=== PATIENT | male | born 1940 | race Caucasian/White ===

== ENCOUNTER 2017-09-27 08:29 | Emergency (ER) | payer MEDICARE, OTHER, SELFPAY ==
[2017-09-27 08:30] VITALS: BP 126/63; PULSE 111; RESP 24; TEMP 36.6; O2SAT 96; BMI 23.3
--- NOTE | 2017-09-27 08:35 | EKG12_ITS ---
Test Reason : N/V Blood Pressure : / mmHG Vent. Rate : 081 BPM Atrial Rate : 081 BPM P-R Int : 166 ms QRS Dur : 088 ms QT Int : 384 ms P-R-T Axes : 072 -10 067 degrees QTc Int : 446 ms Normal sinus rhythm Low voltage QRS Borderline ECG Confirmed by JUN DESAI, EMEKA ([id number]), editor trade journal JESUS SORENSEN ([id number]) on 10/01/2017 1:14:06 PM Referred By: RADHA Confirmed By:EMEKA BARAHONA MD
--- NOTE | 2017-09-27 08:41 | CT_ITS ---
STUDY: CT ABDOMEN AND PELVIS WITHOUT CONTRAST REASON FOR EXAM: Male, 77 years old. Abdominal pain, nausea, vomiting and diarrhea. RADIATION DOSAGE (If Supplied By Facility): CTDIvol = ( 6.68 ) mGy, DLP = ( 340.51 ) mGycm TECHNIQUE: Transaxial images were obtained from the dome of the diaphragm to the symphysis pubis without oral contrast, and without intravenous contrast. Sagittal and coronal images were reconstructed. Individualized dose optimization techniques were used for this CT. COMPARISON: 09/29/2014 CT abdomen/pelvis. FINDINGS: CT abdomen limited without IV contrast. The visualized lung bases appear clear of focal pulmonary consolidation or pleural effusion with only minimal groundglass opacities of subsegmental atelectasis noted. The visualized portions of the heart are within normal limits. No pericardial effusion seen. Normal liver. Normal intrahepatic and extrahepatic biliary system. Gallbladder not visualized, most likely prior cholecystectomy. Normal spleen. Normal pancreas. Normal bilateral adrenal glands. Normal right kidney. Normal left kidney. No hydronephrosis or hydroureter seen. Redemonstration prominent left extrarenal pelvis and/or peripelvic cysts, appear unchanged in CT study 09/29/2014. Stomach appears distended mostly with fluid and minimal nondependent air and shows no large bulky focal lesion. Visualized distal esophagus appears within normal limits. However, the small bowel shows multiple air-fluid levels and appear prominent without dilatation up to 2.9 cm diameter. Transition point is not identified and fluid-filled cecum is seen and the ascending colon. The appendix is suspected retrocecally and medially, does not appear thickened. Normal abdominal aorta. Normal inferior vena cava. Normal retroperitoneum. Moderate distended urinary bladder shows no large gross bulky focal lesion. Seminal vesicles appear symmetric. Prostate is approximate 3.5 x 5.4 cm, mildly enlarged, previously 4.6 x 4.9 cm. No abdomen/pelvis or visualized inguinal large gross bulky adenopathy identified. Normal abdominal wall without ventral/inguinal bowel herniation identified. Nonacute osseous structures. Moderate degenerative thoracolumbar junction noted. Mild anterolisthesis L4-L5 noted, grade 1. With associated severe spinal canal stenosis noted. Fairly severe L3-L4 and moderate L5-S1 disc space narrowing seen. Mild posterior central osteophytosis L5-S1 also noted CT/Abdomen/Pelvis without Cont IMPRESSION: CT findings most consistent with ileus or gastroenteritis with fluid-filled nondilated small bowel loops throughout the jejunum and ileum without transitional zone and with fluid-filled cecum and ascending colon. Clinical correlation for malabsorption syndrome also recommended. CT findings most suggestive of prior cholecystectomy. Clinical correlation recommended. Mild prostamegaly, mildly increased since CT abdomen/pelvis 09/29/2014. Clinical correlation recommended. Severe spinal stenosis L4-L5 as described above associated with mild grade I anterolisthesis. Limitations above. Electronically Signed: Lemuel Ron, at 12:05 EDT Tel , Service support ,
--- NOTE | 2017-09-27 08:44 | ED.DCSUM_ITS ---
- ER Visit Summary Date of Service: 09/27/17 Chief Complaint: [] Lower abdominal pain diarrhea nausea History of Present Illness: The patient is a 77 M [] prostatitis, prior cholecystectomy, reports that for about 3 weeks she has had intermittent pain to the left lower quadrant that would occur almost always medially after he ate he would then have a bowel movement or pass gas and feel better for the last 2 days after eating he has had pain to the lower abdomen that has not gone away he also reports now is having copious diarrhea he has a sense of vomiting but is only had nausea. No fever no cough no blood in the diarrhea. He was on antibiotics 5 weeks ago related to prostate issue, he has no history of C. difficile exposure to bad food or anyone has been ill, he has had prior colonoscopies are unremarkable he denies any other past history Physical Examination: [] He is vitals are within normal range she is resting in the bed he is complaining of pain to the left lower abdomen head neck chest unremarkable the abdomen is soft there is some mild discomfort to the left lower abdomen there is no rebound guarding organomegaly the exam shows no hernias no testicular abnormalities on inspection the back is unremarkable neurologically he is awake alert moving all 4 extremities his extremities are unremarkable Test Results: [] Emergency Department Course and Treatment: [] Given all of the above he will be treated with IV fluids medications CT of abdomen Labs are unremarkable the CT scan of the abdomen shows per radiology nothing acute, the GI system seems to be full of fluid appendix appeared normal He has not been able to provide stool sample for C. difficile analysis he is feeling better he has no sense of stool sample. He wants to go home explained all the above to him of explained and felt his family doctors stay in a bland diet he will be given Zofran to use as needed and return for change in symptoms Treatment Plan: [] Disposition: [] Stable home, please note patient was unable to provide stool sample for C. difficile Impression: [] Intermittent abdominal pain with diarrhea resolved recent antibiotic use This note was generated with [employer] dictation software. It may contain incorrect words, spelling, and punctuation that were not noted in review of the chart prior to signing ED Disposition - Plan for ED Patient: Chief Complaint: Nausea/Vomiting/Diarrhea Referrals: Nas Arvizu Chi, MD [Primary Care Provider] -
[2017-09-27 09:49] LABS: Absolute Lymphocyte Count 0.36 X10^3/ul (0.83-4.51); Absolute Neutrophil Count 6.8 X10^3/uL (2.0-7.7); Basophil# 0.01 X10^3/uL; Basophil% 0.1 % (0-1); Differential Indicated SCAN CRITERIA MET; Hematocrit 44.9 % (40-54); Hemoglobin 15.3 g/dl (13.0-16.5); Lymphocyte # 0.36 X10^3/ul (4.0); Lymphocyte % 4.7 % (19-41); Mean Corp Hgb Conc 34.1 g/gl (32-36); Mean Corpuscular Hgb 33.1 pg (27.0-32.0); Mean Corpuscular Volume 97.2 fL (80-94); Mean Platelet Vol. 9.2 fl (6.2-12.0); Monocyte# 0.56 X10^3/uL; Monocyte% 7.2 % (0-10); Neutrophil # 6.79 X10^3/uL (2.7-7.7); Neutrophil % 87.9 % (47-70); POSITIVE COUNT NO; POSITIVE DIFFERENTIAL YES; POSITIVE MORPHOLOGY NO; Platelet Count 228 K/mm3 (150-450); RBC Distribution Width CV 12.7 % (11.6-14.6); RBC Distribution Width SD 44.1 fl (35.1-43.9); Red Blood Count 4.62 M/mm3 (4.6-6.2); White Blood Count 7.7 K/mm3 (4.4-11.0)
[2017-09-27] MEDS: Ondansetron 4 MG/2 ML Vial IV (09:56)
[2017-09-27] MEDS: Morphine 4 MG/ML Syringe IV (09:59)
[2017-09-27] MEDS: 0.9% Normal Saline 1,000 ML 999 ML IV (10:01)
[2017-09-27 10:03] VITALS: BP 121/65; PULSE 76; RESP 18; O2SAT 99
[2017-09-27 10:09] LABS: AST(SGOT) 13 U/L (15-37); Alanine Aminotransfer ALT/SGPT 21 U/L (16-61); Albumin, Serum 3.5 g/dL (3.2-5.0); Alkaline Phosphatase 89 U/L (45-117); Anion Gap 8 (5-15); BUN 26 mg/dL (7-18); BUN/Creat Ratio 23.6 RATIO (10-20); Bilirubin, Direct 0.21 mg/dL (0.00-0.30); Calcium,Total 7.9 mg/dL (8.5-10.1); Chloride 105 mmol/L (98-107); EST Glomerular Filtration Rate 69 mL/min (>60); Est Glom Filt Rate - Afr Amer 84 mL/min (>60); Estimated Creatinine Clearance 60.85 ml/min; Globulin 3.5 g/dL (2.2-4.2); Glucose 122 mg/dL (74-106); Lipase 106 U/L (73-393); Potassium 3.5 mmol/L (3.5-5.1); Sodium Level 139 mmol/L (136-145)
[2017-09-27 10:17] LABS: Red Cell Morphology NORM C+C NORMAL (NORM C&C)
[2017-09-27 11:53] VITALS: BP 111/64; PULSE 70; RESP 18
[2017-09-27] MEDS: 0.9% Normal Saline 1,000 ML 125 ML IV (11:54)
--- NOTE | 2017-09-27 12:57 | ED.DEP ---
ED Disposition - Plan for ED Patient: Chief Complaint: Nausea/Vomiting/Diarrhea Instructions: ED Vomiting Diarrhea Nonspecific Ad Referrals: Nas Arvizu Chi, MD [Primary Care Provider] -
--- NOTE | 2017-09-27 12:59 | ED.DEP ---
ED Disposition - Plan for ED Patient: Chief Complaint: Nausea/Vomiting/Diarrhea Instructions: ED Vomiting Diarrhea Nonspecific Ad Prescriptions: Ondansetron HCl [Zofran] 4 mg PO BID #10 tab Referrals: Nas Arvizu Chi, MD [Primary Care Provider] -
[2017-09-27 13:50] VITALS: BP 115/64; PULSE 74; RESP 18; O2SAT 98
== END 2017-09-27 13:52 | disposition home or self-care (01) ==
PROVIDERS: Emergency Provider Emergency Medicine; Family Provider Family Medicine Geriatric Medicine; PCP Family Medicine Geriatric Medicine
DX: R10.32 Left lower quadrant pain (principal); R19.7 Diarrhea, unspecified; Z90.49 Acquired absence of other specified parts of digestive tract; Z79.82 Long term (current) use of aspirin
CPT/HCPCS: 74176; 80048; 80076; 83690; 84484; 85025; 93005; 96361; 96374; 96375; 99283; J7030; A4216; J2405

== ENCOUNTER → 2017-10-02 16:50 | Outpatient (CLI) | payer MEDICARE, OTHER, SELFPAY ==
--- NOTE | 2017-10-02 16:55 | RAD_ITS ---
XR Spine Lumbar 2 or 3 Views INDICATION: LUMBAR RADICULOPATHY COMPARISON: CT abdomen and pelvis September 27, 2017 TECHNIQUE: Frontal and lateral views of the lumbar spine and coned-down view of the lumbosacral junction FINDINGS: There is mild anterolisthesis of L4 on L5, otherwise normal lumbar lordosis, no significant scoliosis. Height of the vertebral bodies is preserved. Multilevel facet arthritic changes are suggested. The L3-4 disc space appears decreased. 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 Comparison CT from September 27, 2017 confirms mild anterolisthesis of L4 on L5 is associated spinal canal and bilateral neuroforaminal stenosis. Consider further evaluation with MRI if clinical symptoms persist. at 1739 Reported and signed by: Sonali Fischer MD Electronically Signed: Sonali Fischer MD at 16:37 EDT Tel , Service support ,
== END ==
PROVIDERS: Family Provider Family Medicine Geriatric Medicine; PCP Family Medicine Geriatric Medicine; Visit Provider Family Medicine Geriatric Medicine
DX: M51.16 Intervertebral disc disorders with radiculopathy, lumbar region (principal)
CPT/HCPCS: 72100

== ENCOUNTER → 2018-01-14 15:07 | Outpatient (CLI) | payer MEDICARE, OTHER, SELFPAY ==
[2018-01-14 18:03] LABS: Vitamin D,25 Hydroxy 20.7 ng/mL (29.95-100.01)
[2018-01-14 18:06] LABS: ALB/GLOB Ratio 1.1 RATIO (0.9-2.4); AST(SGOT) 17 U/L (15-37); Alanine Aminotransfer ALT/SGPT 25 U/L (16-61); Albumin, Serum 3.7 g/dL (3.2-5.0); Alkaline Phosphatase 90 U/L (45-117); Anion Gap 7 (5-15); BUN 17 mg/dL (7-18); BUN/Creat Ratio 18.2 RATIO (10-20); Calcium,Total 8.4 mg/dL (8.5-10.1); Chloride 106 mmol/L (98-107); Creatinine, Serum 0.93 mg/dL (0.70-1.30); EST Glomerular Filtration Rate 83 mL/min (>60); Est Glom Filt Rate - Afr Amer 101 mL/min (>60); Globulin 3.5 g/dL (2.2-4.2); Glucose 85 mg/dL (74-106); Protein, Total 7.2 g/dL (6.4-8.2); Sodium Level 141 mmol/L (136-145); Thyroid Stim Hormone (TSH) 1.69 uIU/mL (0.358-3.74)
[2018-01-14 18:12] LABS: Basophil# 0.01 X10^3/uL; Basophil% 0.2 % (0-1); Eosinophil# 0.18 X10^3/uL; Hematocrit 40.5 % (40-54); Hemoglobin 13.4 g/dl (13.0-16.5); Lymphocyte # 1.17 X10^3/ul (4.0); Lymphocyte % 19.2 % (19-41); Mean Corp Hgb Conc 33.1 g/gl (32-36); Mean Corpuscular Hgb 32.1 pg (27.0-32.0); Mean Corpuscular Volume 97.1 fL (80-94); Mean Platelet Vol. 9.8 fl (6.2-12.0); Monocyte# 0.72 X10^3/uL; Monocyte% 11.8 % (0-10); Neutrophil # 3.99 X10^3/uL (2.7-7.7); Neutrophil % 65.6 % (47-70); POSITIVE COUNT NO; POSITIVE DIFFERENTIAL NO; POSITIVE MORPHOLOGY NO; Platelet Count 207 K/mm3 (150-450); RBC Distribution Width CV 12.7 % (11.6-14.6); RBC Distribution Width SD 44.2 fl (35.1-43.9); Red Blood Count 4.17 M/mm3 (4.6-6.2); White Blood Count 6.1 K/mm3 (4.4-11.0)
== END ==
PROVIDERS: Visit Provider Family Medicine Geriatric Medicine
DX: E55.9 Vitamin D deficiency, unspecified (principal); R53.83 Other fatigue
CPT/HCPCS: 36415; 80053; 82306; 84443; 85025

== ENCOUNTER → 2018-02-06 12:07 | Outpatient (CLI) | payer MEDICARE, OTHER, SELFPAY ==
[2018-02-06 12:58] LABS: Absolute Lymphocyte Count 0.96 X10^3/ul (0.83-4.51); Absolute Neutrophil Count 3.2 X10^3/uL (2.0-7.7); Basophil# 0.03 X10^3/uL; Basophil% 0.6 % (0-1); Lymphocyte # 0.96 X10^3/ul (4.0); Lymphocyte % 18.9 % (19-41); Mean Corp Hgb Conc 34.1 g/gl (32-36); Mean Corpuscular Hgb 32.1 pg (27.0-32.0); Mean Corpuscular Volume 94.2 fL (80-94); Mean Platelet Vol. 9.3 fl (6.2-12.0); Monocyte# 0.82 X10^3/uL; Monocyte% 16.1 % (0-10); Neutrophil # 3.17 X10^3/uL (2.7-7.7); Neutrophil % 62.2 % (47-70); Platelet Count 207 K/mm3 (150-450); RBC Distribution Width CV 12.6 % (11.6-14.6); RBC Distribution Width SD 42.7 fl (35.1-43.9); Red Blood Count 4.67 M/mm3 (4.6-6.2); White Blood Count 5.1 K/mm3 (4.4-11.0)
[2018-02-06 13:08] LABS: Differential Indicated SCAN CRITERIA MET; POSITIVE COUNT NO; POSITIVE DIFFERENTIAL NO; POSITIVE MORPHOLOGY YES
[2018-02-06 13:10] LABS: ALB/GLOB Ratio 0.9 RATIO (0.9-2.4); AST(SGOT) 17 U/L (15-37); Alanine Aminotransfer ALT/SGPT 19 U/L (16-61); Albumin, Serum 3.5 g/dL (3.2-5.0); Alkaline Phosphatase 90 U/L (45-117); Amylase 48 U/L (25-115); Anion Gap 8 (5-15); BUN 17 mg/dL (7-18); BUN/Creat Ratio 15.3 RATIO (10-20); Calcium,Total 8.5 mg/dL (8.5-10.1); Chloride 102 mmol/L (98-107); Creatinine, Serum 1.11 mg/dL (0.70-1.30); EST Glomerular Filtration Rate 68 mL/min (>60); Est Glom Filt Rate - Afr Amer 83 mL/min (>60); Globulin 4.1 g/dL (2.2-4.2); Glucose 95 mg/dL (74-106); Lipase 94 U/L (73-393); Potassium 3.7 mmol/L (3.5-5.1); Protein, Total 7.6 g/dL (6.4-8.2); Sodium Level 139 mmol/L (136-145)
== END ==
PROVIDERS: Family Provider Family Medicine Geriatric Medicine; PCP Family Medicine Geriatric Medicine; Visit Provider Family Medicine Geriatric Medicine
DX: R10.9 Unspecified abdominal pain (principal); R19.7 Diarrhea, unspecified
CPT/HCPCS: 36415; 80053; 82150; 83690; 85025

== ENCOUNTER → 2018-02-06 16:16 | Outpatient (CLI) | payer MEDICARE, OTHER, SELFPAY ==
--- OUTSIDE RECORDS SUMMARY | 2018-07-27 00:20 | XMS RPT_ITS ---
:1940 Author Organization OHIP Support Name Relationship Address Phone ALEXANDER PERAZA Unavailable [address] + [place] [address] R Unavailable Unavailable Unavailable LAZO, TOM Unavailable [address] + [place] [address] SHAQBASIA ALEXANDER Unavailable [address] + [place] [address] R Unavailable Unavailable Unavailable LAZO, TOM Unavailable [address] + [place] [address] ALEXANDER PERAZA Unavailable [address] + [place] [address] R Unavailable Unavailable Unavailable LAZO, TOM Unavailable [address] + [place] [address] ALEXANDER PERAZA Unavailable [address] + [place] [address] R Unavailable Unavailable Unavailable LAZO, TOM Unavailable [address] + [place] [address] ALEXANDER PERAZA Unavailable [address] + [place] [address] R Unavailable Unavailable Unavailable LAZO, TOM Unavailable [address] + [place] [address] ALEXANDER PERAZA Unavailable [address] + [place] [address] R Unavailable Unavailable Unavailable LAZO, TOM Unavailable [address] + [place] [address] ALEXANDER PERAZA Unavailable [address] + [place] [address] R Unavailable Unavailable Unavailable LAZO, TOM Unavailable [address] + [place] [address] ALEXANDER PERAZA Unavailable [address] + [place] [address] R Unavailable Unavailable Unavailable TOM LAZO Unavailable [address] + [place] [address] ALEXANDER PERAZA Unavailable [address] + [place] [address] R Unavailable Unavailable Unavailable TOM LAZO Unavailable [address] + [place] [address] Care Team Providers Name Role Phone Nolberto, Nas Chi Attending Unavailable Nolberto, Nas Chi Primary Care Unavailable Adelaide Giles Attending Unavailable Nolberto, Nas Chi Primary Care Unavailable Nolberto, Nas Chi Attending Unavailable Nolberto, Nas Chi Primary Care Unavailable Nolberto, Nas Chi Primary Care Unavailable Adelaida Kramer Attending Unavailable Nolberto, Nas Chi Attending Unavailable Nolberto, Nas Chi Referring Unavailable Nolberto, Nas Chi Primary Care Unavailable Nolberto, Nas Chi Attending Unavailable Nolberto, Nas Chi Attending Unavailable Nolberto, Nas Chi Primary Care Unavailable Samy Riggs Attending Unavailable Nolberto, Nas Chi Primary Care Unavailable Oneil Samy Referring Unavailable Nolberto, Nas Chi Attending Unavailable Nolberto, Nas Chi Referring Unavailable Nolberto, Nas Chi Primary Care Unavailable PROBLEMS PROBLEMS DATE TYPE CONDITION / CODE ATTENDING STATUS SOURCE 01/17/2018 Unknown 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, 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, Community unspecified / Hospital E55.9(ICD-10) Repository 01/17/2018 Unknown R10.32 - Left Jwayyed, Active [place] lower quadrant [facility] pain / Hospital R10.32(ICD-10) Repository PROCEDURES PROCEDURES No Procedure Records FoundRESULTS RESULTS CREATININE FINGERSTICK Collected: 04/17/2018 Status: F Source: [place] 12:30 PM [facility] HOSPITAL REPOSITORY TYPE CODE TESTS RESULT OUT OF RANGE REFERENCE UNITS LAB L9100.0210 0.70-1.30 mg/dL Normal CREATININE WB 0.8 LAB L9100.0220 >60 mL/min EGFR WB Normal > 60.0000 Performed By: #### L9100.0200 #### [facility] Laboratory Point of Care [address] [place] [address] BRAIN W/WO CONTRAST Observed: 04/17/2018 Status: F Source: [place] 12:26 PM [facility] REPOSITORY [facility] Imaging Services [address] [place] [address] Brain W/WO Contrast MR#: [id number] Acct: [id number] Name: EMY PERAZA Rep #: [id number] : 1940 M 78 From: Gayla Davis PCP: Nolberto DESAI,[facility] Status: REG CLI Study: Brain W/WO Contrast Date of Exam: 04/17/18 Exam# [id number] Ordering Dr: Samy Riggs MD STUDY: MRI BRAIN WITH AND WITHOUT CONTRAST (ATTENTION INTERNAL AUDITORY CANALS - I.A.C.'s) REASON FOR EXAM: Male, 78 years old. LEFT TINNITUS, ASYMMETRIC HEARING LOSS -- sudden left hearing loss gradually returning. TECHNIQUE: Standardized multiplanar fat and water weighted pulse sequences were obtained. 7 ml of Gadavist contrast material was administered intravenously for the contrast portion of the examination. # of Images: 442 COMPARISON: None. FINDINGS: Normal bilateral temporal bones. Normal bilateral internal auditory canals. There is no demonstrated intracanalicular or cisternal vestibular schwannoma (acoustic neuroma). There is no enhancement of the bilateral VIIth or VIIIth cranial nerves. Normal bilateral cochlea, vestibules and semicircular canals. There is mild cerebral atrophy with widening of the extra- axial spaces and ventricular dilatation. Normal white matter tracts of the supratentorial brain. Normal bilateral basal ganglia. Normal thalami. Normal flow voids within the major intracranial circulation suggesting patency by spin echo criteria. Normal venous enhancement. There is no enhancing intra-axial or extra-axial abnormality. There is no extra-axial fluid accumulation. Normal sella turcica, pituitary gland, infundibular stalk, optic chiasm and hypothalamus. Normal tectal plate and pineal gland. Normal midbrain, rebecca and medulla. Normal cerebellum. Normal basal cisterns. No demonstrated orbital abnormality, within the constraints of a routine brain study. Normal visualized paranasal sinuses. Normal calvarium and skull base. Normal visualized soft tissue structures. Normal visualized upper cervical spine. MRI/Brain W/WO Contrast IMPRESSION: Unremarkable unenhanced and enhanced MRI of the bilateral internal auditory canals (I.A.C's). Electronically Signed: Gayla Davis MD at 13:09 EDT Tel , Service support , CC: Samy Riggs MD; Nas Arvizu MD Doll Wig Maker: Signed CBC W/DIFF, AUTOMATED Collected: 02/06/2018 Status: F Source: [place] 12:09 PM [facility] REPOSITORY TYPE CODE TESTS RESULT OUT OF RANGE REFERENCE UNITS LAB L100.1000 4.4-11.0 K/mm3 Normal WBC 5.1 LAB L100.1200 4.6-6.2 M/mm3 Normal RBC 4.67 LAB L100.1300 13.0-16.5 g/dl Normal HGB 15.0 LAB L100.1400 40-54 % Normal HCT 44.0 LAB L100.1500 80-94 fL High MCV 94.2 LAB L100.1600 27.0-32.0 pg High MCH 32.1 LAB L100.1700 32-36 g/gl Normal MCHC 34.1 LAB L100.1810 11.6-14.6 % Normal RDW CV 12.6 LAB L100.1820 35.1-43.9 fl Normal RDW SD 42.7 LAB L100.1900 150-450 K/mm3 Normal PLT 207 LAB L100.2000 6.2-12.0 fl Normal MPV 9.3 LAB L100.2100 47-70 % Normal NEUT% 62.2 LAB L100.2200 19-41 % Low LY% 18.9 LAB L100.2300 0-10 % High MONO% 16.1 LAB L100.2400 0-5 % Normal EO% 2.0 LAB L100.2500 0-1 % Normal BASO% 0.6 LAB L100.2550 0.0-0.9 % Normal IM GRAN % 0.200 Result Comment: IG% - Immature Granulocytes (promyelocytes, myelocytes and metamyelocytes) > 1% indicates that a LEFT SHIFT is Present. LAB L100.2620 2.0-7.7 X10 3/uL Normal Absolute Neut 3.2 LAB L100.2720 0.83-4.51 X10 3/ul Normal Absolute Lymph 0.96 LAB L100.4500 Normal SMEAR COMMENT COMMENT Result Comment: SLIDE SCANNED - RARE ATYPICAL LYMPHS SEEN. Performed By: #### L100.0100 #### [facility] Laboratory [address] [place], [address] COMPREHENSIVE METABOLIC Collected: 02/06/2018 Status: F Source: [facility] 12:09 PM [facility] REPOSITORY TYPE CODE TESTS RESULT OUT OF RANGE REFERENCE UNITS LAB L501.0100 74-106 mg/dL Normal GLU 95 Result Comment: Please note revised GLUCOSE reference range effective 2017. LAB L501.1000 7-18 mg/dL Normal BUN 17 LAB L501.1100 0.70-1.30 mg/dL Normal CREAT,SERUM 1.11 Result Comment: The validity of the calculated GFR AND GFRAA in patients over 70 years has not been determined. Clinical correlation is essential. LAB L501.1110 >60 mL/min Normal EST GFR 68 Result Comment: Non- GFR Calc LAB L501.1115 >60 mL/min Normal EST GFR - AA 83 Result Comment: GFR Calc LAB L501.1300 10-20 RATIO Normal BUN/CRE 15.3 LAB L501.1500 6.4-8.2 g/dL T Normal PROT 7.6 LAB L501.1800 3.2-5.0 g/dL Normal ALB 3.5 LAB L501.1950 2.2-4.2 g/dL Normal GLOB 4.1 LAB L501.2000 0.9-2.4 RATIO Normal A/G 0.9 LAB L501.2200 8.5-10.1 mg/dL CA Normal 8.5 LAB L501.4100 15-37 U/L Normal AST 17 LAB L501.4305 45-117 U/L Normal ALK P 90 LAB L501.4405 16-61 U/L Normal ALT 19 LAB L501.4600 0.20-1.00 mg/dL T Normal BILI 0.40 LAB L501.5300 136-145 mmol/L NA Normal 139 LAB L501.5600 3.5-5.1 mmol/L K Normal 3.7 LAB L501.5900 98-107 mmol/L CL Normal 102 LAB L501.6100 21.0-32.0 mmol/L Normal CO2 29.0 LAB L501.6200 5-15 Normal GAP 8 Performed By: #### L500.4050, L501.2400, L501.2450 #### [facility] Laboratory [address] [place], [address] AMYLASE Collected: 02/06/2018 Status: F Source: [place] 12:09 PM [facility] REPOSITORY TYPE CODE TESTS RESULT OUT OF RANGE REFERENCE UNITS LAB L501.2400 25-115 U/L Normal NITHYA 48 Performed By: #### L500.4050, L501.2400, L501.2450 #### [facility] Laboratory [address] [place], [address] LIPASE Collected: 02/06/2018 Status: F Source: [place] 12:09 PM [facility] REPOSITORY TYPE CODE TESTS RESULT OUT OF RANGE REFERENCE UNITS LAB L501.2450 73-393 U/L Normal LIPASE 94 Performed By: #### L500.4050, L501.2400, L501.2450 #### [facility] Laboratory [address] [place], [address] Observed: 02/06/2018 Status: F Source: [place] STOOL OCCULT BLOOD 12:00 AM [facility] IFOB REPOSITORY STOB iFOB Occult Blood Positive ORGANISM 1: OCCULT BLOOD POSITIVE Performed By: #### M100.7900, M100.0605, M100.6796, M100.637 #### [facility] Laboratory [address] [place], [address] STOOL Observed: 02/06/2018 Status: F Source: [place] LACTOFERRIN/WBC 12:00 AM [facility] REPOSITORY Stool Lacto/WBC Normal Reference Range = Negative Fecal WBC Lactoferrin Positive: Fecal WBC Lactoferrin present Performed By: #### M100.7900, M100.0605, M100.6796, M100.637 #### [facility] Laboratory [address] [place], [address] Observed: 02/06/2018 Status: F Source: [place] CDIFF (MOLECULAR) 12:00 [facility] REPOSITORY Cdiff-Molecular Normal Reference Range = Negative C. Diff DNA Negative- No toxigenic C. Diff DNA Detected NAAT METHOD Testing was performed using nucleic acid amplification Performed By: #### M100.7900, M100.0605, M100.6796, M100.637 #### [facility] [address] [place], [address] Observed: 02/06/2018 Status: F Source: [place] ENTERIC PATHOGEN 12:00 [facility] PANEL STOOL REPOSITORY PANEL STOOL Normal Reference Range = Not Detected Campylobacter species detected to include one or more of the following: C. coli, C. jejuni, and C. mike. Susceptibility testing not routinely performed. Most Campylobacter infections are self-limiting but antimicrobial treatment (eg. macrolides, fluoroquinolones) may be needed in systemic cases or in severe or prolonged cases. ID consult is recommended in these cases. This is an amplified DNA test which makes it both specific and sensitive. RESULTS CALLED TO /NURSE LINE 02/07/18 1011 Dawna Man. Copy of report sent to Infection Control Printer [id number] 02/07/18 1011 HETALNNON. CAMPYLOBACTER Campylobacter sp. Detected Salmonella Not Detected Shigella sp. Not Detected Shiga Toxin Not Detected Yersinia Not Detected VIBRIO Not Detected Norovirus Not Detected Rotavirus Not Detected ORGANISM 1: Campylobacter species Performed By: #### M100.7900, M100.0605, M100.6796, M100.637 #### [facility] Laboratory [address] [place], [address] Observed: 02/06/2018 Status: F Source: [place] OVA AND PARASITES 12:00 [facility] REPOSITORY O + P OVA AND PARASITES EXAM, ROUTINE These results were obtained using wet preparation(s) and trichrome stained smear. This test does not include testing for Crytosporidium parvum, Cyclospora, or Microsporidia. TESTING PERFORMED AT [facility]. ORIGINAL REPORT ON FILE IN LAB CONTAINS ADDITIONAL TEST SITE INFORMATION. Ova/Parasite Exam NO OVA, CYSTS, OR PARASITES FOUND. Performed By: #### M600.5000 #### [facility] Laboratory [address] [place], [place], [address] VITAMIN D,25 HYDROXY Collected: 01/14/2018 Status: F Source: [place] 3:49 PM [facility] REPOSITORY TYPE CODE TESTS RESULT OUT OF REFERENCE UNITS RANGE LAB L506.1000 29.95-100.01 ng/mL Low Vitamin D 20.7 25-OH Result Comment: Vitamin D 25(OH) Status Range Deficiency <20 ng/mL (50nmol/L) Insuffciency 20 - 30 ng/mL (50 - 75 nmol/L) Sufficiency 30 - 100 ng/mL (75 - 250 nmol/L) Toxicity >100 ng/mL (>250 nmol/L) Performed By: #### L506.1000 #### [facility] Laboratory [address] [place], [place], [address] COMPREHENSIVE METABOLIC Collected: 01/14/2018 Status: F Source: [facility] 3:49 PM [facility] REPOSITORY TYPE CODE TESTS RESULT OUT OF RANGE REFERENCE UNITS LAB L501.0100 74-106 mg/dL Normal GLU 85 Result Comment: Please note revised GLUCOSE reference range effective 2017. LAB L501.1000 7-18 mg/dL Normal BUN 17 LAB L501.1100 0.70-1.30 mg/dL Normal CREAT,SERUM 0.93 Result Comment: The validity of the calculated GFR AND GFRAA in patients over 70 years has not been determined. Clinical correlation is essential. LAB L501.1110 >60 mL/min Normal EST GFR 83 Result Comment: Non- GFR Calc LAB L501.1115 >60 mL/min Normal EST GFR - AA 101 Result Comment: GFR Calc LAB L501.1300 10-20 RATIO Normal BUN/CRE 18.2 LAB L501.1500 6.4-8.2 g/dL T Normal PROT 7.2 LAB L501.1800 3.2-5.0 g/dL Normal ALB 3.7 LAB L501.1950 2.2-4.2 g/dL Normal GLOB 3.5 LAB L501.2000 0.9-2.4 RATIO Normal A/G 1.1 LAB L501.2200 8.5-10.1 mg/dL Low CA 8.4 LAB L501.4100 15-37 U/L Normal AST 17 LAB L501.4305 45-117 U/L Normal ALK P 90 LAB L501.4405 16-61 U/L Normal ALT 25 LAB L501.4600 0.20-1.00 mg/dL T Normal BILI 0.60 LAB L501.5300 136-145 mmol/L NA Normal 141 LAB L501.5600 3.5-5.1 mmol/L K Normal 4.0 LAB L501.5900 98-107 mmol/L CL Normal 106 LAB L501.6100 21.0-32.0 mmol/L Normal CO2 28.0 LAB L501.6200 5-15 Normal GAP 7 Performed By: #### L500.4050, L501.9520 #### [facility] Laboratory [address] [place], [place], [address] THYROID STIM HORMONE Collected: 01/14/2018 Status: F Source: [place] ([facility]) 3:49 PM [facility] REPOSITORY TYPE CODE TESTS RESULT OUT OF RANGE REFERENCE UNITS LAB L501.9520 0.358-3.74 uIU/mL Normal TSH 1.69 Performed By: #### L500.4050, L501.9520 #### [facility] Laboratory [address] [place], [address] CBC W/DIFF, AUTOMATED Collected: 01/14/2018 Status: F Source: [place] 3:49 PM [facility] REPOSITORY TYPE CODE TESTS RESULT OUT OF RANGE REFERENCE UNITS LAB L100.1000 4.4-11.0 K/mm3 Normal WBC 6.1 LAB L100.1200 4.6-6.2 M/mm3 Low RBC 4.17 LAB L100.1300 13.0-16.5 g/dl Normal HGB 13.4 LAB L100.1400 40-54 % Normal HCT 40.5 LAB L100.1500 80-94 fL High MCV 97.1 LAB L100.1600 27.0-32.0 pg High MCH 32.1 LAB L100.1700 32-36 g/gl Normal MCHC 33.1 LAB L100.1810 11.6-14.6 % Normal RDW CV 12.7 LAB L100.1820 35.1-43.9 fl High RDW SD 44.2 LAB L100.1900 150-450 K/mm3 Normal PLT 207 LAB L100.2000 6.2-12.0 fl Normal MPV 9.8 LAB L100.2100 47-70 % Normal NEUT% 65.6 LAB L100.2200 19-41 % Normal LY% 19.2 LAB L100.2300 0-10 % High MONO% 11.8 LAB L100.2400 0-5 % Normal EO% 3.0 LAB L100.2500 0-1 % Normal BASO% 0.2 LAB L100.2550 0.0-0.9 % Normal IM GRAN % 0.200 Result Comment: IG% - Immature Granulocytes (promyelocytes, myelocytes and metamyelocytes) > 1% indicates that a LEFT SHIFT is Present. LAB L100.2620 2.0-7.7 X10 3/uL Normal Absolute Neut 4.0 LAB L100.2720 0.83-4.51 X10 3/ul Normal Absolute Lymph 1.20 Performed By: #### L100.0100 #### [facility] Laboratory [address] [facility] [place], [place], [address] LUMBAR SPINE 2 OR 3 Observed: 10/02/2017 Status: F Source: [place] VIEWS 5:01 PM [facility] REPOSITORY [facility] Imaging Services [address] [place] [address] Lumbar Spine 2 or 3 Views MR#: [id number] Acct: [id number] Name: EMY PERAZA Rep #: [id number] : 1940 M 77 From: Sonali Fischer MD PCP: Nas Arvizu MD, Chi Status: REG CLI Study: Lumbar Spine 2 or 3 Views Date of Exam: 10/02/17 Exam# [id number] Ordering Dr: Nas Arvizu MD XR Spine Lumbar 2 or 3 Views INDICATION: LUMBAR RADICULOPATHY COMPARISON: CT abdomen and pelvis September 27, 2017 TECHNIQUE: Frontal and lateral views of the lumbar spine and coned-down view of the lumbosacral junction FINDINGS: There is mild anterolisthesis of L4 on L5, otherwise normal lumbar lordosis, no significant scoliosis. Height of the vertebral bodies is preserved. Multilevel facet arthritic changes are suggested. The L3-4 disc space appears decreased. 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 Comparison CT from September 27, 2017 confirms mild anterolisthesis of L4 on L5 is associated spinal canal and bilateral neuroforaminal stenosis. Consider further evaluation with MRI if clinical symptoms persist. at 1739 Reported and signed by: Sonali Fischer MD Electronically Signed: Sonali Fischer MD at 16:37 EDT Tel , Service support , CC: Nas Arvizu MD Doll Wig Maker: Signed 12 LEAD ELECTROCARDIOGRAM Observed: 10/01/2017 Status: F Source: [place] 1:14 PM [facility] REPOSITORY [facility] Cardiovascular Services [address] [place] [address] 12 Lead EKG 09/27/17 0844 MR#: [id number] Acct: [id number] Name: EMY PERAZA Rep #: [id number] : 1940 77 From: Xander Mast MD Attending Dr: Status: DEP ER Ordering Dr: Adelaida Kramer MD Date: 09/27/17 Location: ED Sex: M C Admitted: Test Reason : N/V Blood Pressure : / mmHG Vent. Rate : 081 BPM Atrial Rate : 081 BPM P-R Int : 166 ms QRS Dur : 088 ms QT Int : 384 ms P-R-T Axes : 072 -10 067 degrees QTc Int : 446 ms Normal sinus rhythm Low voltage QRS Borderline ECG Confirmed by XANDER MAST MD ([id number]), online editor SONALI SORENSEN ([id number]) on 10/01/2017 1:14:06 PM Referred By: RADHA Confirmed By:XANDER MAST MD 10/01/17 1314 Date Xander Mast MD CC: MD Demetris Kramer; Nas Arvizu MD Signed EMERGENCY DEPARTMENT Observed: 09/27/2017 Status: F Source: [place] SUMMARY 5:01 PM [facility] REPOSITORY [facility] Medical Records Department [address] [place] [address] Emergency Department Summary 09/27/17 0843 MR#: [id number] Acct: [id number] Name: EMY PERAZA Rep #: [id number] : 1940 77 From: Adelaida Kramer MD PCP: Nas Arvizu MD, Chi Status: DEP ER - ER Visit Summary Date of Service: 09/27/17 Chief Complaint: [] Lower abdominal pain diarrhea nausea History of Present Illness: The patient is a 77 M [] prostatitis, prior cholecystectomy, reports that for about 3 weeks she has had intermittent pain to the left lower quadrant that would occur almost always medially after he ate he would then have a bowel movement or pass gas and feel better for the last 2 days after eating he has had pain to the lower abdomen that has not gone away he also reports now is having copious diarrhea he has a sense of vomiting but is only had nausea. No fever no cough no blood in the diarrhea. He was on antibiotics 5 weeks ago related to prostate issue, he has no history of C. difficile exposure to bad food or anyone has been ill, he has had prior colonoscopies are unremarkable he denies any other past history Physical Examination: [] He is vitals are within normal range she is resting in the bed he is complaining of pain to the left lower abdomen head neck chest unremarkable the abdomen is soft there is some mild discomfort to the left lower abdomen there is no rebound guarding organomegaly the exam shows no hernias no testicular abnormalities on inspection the back is unremarkable neurologically he is awake alert moving all 4 extremities his extremities are unremarkable Test Results: [] Emergency Department Course and Treatment: [] Given all of the above he will be treated with IV fluids medications CT of abdomen Labs are unremarkable the CT scan of the abdomen shows per radiology nothing acute, the GI system seems to be full of fluid appendix appeared normal He has not been able to provide stool sample for C. difficile analysis he is feeling better he has no sense of stool sample. He wants to go home explained all the above to him of explained and felt his family doctors stay in a bland diet he will be given Zofran to use as needed and return for change in symptoms Treatment Plan: [] Disposition: [] Stable home, please note patient was unable to provide stool sample for C. difficile Impression: [] Intermittent abdominal pain with diarrhea resolved recent antibiotic use This note was generated with [employer] dictation software. It may contain incorrect words, spelling, and punctuation that were not noted in review of the chart prior to signing ED Disposition - Plan for ED Patient: Chief Complaint: Nausea/Vomiting/Diarrhea Referrals: Nas Arvizu Chi, MD [Primary Care Provider] - What to do if you have Problems For any increased pain, shortness of breath, bleeding, nausea or vomiting, chest pain, or any unexpected problems, contact your Primary Care Provider. Call [facility] ([phone]) or report to the closest Emergency Room. Call 911 if necessary. 09/27/17 1701 <Electronically signed by Adelaida Kramer MD> Date Adelaida Kramer MD Cosigner Signature (If Indicated): Date CC: Nas Arvizu MD DISCHARGE INSTRUCTION Observed: 09/27/2017 Status: F Source: [place] 1:00 PM [facility] REPOSITORY [facility] Medical Records Department [address] [place] [address] Discharge Instruction 09/27/17 1259 MR#: [id number] Acct: [id number] Name: EMY PERAZA Rep #: [id number] : 1940 77 From: Adelaida Kramer MD PCP: Nas Arvizu MD, Chi Status: REG ER ED Disposition - Plan for ED Patient: Chief Complaint: Nausea/Vomiting/Diarrhea Instructions: ED Vomiting Diarrhea Nonspecific Ad Prescriptions: Ondansetron HCl [Zofran] 4 mg PO BID #10 tab Referrals: Nas Arvizu Chi, MD [Primary Care Provider] - What to do if you have Problems For any increased pain, shortness of breath, bleeding, nausea or vomiting, chest pain, or any unexpected problems, contact your Primary Care Provider. Call [facility] ([phone]) or report to the closest Emergency Room. Call 911 if necessary. 09/27/17 1300 <Electronically signed by Adelaida Kramer MD> Date Adelaida Kramer MD Cosigner Signature (If Indicated): Date CC: Nas Arvizu MD DISCHARGE INSTRUCTION Observed: 09/27/2017 Status: F Source: [place] 12:57 PM [facility] REPOSITORY [facility] Medical Records Department [address] [place] [address] Discharge Instruction 09/27/17 1257 MR#: [id number] Acct: [id number] Name: HARRISEMY Garcia Rep #: [id number] : 1940 77 From: Adelaida Kramer MD PCP: Nas Arvizu MD, Chi Status: REG ER ED Disposition - Plan for ED Patient: Chief Complaint: Nausea/Vomiting/Diarrhea Instructions: ED Vomiting Diarrhea Nonspecific Ad Referrals: Nas Arvizu Chi, MD [Primary Care Provider] - What to do if you have Problems For any increased pain, shortness of breath, bleeding, nausea or vomiting, chest pain, or any unexpected problems, contact your Primary Care Provider. Call [facility] ([phone]) or report to the closest Emergency Room. Call 911 if necessary. 09/27/17 1257 <Electronically signed by Adelaida Kramer MD> Date Adelaida Kramer MD Cosigner Signature (If Indicated): Date CC: Nas Arvizu MD CBC W/DIFF, AUTOMATED Collected: 09/27/2017 Status: F Source: KAREN 9:40 AM [facility] REPOSITORY TYPE CODE TESTS RESULT OUT OF RANGE REFERENCE UNITS LAB L100.1000 4.4-11.0 K/mm3 Normal WBC 7.7 LAB L100.1200 4.6-6.2 M/mm3 Normal RBC 4.62 LAB L100.1300 13.0-16.5 g/dl Normal HGB 15.3 LAB L100.1400 40-54 % Normal HCT 44.9 LAB L100.1500 80-94 fL High MCV 97.2 LAB L100.1600 27.0-32.0 pg High MCH 33.1 LAB L100.1700 32-36 g/gl Normal MCHC 34.1 LAB L100.1810 11.6-14.6 % Normal RDW CV 12.7 LAB L100.1820 35.1-43.9 fl High RDW SD 44.1 LAB L100.1900 150-450 K/mm3 Normal PLT 228 LAB L100.2000 6.2-12.0 fl Normal MPV 9.2 LAB L100.2100 47-70 % High NEUT% 87.9 LAB L100.2200 19-41 % Low LY% 4.7 LAB L100.2300 0-10 % Normal MONO% 7.2 LAB L100.2400 0-5 % Normal EO% 0.0 LAB L100.2500 0-1 % Normal BASO% 0.1 LAB L100.2550 0.0-0.9 % Normal IM GRAN % 0.100 Result Comment: IG% - Immature Granulocytes (promyelocytes, myelocytes and metamyelocytes) > 1% indicates that a LEFT SHIFT is Present. LAB L100.2620 2.0-7.7 X10 3/uL Normal Absolute Neut 6.8 LAB L100.2720 0.83-4.51 X10 3/ul Low Absolute Lymph 0.36 LAB L100.7000 NORM C AND C NORMAL Normal RED CELL MORPH NORM C+C Performed By: #### L100.0100 #### [facility] Laboratory [address] [place], [address] BASIC METABOLIC Collected: 09/27/2017 Status: F Source: [place] PROFILE (BMP) 9:40 AM [facility] REPOSITORY Order Comment: 'TROP' Serial specimen #1, #2, #3, or #4: 1 TYPE CODE TESTS RESULT OUT OF RANGE REFERENCE UNITS LAB L501.0100 74-106 mg/dL High GLU 122 Result Comment: Fasting Glucose result from 100 to 125 mg/dL suggests IMPAIRED HOMEOSTASIS per A.D.A. criteria. Please note revised GLUCOSE reference range effective 2017. LAB L501.1000 7-18 mg/dL High BUN 26 LAB L501.1100 0.70-1.30 mg/dL Normal CREAT,SERUM 1.10 Result Comment: The validity of the calculated GFR AND GFRAA in patients over 70 years has not been determined. Clinical correlation is essential. LAB L501.1110 >60 mL/min Normal EST GFR 69 Result Comment: Non- GFR Calc LAB L501.1115 >60 mL/min Normal EST GFR - AA 84 Result Comment: GFR Calc LAB L501.1255 ml/min Normal Estimated CRCL 60.85 LAB L501.1300 10-20 RATIO High BUN/CRE 23.6 LAB L501.2200 8.5-10 mg/dL Low .1 CA 7.9 LAB L501.5300 136-14 mmol/L Normal 5 NA 139 LAB L501.5600 3.5-5. mmol/L Normal 1 K 3.5 LAB L501.5900 98-107 mmol/L Normal CL 105 LAB L501.6100 21.0-3 mmol/L Normal 2.0 CO2 26.0 LAB L501.6200 5-15 Normal GAP 8 Performed By: #### L500.2500, L500.3400, L501.2450, L501.4010 #### [facility] Laboratory [address] [facility] [place], [address] LIVER PROFILE Collected: 09/27/2017 Status: F Source: [place] 9:40 AM [facility] REPOSITORY Order Comment: 'TROP' Serial specimen #1, #2, #3, or #4: 1 TYPE CODE TESTS RESULT OUT OF RANGE REFERENCE UNITS LAB L501.1500 6.4-8.2 g/dL Normal T PROT 7.0 LAB L501.1800 3.2-5.0 g/dL Normal ALB 3.5 LAB L501.1950 2.2-4.2 g/dL Normal GLOB 3.5 LAB L501.4100 15-37 U/L Low AST 13 LAB L501.4305 45-117 U/L Normal ALK P 89 LAB L501.4405 16-61 U/L Normal ALT 21 Result Comment: Please note revised ALT reference range effective 2017. LAB L501.4600 0.20-1.00 mg/dL Normal T BILI 0.80 LAB L501.4700 0.00-0.30 mg/dL Normal D BILI 0.21 Performed By: #### L500.2500, L500.3400, L501.2450, L501.4010 #### [facility] Laboratory [address] [facility] [place], [address] LIPASE Collected: 09/27/2017 Status: F Source: [place] 9:40 AM [facility] REPOSITORY Order Comment: 'TROP' Serial specimen #1, #2, #3, or #4: 1 TYPE CODE TESTS RESULT OUT OF RANGE REFERENCE UNITS LAB L501.2450 73-393 U/L Normal LIPASE 106 Performed By: #### L500.2500, L500.3400, L501.2450, L501.4010 #### [facility] [address] [place], [address] TROPONIN-I Collected: 09/27/2017 Status: F Source: KAREN 9:40 AM [facility] REPOSITORY Order Comment: 'TROP' Serial specimen #1, #2, #3, or #4: 1 TYPE CODE TESTS RESULT OUT OF RANGE REFERENCE UNITS LAB L501.4010 <0.06 ng/mL Normal < 0.02 TROPONIN-I Result Comment: TROPONIN-I EXPECTED VALUES <0.05 NEGATIVE 0.06 - 0.59 AT RISK OF NC > OR = 0.60 SUGGEST NC Performed By: #### L500.2500, L500.3400, L501.2450, L501.4010 #### [facility] [address] [place], [address] ABDOMEN/PELVIS WITHOUT Observed: 09/27/2017 Status: F Source: KAREN CONT 8:42 AM [facility] REPOSITORY [facility] Imaging Services [address] [place] [address] Abdomen/Pelvis without Cont MR#: [id number] Acct: [id number] Name: EMY PERAZA Rep #: [id number] : 1940 M 77 From: Lemuel Ron MD PCP: Nolberto DESAI,[facility] Status: REG ER Study: Abdomen/Pelvis without Cont Date of Exam: 09/27/17 Exam# [id number] Ordering Dr: Adelaida Kramer MD STUDY: CT ABDOMEN AND PELVIS WITHOUT CONTRAST REASON FOR EXAM: Male, 77 years old. Abdominal pain, nausea, vomiting and diarrhea. RADIATION DOSAGE (If Supplied By Facility): CTDIvol = ( 6.68 ) mGy, DLP = ( 340.51 ) mGycm TECHNIQUE: Transaxial images were obtained from the dome of the diaphragm to the symphysis pubis without oral contrast, and without intravenous contrast. Sagittal and coronal images were reconstructed. Individualized dose optimization techniques were used for this CT. COMPARISON: 09/29/2014 CT abdomen/pelvis. FINDINGS: CT abdomen limited without IV contrast. The visualized lung bases appear clear of focal pulmonary consolidation or pleural effusion with only minimal groundglass opacities of subsegmental atelectasis noted. The visualized portions of the heart are within normal limits. No pericardial effusion seen. Normal liver. Normal intrahepatic and extrahepatic biliary system. Gallbladder not visualized, most likely prior cholecystectomy. Normal spleen. Normal pancreas. Normal bilateral adrenal glands. Normal right kidney. Normal left kidney. No hydronephrosis or hydroureter seen. Redemonstration prominent left extrarenal pelvis and/or peripelvic cysts, appear unchanged in CT study 09/29/2014. Stomach appears distended mostly with fluid and minimal nondependent air and shows no large bulky focal lesion. Visualized distal esophagus appears within normal limits. However, the small bowel shows multiple air-fluid levels and appear prominent without dilatation up to 2.9 cm diameter. Transition point is not identified and fluid-filled cecum is seen and the ascending colon. The appendix is suspected retrocecally and medially, does not appear thickened. Normal abdominal aorta. Normal inferior vena cava. Normal retroperitoneum. Moderate distended urinary bladder shows no large gross bulky focal lesion. Seminal vesicles appear symmetric. Prostate is approximate 3.5 x 5.4 cm, mildly enlarged, previously 4.6 x 4.9 cm. No abdomen/pelvis or visualized inguinal large gross bulky adenopathy identified. Normal abdominal wall without ventral/inguinal bowel herniation identified. Nonacute osseous structures. Moderate degenerative thoracolumbar junction noted. Mild anterolisthesis L4-L5 noted, grade 1. With associated severe spinal canal stenosis noted. Fairly severe L3-L4 and moderate L5-S1 disc space narrowing seen. Mild posterior central osteophytosis L5-S1 also noted CT/Abdomen/Pelvis without Cont IMPRESSION: CT findings most consistent with ileus or gastroenteritis with fluid-filled nondilated small bowel loops throughout the jejunum and ileum without transitional zone and with fluid-filled cecum and ascending colon. Clinical correlation for malabsorption syndrome also recommended. CT findings most suggestive of prior cholecystectomy. Clinical correlation recommended. Mild prostamegaly, mildly increased since CT abdomen/pelvis 09/29/2014. Clinical correlation recommended. Severe spinal stenosis L4-L5 as described above associated with mild grade I anterolisthesis. Limitations above. Electronically Signed: Lemuel Ron, at 12:05 EDT Tel , Service support , CC: MD Demetris Kramer; Nas Arvizu MD Doll Wig Maker: Signed CBC W/DIFF, AUTOMATED Collected: 07/17/2017 Status: F Source: KAREN 12:24 PM [facility] REPOSITORY TYPE CODE TESTS RESULT OUT OF RANGE REFERENCE UNITS LAB L100.1000 4.4-11.0 K/mm3 Normal WBC 6.5 LAB L100.1200 4.6-6.2 M/mm3 Low RBC 4.32 LAB L100.1300 13.0-16.5 g/dl Normal HGB 13.9 LAB L100.1400 40-54 % Normal HCT 42.8 LAB L100.1500 80-94 fL High MCV 99.1 LAB L100.1600 27.0-32.0 pg High MCH 32.2 LAB L100.1700 32-36 g/gl Normal MCHC 32.5 LAB L100.1810 11.6-14.6 % Normal RDW CV 13.3 LAB L100.1820 35.1-43.9 fl High RDW SD 48.1 LAB L100.1900 150-450 K/mm3 Normal PLT 226 LAB L100.2000 6.2-12.0 fl Normal MPV 9.5 LAB L100.2100 47-70 % High NEUT% 72.2 LAB L100.2200 19-41 % Low LY% 17.4 LAB L100.2300 0-10 % Normal MONO% 8.4 LAB L100.2400 0-5 % Normal EO% 1.6 LAB L100.2500 0-1 % Normal BASO% 0.2 LAB L100.2550 0.0-0.9 % Normal IM GRAN % 0.200 Result Comment: IG% - Immature Granulocytes (promyelocytes, myelocytes and metamyelocytes) > 1% indicates that a LEFT SHIFT is Present. LAB L100.2620 2.0-7.7 X10 3/uL Normal Absolute Neut 4.7 LAB L100.2720 0.83-4.51 X10 3/ul Normal Absolute Lymph 1.12 Performed By: #### L100.0100 #### [facility] [address] [place], [address] COMPREHENSIVE METABOLIC Collected: 07/17/2017 Status: F [facility] REPOSITORY TYPE CODE TESTS RESULT OUT OF RANGE REFERENCE UNITS LAB L501.0100 70-110 mg/dL Normal GLU 84 LAB L501.1000 7-18 mg/dL Normal BUN 15 LAB L501.1100 0.70-1.30 mg/dL Normal 0.87 CREAT,SERUM Result Comment: The validity of the calculated GFR AND GFRAA in patients over 70 years has not been determined. Clinical correlation is essential. LAB L501.1110 >60 mL/min Normal EST GFR 91 Result Comment: Non- GFR Calc LAB L501.1115 >60 mL/min Normal EST GFR - AA 110 Result Comment: GFR Calc LAB L501.1300 10-20 RATIO Normal BUN/CRE 17.3 LAB L501.1500 6.4-8.2 g/dL T Normal PROT 7.5 LAB L501.1800 3.4-5.0 g/dL Normal ALB 3.9 Result Comment: Please note revised Albumin AND Globulin reference range effective 2017. LAB L501.1950 2.2-4.2 g/dL Normal GLOB 3.6 LAB L501.2000 0.9-2.4 RATIO Normal A/G 1.1 LAB L501.2200 8.5-10.1 mg/dL Normal CA 8.6 LAB L501.4100 15-37 U/L Normal AST 15 LAB L501.4305 45-117 U/L Normal ALK P 82 LAB L501.4405 12-78 U/L Normal ALT 29 LAB L501.4600 0.20-1.00 mg/dL Normal T BILI 0.60 LAB L501.5300 136-145 mmol/L Normal NA 138 LAB L501.5600 3.5-5.1 mmol/L Normal K 4.2 LAB L501.5900 98-107 mmol/L Normal CL 101 LAB L501.6100 21.0-32.0 mmol/L Normal CO2 30.0 LAB L501.6200 5-15 Normal GAP 7 Performed By: #### L500.4050, L501.9520 #### [facility] Laboratory [address] [facility] [place], [address] THYROID STIM HORMONE Collected: 07/17/2017 Status: F Source: KAREN (TSH) 12:24 PM [facility] REPOSITORY TYPE CODE TESTS RESULT OUT OF RANGE REFERENCE UNITS LAB L501.9520 0.358-3.74 uIU/mL Normal TSH 1.49 Performed By: #### L500.4050, L501.9520 #### [facility] Laboratory [address] [place], [address] PSA,TOTAL - ANNUAL Collected: 07/10/2017 Status: F Source: KAREN SCREEN 2:22 PM [facility] REPOSITORY TYPE CODE TESTS RESULT OUT OF RANGE REFERENCE UNITS LAB L501.9910 0.00-4.00 ng/mL Normal PSA,TOT 1.02 SCREEN Result Comment: This test was performed using the TPSA assay method for the [employer] chemistry system. Values obtained with different assay methods cannot be used interchangably. When changing PSA assays in the course of monitoring a patient, additional sequential testing should be carried out to confirm baseline values. Performed By: #### L501.9910 #### [facility] Laboratory [address] [place], [address] CERV SPINE 2 OR 3 Observed: 06/26/2017 Status: F Source: KAREN VIEWS 5:24 PM [facility] REPOSITORY [facility] Imaging Services [address] [place] [address] Cerv Spine 2 or 3 Views MR#: [id number] Acct: [id number] Name: EMY PERAZA Rep #: [id number] : 1940 M 77 From: Ying Mar MD PCP: Nolberto DESAI,Nas [facility] Status: REG CLI Study: Cerv Spine 2 or 3 Views Date of Exam: 06/26/17 Exam# [id number] Ordering Dr: Nas Arvizu MD STUDY: X-RAY - CERVICAL SPINE REASON FOR EXAM: Male, 77 years old. /Shoulder pain. TECHNIQUE: 3 view(s) of the cervical spine were obtained. COMPARISON: None FINDINGS: There are degenerative changes of the anterior atlantoaxial articulation. Normal odontoid process. Normal cervical lordosis. There is multi-level endplate spondylosis. There is multi-level degenerative disc disease with multilevel disc space narrowing. The soft tissue structures are unremarkable. RAD/Cerv Spine 2 or 3 Views IMPRESSION: Degenerative changes. Electronically Signed: Ying Mar MD at 18:36 EST Tel , Service support , CC: Nas Arvizu MD Doll Wig Maker: Signed KNEE 4 OR MORE Observed: 06/26/2017 Status: F Source: [place] VIEWS 5:24 PM [facility] REPOSITORY [facility] Imaging Services [address] [place] [address] Knee 4 or More Views MR#: [id number] Acct: [id number] Name: EMY PERAZA Rep #: [id number] : 1940 M 77 From: Svetlana Son MD PCP: Nas Arvizu MD, Chi Status: REG CLI Study: Knee 4 or More Views Date of Exam: 06/26/17 Exam# [id number] Ordering Dr: Nas Arvizu MD STUDY: X-RAY - LEFT KNEE REASON FOR EXAM: Male, 77 years old. Pain TECHNIQUE: Four view(s) of the knee. COMPARISON: None. FINDINGS: Normal visualized distal femur. Normal visualized proximal tibia and fibula. Normal proximal tibiofibular articulation. Normal medial femorotibial compartment. Normal lateral femorotibial compartment. Normal patellofemoral articulation. There is no fullness above the patella. The soft tissue structures are unremarkable. RAD/Knee 4 or More Views IMPRESSION: No significant abnormalities are seen radiographically in the right knee. Electronically Signed: Svetlana Son MD at 20:37 EST Tel Direct: [phone], Service support , CC: Nas Arvizu MD Doll Wig Maker: Signed SHOULDER MIN 2 VIEWS Observed: 06/26/2017 Status: F Source: [place] 5:24 PM [facility] REPOSITORY [facility] Imaging Services [address] [place], [place] [address] [address] Shoulder min 2 Views MR#: [id number] Acct: [id number] Name: EMY PERAZA Rep #: [id number] : 1940 77 From: Caleb Singh MD PCP: Nas Arvizu MD, Chi Status: REG CLI Study: Shoulder min 2 Views Date of Exam: 06/26/17 Exam# [id number] Ordering Dr: Nas Arvizu MD STUDY: X-RAY - RIGHT SHOULDER REASON FOR EXAM: Male, 77 years old. Right-sided neck and shoulder pain with no known injury. TECHNIQUE: 4 view(s) of the shoulder. COMPARISON: None. FINDINGS: There is generalized osteopenia. There is mild degenerative arthrosis of the glenohumeral articulation. There is degenerative arthrosis of the acromioclavicular joint without inferior osseous spur formation. Normal acromion. Normal humeral head and visualized proximal humerus. The soft tissue structures are unremarkable. Normal visualized pulmonary apex. 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 Electronically Signed: Caleb Singh MD at 16:17 EST , Service support , CC: Nas Arvizu MD Doll Wig Maker: Signed ALLERGIES ALLERGIES DATE TYPE / CODE NAME / CODE REACTION SEVERITY SOURCE 09/27/2017 Drug venom-honey Rash Unknown Karen [facility] Allergy/4160 bee/[id number] Hospital 84332(SNOMED 98(RXNORM) Repository CT) ENCOUNTERS ENCOUNTERS ADMIT/DISCHARGE ACCOUNT ADMITTING ENCOUNTER LOCATION SOURCE NUMBER CLASS 04/17/2018 [id number] Ambulatory [place] 0 [facility] ing:MRI Repository 02/06/2018 [id number] Ambulatory [place] [facility] ing:LAB.FUTUR Repository E 02/06/2018 [id number] Ambulatory Karen [place] 4 [facility] ing:POLAB3 Repository 01/14/2018 [id number] Ambulatory [place] 0 [facility] ing:POLAB3 Repository 10/02/2017 [id number] Ambulatory [place] 6 [facility] ing:RAD Repository 09/27/2017/ [id number] Emergency Karen [place] 8 3 [facility] ing:ED Repository 07/17/2017 [id number] Ambulatory [place] 8 [facility] ing:POLAB3 Repository 07/10/2017 [id number] Ambulatory [place] 6 [facility] ing:LAB Repository 06/26/2017 [id number] Ambulatory [place] 0 [facility] ing:RAD Repository PAYERS PAYERS ENCOUNTER GUARANTOR PAYER SUBSCRIBER SOURCE 04/17/2018 [place] [facility] Primary [place] [facility] Karen [id number] Insurance:[facility]: [address] [place] [address] BPolicy [id number] Hospital [address]Gtr: (330) Number: Repository [phone] ) [id number] Date:2018-04-11 04/17/2018 Secondary [place] [facility] Karen Insurance:PHYSICIAN PETEYSBERGERDOB: Community M[employer]UAL INS COPolicy [id number] Hospital Number: Repository [id number] Date:[id number] [address]KP: 04/17/2018 Tertiary NOT GIVENUNK [place] Insurance:SELF PAY [facility] Number: Effective Repository Date:2018-04-11 02/06/2018 [place] Primary [place] [facility] [place] [id number] Insurance:MEDICARE HUNSBERGERDOB: Community [address] PART A BPolicy [id number] Hospital [address]Ezl: (330) Number: Repository [phone] () [id number] Date:2018-02-06 02/06/2018 Secondary [place] Insurance:PHYSICIAN ALEXISB: Community [employer]UAL INS COPolicy [id number] Hospital Number: Repository [id number] Date:[id number] [address] [address]AF: 02/06/2018 Tertiary NOT GIVENUNK [place] Insurance:SELF PAY [facility] Hospital Number: Effective Repository Date:2018-02-06 02/06/2018 [place] [facility] Primary [place] [facility] Karen [id number] Insurance:MEDICARE HunsbergerDOB: [place] [address] PART [place] olicy [id number] Hospital [address]Qhd: (330) Number: Repository [phone] () [id number] Date:2018-02-06 02/06/2018 Secondary [place] Insurance:PHYSICIAN PeteysbergerDOB: Community M[employer]UAL INS COPolicy [id number] Hospital Number: Repository [id number] Date:4291-17-46BO [address] [address]LS: 02/06/2018 Tertiary NOT GIVENUNK Karen Insurance:SELF PAY [facility] Hospital Number: Effective Repository Date:2018-02-06 01/14/2018 [place] Primary [place] [id number] Insurance:MEDICARE HUNSBERGERDOB: Community [address] PART A BPolicy [id number] Hospital [address]Kwf: (330) Number: Repository [phone] () [id number] Date:2018-01-14 01/14/2018 Secondary [place] H [place] Insurance:PHYSICIAN PETEYSBERGERDOB: Community M[employer]UAL INS COPolicy [id number] Hospital Number: Repository [id number] Date:0507-19-01[address] [place] [address]BS: 01/14/2018 Tertiary NOT GIVENUNK Karen Insurance:SELF PAY [facility] Hospital Number: Effective Repository Date:2018-01-14 10/02/2017 [place] [facility] Primary [place] Karen [id number] Insurance:MEDICARE HunsbergerDOB: [place] [address] olicy [id number] Hospital [address]Uic: (330) Number: Repository [phone] () [id number] Date:2017-10-02 10/02/2017 Secondary [place] H [place] Insurance:PHYSICIAN AlexisB: Community M[employer]UAL INS COPolicy [id number] Hospital Number: Repository [id number] Date:8029-14-56UJ [address] [address]QP: 10/02/2017 Tertiary NOT GIVENUNK Karen Insurance:SELF PAY [facility] Hospital Number: Effective Repository Date:2017-10-02 09/27/2017 [place] [facility] Primary [place] [facility] Karen [id number] Insurance:MEDICARE HunsbergerDOB: Community [address] olicy [id number] Hospital [address]Buy: (330) Number: Repository [phone] () [id number] Date:2017-09-27 09/27/2017 Secondary Que[place] H [place] Insurance:PHYSICIAN HarrisDOB: Community M[employer]UAL INS COPolicy [id number] Hospital Number: Repository [id number] Date:1704-43-72EY [address] [address]UA: 09/27/2017 Tertiary NOT GIVENUNK Karen Insurance:SELF PAY [facility] Hospital Number: Effective Repository Date:2017-09-27 07/17/2017 [place] [facility] Primary [place] [facility] Karen [id number] Insurance:MEDICARE HunsbergerDOB: Community [address] PART A BPolicy [id number] Hospital [address]Ftm: (330) Number: Repository [phone] () [id number] Date:2017-07-17 07/17/2017 Secondary [place] [facility] Karen Insurance:PHYSICIAN AlexisB: Community [employer] INS COPolicy [id number] Hospital Number: Repository [id number] Date:8219-09-64UO [address] [address]VT: 07/17/2017 Tertiary NOT GIVENUNK [place] Insurance:SELF PAY [facility] Hospital Number: Effective Repository Date:2017-07-17 07/10/2017 [place] [facility] Primary [place] [facility] Karen [id number] Insurance:MEDICARE HunsbergerDOB: [place] [address] PART A BPolicy [id number] Hospital [address]Idy: (330) Number: Repository [phone] () [id number] Date:2017-07-10 07/10/2017 Secondary [place] [facility] Karen Insurance:PHYSICIAN HarrisDOB: Community M[employer]UAL INS COPolicy [id number] Hospital Number: Repository [id number] Date:0147-08-76BO [address] [address]CA: 07/10/2017 Tertiary NOT GIVENUNK [place] Insurance:SELF PAY [facility] Hospital Number: Effective Repository Date:2017-07-10 06/26/2017 [place] [facility] Primary [place] [facility] Karen [id number] Insurance:MEDICARE HunsbergerDOB: [place] [address] PART A BPolicy [id number] Hospital [address]Wvu: (330) Number: Repository [phone] () [id number] Date:2017-06-26 06/26/2017 Secondary Emy Jones Insurance:PHYSICIAN Jimmy: [facility] [place] [id number] Hospital Number: Repository [id number] Date:9651-51-86QN [address] [place] [address]MS: 06/26/2017 Tertiary NOT GIVENNAYELI MarinelliWind[place] Insurance:SELF PAY [facility] Number: Effective Repository Date:2017-06-26
== END ==
PROVIDERS: Family Provider Family Medicine Geriatric Medicine; PCP Family Medicine Geriatric Medicine; Referring Provider Family Medicine Geriatric Medicine; Visit Provider Family Medicine Geriatric Medicine
DX: R10.9 Unspecified abdominal pain (principal); R19.7 Diarrhea, unspecified
CPT/HCPCS: 82274; 83630; 87177; 87209; 87493; 87506

== ENCOUNTER → 2018-04-17 12:14 | Outpatient (CLI) | payer MEDICARE, OTHER, SELFPAY ==
--- NOTE | 2018-04-17 12:26 | MRI_ITS ---
STUDY: MRI BRAIN WITH AND WITHOUT CONTRAST (ATTENTION INTERNAL AUDITORY CANALS - I.A.C.'s) REASON FOR EXAM: Male, 78 years old. LEFT TINNITUS, ASYMMETRIC HEARING LOSS -- sudden left hearing loss gradually returning. TECHNIQUE: Standardized multiplanar fat and water weighted pulse sequences were obtained. 7 ml of Gadavist contrast material was administered intravenously for the contrast portion of the examination. # of Images: 442 COMPARISON: None. FINDINGS: Normal bilateral temporal bones. Normal bilateral internal auditory canals. There is no demonstrated intracanalicular or cisternal vestibular schwannoma (acoustic neuroma). There is no enhancement of the bilateral VIIth or VIIIth cranial nerves. Normal bilateral cochlea, vestibules and semicircular canals. There is mild cerebral atrophy with widening of the extra-axial spaces and ventricular dilatation. Normal white matter tracts of the supratentorial brain. Normal bilateral basal ganglia. Normal thalami. Normal flow voids within the major intracranial circulation suggesting patency by spin echo criteria. Normal venous enhancement. There is no enhancing intra-axial or extra-axial abnormality. There is no extra-axial fluid accumulation. Normal sella turcica, pituitary gland, infundibular stalk, optic chiasm and hypothalamus. Normal tectal plate and pineal gland. Normal midbrain, rebecca and medulla. Normal cerebellum. Normal basal cisterns. No demonstrated orbital abnormality, within the constraints of a routine brain study. Normal visualized paranasal sinuses. Normal calvarium and skull base. Normal visualized soft tissue structures. Normal visualized upper cervical spine. MRI/Brain W/WO Contrast IMPRESSION: Unremarkable unenhanced and enhanced MRI of the bilateral internal auditory canals (I.A.C's). Electronically Signed: Gayla Davis MD at 13:09 EDT Tel , Service support ,
[2018-04-17 12:40] LABS: CREATININE FINGERSTICK 0.8 mg/dL (0.70-1.30); EGFR FINGERSTICK > 60.0000 mL/min (>60)
== END ==
PROVIDERS: Family Provider Family Medicine Geriatric Medicine; PCP Family Medicine Geriatric Medicine; Referring Provider Otolaryngology; Visit Provider Otolaryngology
DX: H93.12 Tinnitus, left ear (principal); H91.92 Unspecified hearing loss, left ear
CPT/HCPCS: 70553; A9585

== ENCOUNTER → 2018-07-18 14:15 | Outpatient (CLI) | payer MEDICARE, OTHER, SELFPAY ==
[2018-07-18 14:42] LABS: Absolute Lymphocyte Count 1.26 X10^3/ul (0.83-4.51); Absolute Neutrophil Count 3.1 X10^3/uL (2.0-7.7); Basophil# 0.02 X10^3/uL; Basophil% 0.4 % (0-1); Eosinophil# 0.13 X10^3/uL; Eosinophils% 2.5 % (0-5); Hemoglobin 14.1 g/dl (13.0-16.5); Lymphocyte # 1.26 X10^3/ul (4.0); Lymphocyte % 24.7 % (19-41); Mean Corp Hgb Conc 32.8 g/gl (32-36); Mean Corpuscular Hgb 31.8 pg (27.0-32.0); Mean Corpuscular Volume 96.8 fL (80-94); Mean Platelet Vol. 9.5 fl (6.2-12.0); Monocyte# 0.61 X10^3/uL; Monocyte% 11.9 % (0-10); Neutrophil # 3.08 X10^3/uL (2.7-7.7); Neutrophil % 60.3 % (47-70); Platelet Count 206 K/mm3 (150-450); RBC Distribution Width CV 12.6 % (11.6-14.6); RBC Distribution Width SD 44.1 fl (35.1-43.9); Red Blood Count 4.44 M/mm3 (4.6-6.2); White Blood Count 5.1 K/mm3 (4.4-11.0)
[2018-07-18 14:43] LABS: POSITIVE COUNT NO; POSITIVE DIFFERENTIAL NO; POSITIVE MORPHOLOGY NO
[2018-07-18 15:16] LABS: Vitamin D,25 Hydroxy 27.2 ng/mL (29.95-100.01)
[2018-07-18 15:19] LABS: ALB/GLOB Ratio 1.1 RATIO (0.9-2.4); AST(SGOT) 18 U/L (15-37); Alanine Aminotransfer ALT/SGPT 21 U/L (16-61); Albumin, Serum 3.7 g/dL (3.2-5.0); Alkaline Phosphatase 102 U/L (45-117); Anion Gap 7 (5-15); BUN 20 mg/dL (7-18); BUN/Creat Ratio 22.1 RATIO (10-20); Calcium,Total 8.1 mg/dL (8.5-10.1); Chloride 105 mmol/L (98-107); Creatinine, Serum 0.91 mg/dL (0.70-1.30); EST Glomerular Filtration Rate 86 mL/min (>60); Est Glom Filt Rate - Afr Amer 104 mL/min (>60); Globulin 3.5 g/dL (2.2-4.2); Glucose 121 mg/dL (74-106); Potassium 4.2 mmol/L (3.5-5.1); Protein, Total 7.2 g/dL (6.4-8.2); Sodium Level 138 mmol/L (136-145); Thyroid Stim Hormone (TSH) 1.65 uIU/mL (0.358-3.74)
--- OUTSIDE RECORDS SUMMARY | 2018-09-22 09:27 | XMS RPT_ITS ---
:1940 Author Organization OHIP Support Name Relationship Address Phone ALEXANDER PERAZA Unavailable [address] + [place] [address] R Unavailable Unavailable Unavailable LAZO, TOM Unavailable [address] + [place] [address] ALEXANDER PERAZA Unavailable [address] + [place] [address] R Unavailable Unavailable Unavailable LAZO, TOM Unavailable [address] + [place] [address] ALEXANDER PERAZA Unavailable [address] + [place] [address] R Unavailable Unavailable Unavailable LAZO, TOM Unavailable [address] + [place] [address] ALEXANDER PERAZA Unavailable [address] + [place] [address] R Unavailable Unavailable Unavailable LAZO, TOM Unavailable [address] + [place] [address] ALEXANDER PERAZA Unavailable [address] + [place] [address] R Unavailable Unavailable Unavailable LAZO, TOM Unavailable [address] + [place] [address] ALEXANDER PERAZA Unavailable [address] + [place] [address] R Unavailable Unavailable Unavailable LAZO, TOM Unavailable [address] + [place] [address] ALEXANDER PERAZA Unavailable [address] + [place] [address] R Unavailable Unavailable Unavailable LAZO, TOM Unavailable [address] + [place] [address] Care Team Providers Name Role Phone Nolberto, [...] Unavailable Nolberto, Nas Chi Primary Care Unavailable Carlyle Riggsin Referring Unavailable Nolberto, Nas Chi Attending Unavailable Nolberto, Nas Chi Referring Unavailable Nolberto, Nas Chi Primary Care Unavailable PROBLEMS PROBLEMS DATE TYPE CONDITION / CODE ATTENDING STATUS SOURCE 01/17/2018 Unknown 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, 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, Community unspecified / Hospital E55.9(ICD-10) Repository 01/17/2018 Unknown R10.32 - Left Jwayyed, Active [place] [facility] pain / Hospital R10.32(ICD-10) Repository PROCEDURES PROCEDURES No Procedure Records FoundRESULTS RESULTS CBC W/DIFF, AUTOMATED Collected: 07/18/2018 Status: F Source: [place] 2:24 PM [facility] REPOSITORY TYPE CODE TESTS RESULT OUT OF RANGE REFERENCE UNITS LAB L100.1000 4.4-11.0 K/mm3 Normal WBC 5.1 LAB L100.1200 4.6-6.2 M/mm3 Low RBC 4.44 LAB L100.1300 13.0-16.5 g/dl Normal HGB 14.1 LAB L100.1400 40-54 % Normal HCT 43.0 LAB L100.1500 80-94 fL High MCV 96.8 LAB L100.1600 27.0-32.0 pg Normal MCH 31.8 LAB L100.1700 32-36 g/gl Normal MCHC 32.8 LAB L100.1810 11.6-14.6 % Normal RDW CV 12.6 LAB L100.1820 35.1-43.9 fl High RDW SD 44.1 LAB L100.1900 150-450 K/mm3 Normal PLT 206 LAB L100.2000 6.2-12.0 fl Normal MPV 9.5 LAB L100.2100 47-70 % Normal NEUT% 60.3 LAB L100.2200 19-41 % Normal LY% 24.7 LAB L100.2300 0-10 % High MONO% 11.9 LAB L100.2400 0-5 % Normal EO% 2.5 LAB L100.2500 0-1 % Normal BASO% 0.4 LAB L100.2550 0.0-0.9 % Normal IM GRAN % 0.200 Result Comment: IG% - Immature Granulocytes (promyelocytes, myelocytes and metamyelocytes) > 1% indicates that a LEFT SHIFT is Present. LAB L100.2620 2.0-7.7 X10 3/uL Normal Absolute Neut 3.1 LAB L100.2720 0.83-4.51 X10 3/ul Normal Absolute Lymph 1.26 Performed By: #### L100.0100 #### [facility] [address] [place], [place], [address] VITAMIN D,25 HYDROXY Collected: 07/18/2018 Status: F Source: [place] 2:24 PM [facility] REPOSITORY TYPE CODE TESTS RESULT OUT OF REFERENCE UNITS RANGE LAB L506.1000 29.95-100.01 ng/mL Low Vitamin D 27.2 25-OH Result Comment: Vitamin D 25(OH) Status Range Deficiency <20 ng/mL (50nmol/L) Insuffciency 20 - 30 ng/mL (50 - 75 nmol/L) Sufficiency 30 - 100 ng/mL (75 - 250 nmol/L) Toxicity >100 ng/mL (>250 nmol/L) Performed By: #### L506.1000 #### [facility] [address] [place], [address] COMPREHENSIVE METABOLIC Collected: 07/18/2018 Status: F Source: [facility] 2:24 PM [facility] REPOSITORY TYPE CODE TESTS RESULT OUT OF RANGE REFERENCE UNITS LAB L501.0100 74-106 mg/dL High GLU 121 Result Comment: Fasting Glucose result from 100 to 125 mg/dL suggests IMPAIRED HOMEOSTASIS per A.D.A. criteria. Please note revised GLUCOSE reference range effective 2017. LAB L501.1000 7-18 mg/dL High BUN 20 LAB L501.1100 0.70-1.30 mg/dL Normal CREAT,SERUM 0.91 Result Comment: The validity of the calculated GFR AND GFRAA in patients over 70 years has not been determined. Clinical correlation is essential. LAB L501.1110 >60 mL/min Normal EST GFR 86 Result Comment: Non- GFR Calc LAB L501.1115 >60 mL/min Normal EST GFR - AA 104 Result Comment: GFR Calc LAB L501.1300 10-20 RATIO High BUN/CRE 22.1 LAB L501.1500 6.4-8.2 g/dL T Normal PROT 7.2 LAB L501.1800 3.2-5.0 g/dL Normal ALB 3.7 LAB L501.1950 2.2-4.2 g/dL Normal GLOB 3.5 LAB L501.2000 0.9-2.4 RATIO Normal A/G 1.1 LAB L501.2200 8.5-10.1 mg/dL Low CA 8.1 LAB L501.4100 15-37 U/L Normal AST 18 LAB L501.4305 45-117 U/L Normal ALK P 102 LAB L501.4405 16-61 U/L Normal ALT 21 LAB L501.4600 0.20-1.00 mg/dL T Normal BILI 0.60 LAB L501.5300 136-145 mmol/L NA Normal 138 LAB L501.5600 3.5-5.1 mmol/L K Normal 4.2 LAB L501.5900 98-107 mmol/L CL Normal 105 LAB L501.6100 21.0-32.0 mmol/L Normal CO2 26.0 LAB L501.6200 5-15 Normal GAP 7 Performed By: #### L500.4050, L501.9520 #### [facility] [address] [place], [place], [address] THYROID STIM HORMONE Collected: 07/18/2018 Status: F Source: [place] (TSH) 2:24 PM [facility] REPOSITORY TYPE CODE TESTS RESULT OUT OF RANGE REFERENCE UNITS LAB L501.9520 0.358-3.74 uIU/mL Normal TSH 1.65 Performed By: #### L500.4050, L501.9520 #### [facility] [address] [place], [place], [address] CREATININE FINGERSTICK Collected: 04/17/2018 Status: F Source: [place] 12:30 PM [facility] REPOSITORY TYPE CODE TESTS RESULT OUT OF RANGE REFERENCE UNITS LAB L9100.0210 0.70-1.30 mg/dL Normal CREATININE WB 0.8 LAB L9100.0220 >60 mL/min EGFR WB Normal > 60.0000 Performed By: #### L9100.0200 #### [facility] Point of Care [address] [place] [address] BRAIN W/WO CONTRAST Observed: 04/17/2018 Status: F Source: [place] 12:26 PM [facility] REPOSITORY [facility] Imaging Services [address] [place] [address] Brain W/WO Contrast MR#: [id number] Acct: [id number] Name: EMY PERAZA Rep #: [id number] : 1940 M 78 From: Gayla Davis PCP: Nolberto DESAI,XGIMI [facility] Status: REG CLI Study: Brain W/WO Contrast Date of Exam: 04/17/18 Exam# [id number] Ordering Dr: Samy Riggs MD STUDY: MRI [...] CC: Samy Riggs MD; Nas Arvizu MD Web Design Specialist: Signed CBC W/DIFF, AUTOMATED Collected: 02/06/2018 Status: F Source: [place] 12:09 PM [facility] REPOSITORY TYPE CODE TESTS RESULT OUT OF [...] LYMPHS SEEN. Performed By: #### L100.0100 #### [facility] [address] [place], [place], [address] COMPREHENSIVE METABOLIC Collected: 02/06/2018 Status: F Source: [facility] 12:09 PM [facility] REPOSITORY TYPE CODE TESTS RESULT OUT OF [...] Performed By: #### L500.4050, L501.2400, L501.2450 #### [facility] [address] [facility] [place], [place], [address] AMYLASE Collected: 02/06/2018 Status: F Source: [place] 12:09 PM [facility] REPOSITORY TYPE CODE TESTS RESULT OUT OF RANGE REFERENCE UNITS LAB L501.2400 25-115 U/L Normal NITHYA 48 Performed By: #### L500.4050, L501.2400, L501.2450 #### [facility] [address] [place], [place], [address] LIPASE Collected: 02/06/2018 Status: F Source: [place] 12:09 PM [facility] REPOSITORY TYPE CODE TESTS RESULT OUT OF RANGE REFERENCE UNITS LAB L501.2450 73-393 U/L Normal LIPASE 94 Performed By: #### L500.4050, L501.2400, L501.2450 #### [facility] [address] [place], [address] Observed: 02/06/2018 Status: F Source: [place] STOOL OCCULT BLOOD 12:00 AM [facility] IFOB REPOSITORY STOB iFOB Occult Blood Positive ORGANISM 1: OCCULT BLOOD POSITIVE Performed By: #### M100.7900, M100.0605, M100.6796, M100.637 #### [facility] [address] [place], [address] STOOL Observed: 02/06/2018 Status: F Source: [place] LACTOFERRIN/WBC 12:00 AM [facility] REPOSITORY Stool Lacto/WBC Normal Reference Range = Negative Fecal WBC Lactoferrin Positive: Fecal WBC Lactoferrin present Performed By: #### M100.7900, M100.0605, M100.6796, M100.637 #### [facility] [address] [place], [address] Observed: 02/06/2018 Status: F Source: [place] CDIFF (MOLECULAR) 12:00 AM [facility] REPOSITORY Cdiff-Molecular Normal Reference Range = Negative C. Diff DNA Negative- No toxigenic C. Diff DNA Detected NAAT METHOD Testing was performed using nucleic acid amplification Performed By: #### M100.7900, M100.0605, M100.6796, M100.637 #### [facility] [address] [place], [address] Observed: 02/06/2018 Status: F Source: [place] ENTERIC PATHOGEN 12:00 AM [facility] PANEL STOOL REPOSITORY EP PANEL STOOL Normal Reference Range = Not [...] RESULTS CALLED TO /NURSE LINE 02/07/18 1011 Danwa Man. Copy of report sent to Infection Control Printer MS#[id number] 02/07/18 1011 KEENAN. CAMPYLOBACTER Campylobacter sp. Detected Salmonella Not Detected Shigella sp. Not Detected Shiga Toxin Not Detected Yersinia Not Detected VIBRIO Not Detected Norovirus Not Detected Rotavirus Not Detected ORGANISM 1: Campylobacter species Performed By: #### M100.7900, M100.0605, M100.6796, M100.637 #### [facility] [address] [place], [address] Observed: 02/06/2018 Status: F Source: [place] OVA AND PARASITES 12:00 AM [facility] REPOSITORY O + P OVA AND PARASITES EXAM, ROUTINE These results were obtained using wet preparation(s) and trichrome stained smear. This test does not include testing for Crytosporidium parvum, Cyclospora, or Microsporidia. TESTING PERFORMED AT [facility]. ORIGINAL REPORT ON FILE IN LAB CONTAINS ADDITIONAL TEST SITE INFORMATION. Ova/Parasite Exam NO OVA, CYSTS, OR PARASITES FOUND. Performed By: #### M600.5000 #### [facility] [address] [place] [address] [place], [address] VITAMIN D,25 HYDROXY Collected: 01/14/2018 Status: F Source: [place] 3:49 PM [facility] REPOSITORY TYPE CODE TESTS RESULT OUT OF REFERENCE UNITS RANGE LAB L506.1000 29.95-100.01 ng/mL Low Vitamin D 20.7 25-OH Result Comment: Vitamin D 25(OH) Status Range Deficiency <20 ng/mL (50nmol/L) Insuffciency 20 - 30 ng/mL (50 - 75 nmol/L) Sufficiency 30 - 100 ng/mL (75 - 250 nmol/L) Toxicity >100 ng/mL (>250 nmol/L) Performed By: #### L506.1000 #### [facility] [address] [place] [address]. [place], [address] COMPREHENSIVE METABOLIC Collected: 01/14/2018 Status: F Source: [place] PROFIL 3:49 PM [facility] REPOSITORY TYPE CODE TESTS RESULT OUT OF [...] 7 Performed By: #### L500.4050, L501.9520 #### [facility] [address] [place], [address] THYROID STIM HORMONE Collected: 01/14/2018 Status: F Source: [place] (TSH) 3:49 PM [facility] REPOSITORY TYPE CODE TESTS RESULT OUT OF RANGE REFERENCE UNITS LAB L501.9520 0.358-3.74 uIU/mL Normal TSH 1.69 Performed By: #### L500.4050, L501.9520 #### [facility] [address] [place], [address] CBC W/DIFF, AUTOMATED Collected: 01/14/2018 Status: F Source: [place] 3:49 PM [facility] REPOSITORY TYPE CODE TESTS RESULT OUT OF [...] Lymph 1.20 Performed By: #### L100.0100 #### [facility] [address] [place], [address] LUMBAR SPINE 2 OR 3 Observed: 10/02/2017 Status: F Source: [place] VIEWS 5:01 PM [facility] REPOSITORY [facility] Imaging Services [address] [place] [address] Lumbar Spine 2 or 3 Views MR#: [id number] Acct: [id number] Name: EMY PERAZA Rep #: [id number] : 1940 M 77 From: Sonali Fischer MD PCP: Nas Arvizu MD, Chi Status: REG CLI Study: Lumbar Spine 2 or 3 Views Date of Exam: 10/02/17 Exam# [id number] Ordering Dr: Nas Arvizu MD XR Spine [...] Service support , CC: Nas Arvizu MD Web Design Specialist: Signed 12 LEAD ELECTROCARDIOGRAM Observed: 10/01/2017 Status: F Source: [place] 1:14 PM [facility] REPOSITORY [facility] Cardiovascular Services [address] [place] [address] 12 Lead EKG 09/27/17 0844 MR#: [id number] Acct: [id number] Name: EMY PERAZA Rep #: [id number] : 1940 77 From: Xander Mast MD [...] Low voltage QRS Borderline ECG Confirmed by JUN DESAI, XANDER ([id number]), editor magazine SONALI SORENSEN (56) on 10/01/2017 1:14:06 PM Referred By: RADHA Confirmed By:XANDER MAST MD 10/01/17 1314 Date Xander Mast MD CC: MD Demetris Kramer; Nas Arvizu MD Signed EMERGENCY DEPARTMENT Observed: 09/27/2017 Status: F Source: [place] SUMMARY 5:01 PM [facility] REPOSITORY [facility] Medical Records Department [address] [place] [address] Emergency Department Summary 09/27/17 0843 MR#: [id number] Acct: [id number] Name: EMY PERAZA Rep #: [id number] : 1940 77 From: Adelaida Kramer MD [...] antibiotic use This note was generated with MaxCDN dictation software. It may contain incorrect words, [...] your Primary Care Provider. Call [facility] ([phone]) or report to the closest Emergency Room. Call 911 if necessary. 09/27/17 7951 <Electronically signed by Adelaida Kramer MD> Date Adelaida Kramer MD Cosigner Signature (If Indicated): Date CC: Nas Arvizu MD DISCHARGE INSTRUCTION Observed: 09/27/2017 Status: F Source: [place] 1:00 PM [facility] REPOSITORY [facility] Medical Records Department [address] [place] [address] [place] [address] Discharge Instruction 09/27/17 1259 MR#: [id number] Acct: [id number] Name: EMY PERAZA Rep #: [id number] : 1940 77 From: Adelaida Kramer MD [...] your Primary Care Provider. Call [facility] ([phone]) or report to the closest Emergency Room. Call 911 if necessary. 09/27/17 1300 <Electronically signed by Adelaida Kramer MD> Date Adelaida Kramer MD Cosigner Signature (If Indicated): Date CC: Nas Arvizu MD DISCHARGE INSTRUCTION Observed: 09/27/2017 Status: F Source: [place] 12:57 PM [facility] REPOSITORY [facility] Medical Records Department [address] [place] [address] Discharge Instruction 09/27/17 1257 MR#: [id number] Acct: [id number] Name: EMY PERAZA Rep #: [id number] : 1940 77 From: Adelaida Kramer MD [...] your Primary Care Provider. Call [facility] ([phone]) or report to the closest Emergency Room. Call 911 if necessary. 09/27/17 1257 <Electronically signed by Adelaida Kramer MD> Date Adelaida Kramer MD Cosigner Signature (If Indicated): Date CC: Nas Arvizu MD CBC W/DIFF, AUTOMATED Collected: 09/27/2017 Status: F Source: [place] 9:40 AM [facility] REPOSITORY TYPE CODE TESTS RESULT OUT OF [...] NORM C+C Performed By: #### L100.0100 #### [facility] [address] [place], [address] BASIC METABOLIC Collected: 09/27/2017 Status: F Source: [place] PROFILE ([facility]) 9:40 AM [facility] REPOSITORY Order Comment: 'TROP' Serial specimen #1, [...] By: #### L500.2500, L500.3400, L501.2450, L501.4010 #### [facility] [address] [place], [address] LIVER PROFILE Collected: 09/27/2017 Status: F Source: [place] 9:40 AM [facility] REPOSITORY Order Comment: 'TROP' Serial specimen #1, [...] By: #### L500.2500, L500.3400, L501.2450, L501.4010 #### [facility] [address] [place], [address] LIPASE Collected: 09/27/2017 Status: F Source: [place] 9:40 AM [facility] REPOSITORY Order Comment: 'TROP' Serial specimen #1, #2, #3, or #4: 1 TYPE CODE TESTS RESULT OUT OF RANGE REFERENCE UNITS LAB L501.2450 73-393 U/L Normal LIPASE 106 Performed By: #### L500.2500, L500.3400, L501.2450, L501.4010 #### [facility] [address] [place], [address] TROPONIN-I Collected: 09/27/2017 Status: F Source: [place] 9:40 AM [facility] REPOSITORY Order Comment: 'TROP' Serial specimen #1, #2, #3, or #4: 1 TYPE CODE TESTS RESULT OUT OF RANGE REFERENCE UNITS LAB L501.4010 <0.06 ng/mL Normal < 0.02 TROPONIN-I Result Comment: TROPONIN-I EXPECTED VALUES <0.05 NEGATIVE 0.06 - 0.59 AT RISK OF HI > OR = 0.60 SUGGEST HI Performed By: #### L500.2500, L500.3400, L501.2450, L501.4010 #### [facility] [address] [place], [address] ABDOMEN/PELVIS WITHOUT Observed: 09/27/2017 Status: F Source: [place] CONT 8:42 AM [facility] REPOSITORY [facility] Imaging Services [address] [place] [address] Abdomen/Pelvis without Cont MR#: [id number] Acct: [id number] Name: EMY PERAZA Rep #: [id number] : 1940 M 77 From: Lemuel Ron MD PCP: Nolberto DESAI,[employer] Status: REG ER Study: Abdomen/Pelvis without Cont Date of Exam: 09/27/17 Exam# [id number] Ordering Dr: Adelaida Kramer MD STUDY: CT [...] CC: MD Demetris Kramer; Nas Arvizu MD Web Design Specialist: Signed ALLERGIES ALLERGIES DATE TYPE / CODE NAME / CODE REACTION SEVERITY SOURCE 09/27/2017 Drug venom-honey Rash Unknown [facility] [facility] Allergy/4160 bee/[id number] Hospital 10362(SNOMED 98(RXNORM) Repository CT) ENCOUNTERS ENCOUNTERS ADMIT/DISCHARGE ACCOUNT ADMITTING ENCOUNTER LOCATION SOURCE NUMBER CLASS 07/18/2018 [id number] Ambulatory [place] 2 [facility] ing:POLAB3 Repository 04/17/2018 [id number] Ambulatory [place] 0 [facility] ing:MRI Repository 02/06/2018 [id number] Ambulatory [place] 7 [facility] ing:LAB.FUTUR Repository E 02/06/2018 [id number] Ambulatory [place] 4 [facility] ing:POLAB3 Repository 01/14/2018 [id number] Ambulatory [place] 0 [facility] ing:POLAB3 Repository 10/02/2017 [id number] Ambulatory [place] 6 [facility] ing:RAD Repository 09/27/2017/ [id number] Emergency [place] 8 3 [facility] ing:ED Repository PAYERS PAYERS ENCOUNTER GUARANTOR PAYER SUBSCRIBER SOURCE 07/18/2018 [facility] Primary [facility] [place] [id number] Insurance:MEDICARE PETEYSBERGERDOB: Community [address] [id number] [facility] [address]Xvr: (330) Number: Repository [phone] () [id number] Date:2018-07-18 07/18/2018 Secondary [facility] [place] Insurance:PHYSICIAN STUDOB: Community MUTUAL INS COPolicy [id number] Hospital Number: Repository [id number] Date:2313-37-[address] [address]IT: 07/18/2018 Tertiary NOT GIVENUNK [place] Insurance:SELF PAY [facility]: Effective Repository Date:2018-07-18 04/17/2018 [facility] H Primary [facility] [place] [id number] Insurance:MEDICARE PETEYSBERGERDOB: [facility] [address] [address] [place] [id number] [facility] [address]Gby: (330) Number: Repository [phone] () [id number] Date:2018-04-11 04/17/2018 Secondary [facility] H [place] Insurance:PHYSICIAN ALEXISB: Community MUTUAL INS COPolicy [id number] Hospital Number: Repository [id number] Date:4670-08-85NQ[address] [address]RS: 04/17/2018 Tertiary NOT GIVENUNK [place] Insurance:SELF PAY [facility] Hospital Number: Effective Repository Date:2018-04-11 02/06/2018 [place] H Primary [facility] [place] [id number] Insurance:MEDICARE PETEYSBERGERDOB: Community [address] [id number] Hospital [address]Ehz: (330) Number: Repository [phone] () [id number] Date:2018-02-06 02/06/2018 Secondary [place] H [place] Insurance:PHYSICIAN STUDOB: Community MUTUAL INS COPolicy [id number] Hospital Number: Repository [id number] Date:[id number] [address]GM: 02/06/2018 Tertiary NOT GIVENUNK [place] Insurance:SELF PAY [facility] Number: Effective Repository Date:2018-02-06 02/06/2018 [facility] Primary [facility] [place] [id number] Insurance:MEDICARE HunsbergerDOB: [place] [address] [id number] Hospital [address]Oaz: (330) Number: Repository [phone] () [id number] Date:2018-02-06 02/06/2018 Secondary [facility] [place] Insurance:PHYSICIAN AlexisB: Community MUTUAL INS COPolicy [id number] Hospital Number: Repository [id number] Date:2426-28-49[address] [address]YB: 02/06/2018 Tertiary NOT GIVENUNK [place] Insurance:SELF PAY [facility] Number: Effective Repository Date:2018-02-06 01/14/2018 [place] [facility] Primary [facility] [place] [id number] Insurance:MEDICARE HUNSBERGERDOB: Community [address] [id number] Hospital [address]Fzl: (330) Number: Repository [phone] () [id number] Date:2018-01-14 01/14/2018 Secondary [place] H [place] Insurance:PHYSICIAN ALEXISB: Community MUTUAL INS COPolicy [id number] Hospital Number: Repository [id number] Date:2590-11-30TZ[address] [address]LB: 01/14/2018 Tertiary NOT GIVENUNK [place] Insurance:SELF PAY [facility] Number: Effective Repository Date:2018-01-14 10/02/2017 [facility] Primary [facility] [place] [id number] Insurance:MEDICARE PeteysbergerDOB: [place] [address] [facility] [id number] Hospital [address]Egp: (330) Number: Repository [phone] () [id number] Date:2017-10-02 10/02/2017 Secondary [facility] H [place] Insurance:PHYSICIAN AlexisB: Community MUTUAL INS COPolicy [id number] Hospital Number: Repository [id number] Date:3349-97-08HX [address] [place] [address]ZG: 10/02/2017 Tertiary NOT GIVENUNK [place] Insurance:SELF PAY [facility] Number: Effective Repository Date:2017-10-02 09/27/2017 [facility] Primary [facility] [place] [id number] Insurance:MEDICARE AlexisB: [address], [place] [facility] [id number] Hospital [address]Xve: (330) Number: Repository [phone] () [id number] Date:2017-09-27 09/27/2017 Secondary [facility] [place] Insurance:PHYSICIAN AlexisB: Community MUTUAL INS COPolicy [id number] Hospital Number: Repository [id number] Date:6529-01-05EE [address] [place] [address]FR: 09/27/2017 Tertiary NOT GIVENUNK [place] Insurance:SELF PAY [facility] Number: Effective Repository Date:2017-09-27
== END ==
PROVIDERS: Family Provider Family Medicine Geriatric Medicine; PCP Family Medicine Geriatric Medicine; Visit Provider Family Medicine Geriatric Medicine
DX: E55.9 Vitamin D deficiency, unspecified (principal); R53.83 Other fatigue
CPT/HCPCS: 36415; 80053; 82306; 84443; 85025

== ENCOUNTER → 2019-01-16 14:21 | Outpatient (CLI) | payer MEDICARE, OTHER, SELFPAY ==
[2019-01-16 17:15] LABS: Absolute Lymphocyte Count 0.98 X10^3/uL (0.83-4.51); Absolute Neutrophil Count 4.7 X10^3/uL (2.0-7.7); Basophil# 0.02 X10^3/uL; Basophil% 0.3 % (0-1); Eosinophil# 0.17 X10^3/uL; Eosinophils% 2.6 % (0-5); Hematocrit 39.5 % (40-54); Hemoglobin 13.2 g/dL (13.0-16.5); Lymphocyte # 0.98 X10^3/ul (4.0); Lymphocyte % 15.2 % (19-41); Mean Corp Hgb Conc 33.4 g/dL (32-36); Mean Corpuscular Hgb 32.8 pg (27.0-32.0); Mean Platelet Vol. 9.7 fl (6.2-12.0); Monocyte# 0.55 X10^3/uL; Monocyte% 8.5 % (0-10); NRBC Flagged by Analyzer 0 % (0-5); Neutrophil # 4.72 X10^3/uL (2.7-7.7); Neutrophil % 73.1 % (47-70); Platelet Count 195 K/mm3 (150-450); RBC Distribution Width CV 13.3 % (11.6-14.6); RBC Distribution Width SD 48.3 fl (35.1-43.9); Red Blood Count 4.03 M/mm3 (4.6-6.2); White Blood Count 6.5 K/mm3 (4.4-11.0)
[2019-01-16 17:41] LABS: AST(SGOT) 13 U/L (15-37); Alanine Aminotransfer ALT/SGPT 19 U/L (16-61); Albumin, Serum 3.4 g/dL (3.2-5.0); Alkaline Phosphatase 81 U/L (45-117); Anion Gap 5 (5-15); BUN 17 mg/dL (7-18); BUN/Creat Ratio 17.1 RATIO (10-20); Calcium,Total 8.7 mg/dL (8.5-10.1); Chloride 106 mmol/L (98-107); Creatinine, Serum 0.99 mg/dL (0.70-1.30); EST Glomerular Filtration Rate 78 mL/min (>60); Est Glom Filt Rate - Afr Amer 94 mL/min (>60); Globulin 3.4 g/dL (2.2-4.2); Glucose 122 mg/dL (74-106); Potassium 3.9 mmol/L (3.5-5.1); Protein, Total 6.8 g/dL (6.4-8.2); Sodium Level 139 mmol/L (136-145); Thyroid Stim Hormone (TSH) 0.96 uIU/mL (0.358-3.74)
[2019-01-16 17:44] LABS: Vitamin D,25 Hydroxy 28.4 ng/mL (29.95-100.01)
== END ==
PROVIDERS: Family Provider Family Medicine Geriatric Medicine; PCP Family Medicine Geriatric Medicine; Visit Provider Family Medicine Geriatric Medicine
DX: R53.83 Other fatigue (principal); E55.9 Vitamin D deficiency, unspecified
CPT/HCPCS: 36415; 80053; 82306; 84443; 85025

== ENCOUNTER → 2019-07-22 12:01 | Outpatient (CLI) | payer MEDICARE, OTHER, SELFPAY ==
[2019-07-22 12:38] LABS: Absolute Lymphocyte Count 1.11 X10^3/uL (0.83-4.51); Absolute Neutrophil Count 3.3 X10^3/uL (2.0-7.7); Basophil# 0.01 X10^3/uL; Basophil% 0.2 % (0-1); Eosinophil# 0.01 X10^3/uL; Eosinophils% 0.2 % (0-5); Hematocrit 42.4 % (40-54); Hemoglobin 14.3 g/dL (13.0-16.5); Lymphocyte # 1.11 X10^3/ul (4.0); Lymphocyte % 22.7 % (19-41); Mean Corp Hgb Conc 33.7 g/dL (32-36); Mean Corpuscular Hgb 32.6 pg (27.0-32.0); Mean Corpuscular Volume 96.8 fL (80-94); Mean Platelet Vol. 10.1 fl (6.2-12.0); Monocyte# 0.45 X10^3/uL; Monocyte% 9.2 % (0-10); NRBC Flagged by Analyzer 0 % (0-5); Neutrophil % 67.5 % (47-70); Platelet Count 214 K/mm3 (150-450); RBC Distribution Width CV 12.3 % (11.6-14.6); Red Blood Count 4.38 M/mm3 (4.6-6.2); White Blood Count 4.9 K/mm3 (4.4-11.0)
[2019-07-22 13:00] LABS: ALB/GLOB Ratio 1.1 RATIO (0.9-2.4); AST(SGOT) 16 U/L (15-37); Alanine Aminotransfer ALT/SGPT 23 U/L (16-61); Albumin, Serum 3.8 g/dL (3.2-5.0); Alkaline Phosphatase 98 U/L (45-117); Anion Gap 2 (5-15); BUN 16 mg/dL (7-18); BUN/Creat Ratio 16.3 RATIO (10-20); Calcium,Total 8.7 mg/dL (8.5-10.1); Chloride 107 mmol/L (98-107); Creatinine, Serum 0.98 mg/dL (0.70-1.30); EST Glomerular Filtration Rate 78 mL/min (>60); Est Glom Filt Rate - Afr Amer 95 mL/min (>60); Globulin 3.5 g/dL (2.2-4.2); Glucose 86 mg/dL (74-106); Potassium 3.9 mmol/L (3.5-5.1); Protein, Total 7.3 g/dL (6.4-8.2); Sodium Level 137 mmol/L (136-145); Thyroid Stim Hormone (TSH) 2.38 uIU/mL (0.358-3.74)
[2019-07-22 13:02] LABS: Vitamin D,25 Hydroxy 21.9 ng/mL (29.95-100.01)
== END ==
PROVIDERS: PCP Family Medicine Geriatric Medicine; Visit Provider Family Medicine Geriatric Medicine
DX: I10 Essential (primary) hypertension (principal); E55.9 Vitamin D deficiency, unspecified
CPT/HCPCS: 36415; 80053; 82306; 84443; 85025

== ENCOUNTER → 2020-01-27 12:05 | Outpatient (CLI) | payer MEDICARE, OTHER, SELFPAY ==
[2020-01-27 12:34] LABS: Absolute Lymphocyte Count 1.03 X10^3/uL (0.83-4.51); Absolute Neutrophil Count 3.3 X10^3/uL (2.0-7.7); Basophil# 0.01 X10^3/uL; Basophil% 0.2 % (0-1); Eosinophil# 0.01 X10^3/uL; Eosinophils% 0.2 % (0-5); Hematocrit 40.8 % (40-54); Hemoglobin 13.4 g/dL (13.0-16.5); Lymphocyte # 1.03 X10^3/ul (4.0); Lymphocyte % 20.8 % (19-41); Mean Corp Hgb Conc 32.8 g/dL (32-36); Mean Corpuscular Hgb 32.7 pg (27.0-32.0); Mean Corpuscular Volume 99.5 fL (80-94); Mean Platelet Vol. 9.9 fl (6.2-12.0); Monocyte# 0.57 X10^3/uL; Monocyte% 11.5 % (0-10); NRBC Flagged by Analyzer 0 % (0-5); Neutrophil # 3.33 X10^3/uL (2.7-7.7); Neutrophil % 67.1 % (47-70); Platelet Count 211 K/mm3 (150-450); RBC Distribution Width CV 12.6 % (11.6-14.6); RBC Distribution Width SD 45.4 fl (35.1-43.9)
[2020-01-27 12:47] LABS: Vitamin D,25 Hydroxy 45.1 ng/mL
[2020-01-27 12:51] LABS: ALB/GLOB Ratio 1.1 RATIO (0.9-2.4); AST(SGOT) 16 U/L (15-37); Alanine Aminotransfer ALT/SGPT 20 U/L (16-61); Albumin, Serum 3.7 g/dL (3.2-5.0); Alkaline Phosphatase 88 U/L (45-117); Anion Gap 3 (5-15); BUN 17 mg/dL (7-18); BUN/Creat Ratio 18.1 RATIO (10-20); Calcium,Total 8.4 mg/dL (8.5-10.1); Chloride 106 mmol/L (98-107); Creatinine, Serum 0.94 mg/dL (0.70-1.30); EST Glomerular Filtration Rate 82 mL/min (>60); Est Glom Filt Rate - Afr Amer 99 mL/min (>60); Globulin 3.5 g/dL (2.2-4.2); Glucose 83 mg/dL (74-106); Potassium 4.2 mmol/L (3.5-5.1); Protein, Total 7.2 g/dL (6.4-8.2); Sodium Level 138 mmol/L (136-145)
== END ==
PROVIDERS: PCP Family Medicine Geriatric Medicine; Visit Provider Family Medicine Geriatric Medicine
DX: E55.9 Vitamin D deficiency, unspecified (principal); R53.83 Other fatigue
CPT/HCPCS: 36415; 80053; 82306; 84443; 85025

== ENCOUNTER → 2020-03-01 14:56 | Outpatient (CLI) | payer MEDICARE, OTHER, SELFPAY ==
--- NOTE | 2020-03-01 15:18 | CT_ITS ---
STUDY: CT ABDOMEN AND PELVIS WITH CONTRAST REASON FOR EXAM: Male, 80 years old. ABD PAIN/BLOATING RADIATION DOSAGE (If Supplied By Facility): CTDIvol = ( 11.36 ) mGy, DLP = ( 472.10 ) mGycm TECHNIQUE: Transaxial images were obtained from the dome of the diaphragm to the symphysis pubis without oral contrast. Oral and amp; IV Gastrografin and amp; 100mL Isovue-300 was administered. Sagittal and coronal images were reconstructed. Individualized dose optimization techniques were used for this CT. COMPARISON: 09/27/2017 FINDINGS: There is minor atelectasis within the dependent portion lungs.. The visualized portions of the heart are within normal limits. Normal liver. Gallbladder not visualized which may be consistent with prior cholecystectomy. Normal spleen. Normal pancreas. Normal bilateral adrenal glands. Right kidney is normal. Mild left renal pelvocaliectasis and possible parapelvic cysts. Tiny cyst within the upper pole Normal visualized stomach. There is mild focal small bowel ileus with submucosal thickening in several of the proximal loops consistent with nonspecific enteritis. No evidence for small bowel obstruction. Normal colon. The appendix is visualized and appears normal. Minor atherosclerotic disease of the aorta without evidence for aneurysm. Normal inferior vena cava. Normal retroperitoneum. Incompletely distended thick-walled bladder. Nonspecific prominence of the prostate. Normal abdominal wall. Lumbar spine demonstrates mild spondylosis.. Spondylolisthesis at L4-5. CT/Abdomen/Pelvis WITH Contrast IMPRESSION: Findings consistent with nonspecific enteritis. No evidence for small bowel obstruction. Other findings as above Electronically Signed: Fidencio Sandhu MD at 17:49 EDT , Service support ,
[2020-03-01 15:32] LABS: Absolute Neutrophil Count 4.2 X10^3/uL (2.0-7.7); Basophil# 0.01 X10^3/uL; Basophil% 0.2 % (0-1); Eosinophil# 0.18 X10^3/uL; Hematocrit 42.7 % (40-54); Lymphocyte % 18.4 % (19-41); Mean Corp Hgb Conc 32.8 g/dL (32-36); Mean Corpuscular Hgb 32.3 pg (27.0-32.0); Mean Corpuscular Volume 98.4 fL (80-94); Mean Platelet Vol. 9.6 fl (6.2-12.0); Monocyte# 0.52 X10^3/uL; Monocyte% 8.7 % (0-10); NRBC Flagged by Analyzer 0 % (0-5); Neutrophil # 4.17 X10^3/uL (2.7-7.7); Neutrophil % 69.5 % (47-70); Platelet Count 211 K/mm3 (150-450); RBC Distribution Width CV 12.4 % (11.6-14.6); RBC Distribution Width SD 45.1 fl (35.1-43.9); Red Blood Count 4.34 M/mm3 (4.6-6.2)
[2020-03-01 16:02] LABS: AST(SGOT) 16 U/L (15-37); Alanine Aminotransfer ALT/SGPT 20 U/L (16-61); Albumin, Serum 3.7 g/dL (3.2-5.0); Alkaline Phosphatase 98 U/L (45-117); Anion Gap 3 (5-15); BUN 15 mg/dL (7-18); Calcium,Total 8.3 mg/dL (8.5-10.1); Chloride 105 mmol/L (98-107); Creatinine, Serum 0.94 mg/dL (0.70-1.30); EST Glomerular Filtration Rate 83 mL/min (>60); Est Glom Filt Rate - Afr Amer 100 mL/min (>60); Globulin 3.8 g/dL (2.2-4.2); Glucose 83 mg/dL (74-106); Potassium 3.9 mmol/L (3.5-5.1); Protein, Total 7.5 g/dL (6.4-8.2); Sodium Level 138 mmol/L (136-145)
== END ==
LOC: POLAB3 14:56 → CT 15:22
PROVIDERS: PCP Family Medicine Geriatric Medicine; Referring Provider Family Medicine Geriatric Medicine; Visit Provider Family Medicine Geriatric Medicine
DX: R10.9 Unspecified abdominal pain (principal)
CPT/HCPCS: 36415; 74177; 80053; 85025; Q9967

== ENCOUNTER → 2020-07-27 10:08 | Outpatient (CLI) | payer MEDICARE, OTHER, SELFPAY ==
[2020-07-27 12:14] LABS: Absolute Lymphocyte Count 1.06 X10^3/uL (0.83-4.51); Absolute Neutrophil Count 3.4 X10^3/uL (2.0-7.7); Basophil# 0.01 X10^3/uL; Basophil% 0.2 % (0-1); Hematocrit 41.8 % (40-54); Hemoglobin 13.7 g/dL (13.0-16.5); Lymphocyte # 1.06 X10^3/ul (4.0); Lymphocyte % 20.7 % (19-41); Mean Corp Hgb Conc 32.8 g/dL (32-36); Mean Corpuscular Hgb 32.1 pg (27.0-32.0); Mean Corpuscular Volume 97.9 fL (80-94); Mean Platelet Vol. 9.8 fl (6.2-12.0); Monocyte# 0.61 X10^3/uL; Monocyte% 11.9 % (0-10); NRBC Flagged by Analyzer 0 % (0-5); Neutrophil # 3.42 X10^3/uL (2.7-7.7); Platelet Count 214 K/mm3 (150-450); RBC Distribution Width CV 12.4 % (11.6-14.6); Red Blood Count 4.27 M/mm3 (4.6-6.2); White Blood Count 5.1 K/mm3 (4.4-11.0)
[2020-07-27 12:30] LABS: Vitamin D,25 Hydroxy 35.5 ng/mL
[2020-07-27 12:56] LABS: AST(SGOT) 18 U/L (15-37); Alanine Aminotransfer ALT/SGPT 22 U/L (16-61); Albumin, Serum 3.6 g/dL (3.2-5.0); Alkaline Phosphatase 89 U/L (45-117); Anion Gap 5 (5-15); BUN 19 mg/dL (7-18); Calcium,Total 8.6 mg/dL (8.5-10.1); Chloride 104 mmol/L (98-107); Creatinine, Serum 0.95 mg/dL (0.70-1.30); EST Glomerular Filtration Rate 81 mL/min (>60); Est Glom Filt Rate - Afr Amer 98 mL/min (>60); Globulin 3.7 g/dL (2.2-4.2); Glucose 83 mg/dL (74-106); Potassium 4.2 mmol/L (3.5-5.1); Protein, Total 7.3 g/dL (6.4-8.2); Sodium Level 138 mmol/L (136-145); Thyroid Stim Hormone (TSH) 1.92 uIU/mL (0.358-3.74)
== END ==
PROVIDERS: PCP Family Medicine Geriatric Medicine; Visit Provider Family Medicine Geriatric Medicine
DX: E55.9 Vitamin D deficiency, unspecified (principal); R53.83 Other fatigue
CPT/HCPCS: 36415; 80053; 82306; 84443; 85025

== ENCOUNTER → 2021-01-25 09:47 | Outpatient (CLI) | payer MEDICARE, OTHER, SELFPAY ==
[2021-01-25 12:41] LABS: Absolute Lymphocyte Count 1.17 X10^3/uL (0.83-4.51); Absolute Neutrophil Count 3.8 X10^3/uL (2.0-7.7); Basophil# 0.02 X10^3/uL; Basophil% 0.3 % (0-1); Eosinophil# 0.15 X10^3/uL; Eosinophils% 2.6 % (0-5); Hematocrit 42.7 % (40-54); Hemoglobin 14.1 g/dL (13.0-16.5); Lymphocyte # 1.17 X10^3/ul (0.83-4.51); Lymphocyte % 20.3 % (19-41); Mean Platelet Vol. 9.8 fl (6.2-12.0); Monocyte# 0.54 X10^3/uL; Monocyte% 9.4 % (0-10); NRBC Flagged by Analyzer 0 % (0-5); Neutrophil # 3.84 X10^3/uL (2.7-7.7); Neutrophil % 66.9 % (47-70); Platelet Count 227 K/mm3 (150-450); RBC Distribution Width CV 12.7 % (11.6-14.6); RBC Distribution Width SD 44.9 fl (35.1-43.9); White Blood Count 5.8 K/mm3 (4.4-11.0)
[2021-01-25 13:00] LABS: ALB/GLOB Ratio 1.1 RATIO (0.9-2.4); AST(SGOT) 16 U/L (15-37); Alanine Aminotransfer ALT/SGPT 22 U/L (16-61); Albumin, Serum 3.9 g/dL (3.2-5.0); Alkaline Phosphatase 97 U/L (45-117); Anion Gap 3 (5-15); BUN 17 mg/dL (7-18); BUN/Creat Ratio 19.5 RATIO (10-20); Calcium,Total 8.7 mg/dL (8.5-10.1); Chloride 106 mmol/L (98-107); Creatinine, Serum 0.87 mg/dL (0.70-1.30); EST Glomerular Filtration Rate 89 mL/min (>60); Est Glom Filt Rate - Afr Amer 108 mL/min (>60); Globulin 3.7 g/dL (2.2-4.2); Glucose 86 mg/dL (74-106); Potassium 4.3 mmol/L (3.5-5.1); Protein, Total 7.6 g/dL (6.4-8.2); Sodium Level 138 mmol/L (136-145); Thyroid Stim Hormone (TSH) 1.49 uIU/mL (0.358-3.74)
== END ==
PROVIDERS: PCP Family Medicine Geriatric Medicine; Visit Provider Family Medicine Geriatric Medicine
DX: E55.9 Vitamin D deficiency, unspecified (principal); R53.83 Other fatigue
CPT/HCPCS: 36415; 80053; 82306; 84443; 85025

== ENCOUNTER 2021-08-02 09:28 | Outpatient (CLI) | payer MEDICARE, OTHER, SELFPAY ==
[2021-08-02 12:13] LABS: Absolute Lymphocyte Count 1.23 X10^3/uL (0.83-4.51); Absolute Neutrophil Count 2.9 X10^3/uL (2.0-7.7); Basophil# 0.02 X10^3/uL; Basophil% 0.4 % (0-1); Hematocrit 41.2 % (40-54); Lymphocyte # 1.23 X10^3/ul (0.83-4.51); Lymphocyte % 26.2 % (19-41); Mean Corpuscular Hgb 32.7 pg (27.0-32.0); Mean Corpuscular Volume 96.3 fL (80-94); Mean Platelet Vol. 9.7 fl (6.2-12.0); Monocyte# 0.57 X10^3/uL; Monocyte% 12.2 % (0-10); NRBC Flagged by Analyzer 0 % (0-5); Neutrophil # 2.86 X10^3/uL (2.7-7.7); Platelet Count 217 K/mm3 (150-450); RBC Distribution Width CV 12.5 % (11.6-14.6); RBC Distribution Width SD 44.5 fl (35.1-43.9); Red Blood Count 4.28 M/mm3 (4.6-6.2); White Blood Count 4.7 K/mm3 (4.4-11.0)
[2021-08-02 12:43] LABS: AST(SGOT) 15 U/L (15-37); Alanine Aminotransfer ALT/SGPT 19 U/L (16-61); Albumin, Serum 3.7 g/dL (3.2-5.0); Alkaline Phosphatase 101 U/L (45-117); Anion Gap 3 (5-15); BUN 19 mg/dL (7-18); BUN/Creat Ratio 20.3 RATIO (10-20); Calcium,Total 8.5 mg/dL (8.5-10.1); Chloride 105 mmol/L (98-107); Creatinine, Serum 0.94 mg/dL (0.70-1.30); EST Glomerular Filtration Rate 83 mL/min (>60); Est Glom Filt Rate - Afr Amer 100 mL/min (>60); Globulin 3.6 g/dL (2.2-4.2); Glucose 89 mg/dL (74-106); Potassium 4.3 mmol/L (3.5-5.1); Protein, Total 7.3 g/dL (6.4-8.2); Sodium Level 138 mmol/L (136-145); Thyroid Stim Hormone (TSH) 1.67 uIU/mL (0.358-3.74); Vitamin D,25 Hydroxy 45.6 ng/mL
== END 2021-08-02 23:59 | disposition short-term general hospital (02) ==
LOC: POLAB3 09:31
PROVIDERS: PCP Family Medicine Geriatric Medicine; Visit Provider Family Medicine Geriatric Medicine
DX: E55.9 Vitamin D deficiency, unspecified (principal); R53.83 Other fatigue
CPT/HCPCS: 36415; 80053; 82306; 84443; 85025

== ENCOUNTER → 2022-01-17 | Outpatient (CLI) | payer MEDICARE, OTHER, SELFPAY ==
[2022-01-17 12:24] LABS: Absolute Lymphocyte Count 0.78 X10^3/uL (0.83-4.51); Absolute Neutrophil Count 9.4 X10^3/uL (2.0-7.7); Basophil# 0.01 X10^3/uL; Basophil% 0.1 % (0-1); Hematocrit 46.1 % (40-54); Hemoglobin 15.3 g/dL (13.0-16.5); Lymphocyte # 0.78 X10^3/ul (0.83-4.51); Lymphocyte % 7.1 % (19-41); Mean Corp Hgb Conc 33.2 g/dL (32-36); Mean Corpuscular Hgb 32.7 pg (27.0-32.0); Mean Corpuscular Volume 98.5 fL (80-94); Mean Platelet Vol. 9.9 fl (6.2-12.0); Monocyte# 0.69 X10^3/uL; Monocyte% 6.3 % (0-10); NRBC Flagged by Analyzer 0 % (0-5); Neutrophil # 9.41 X10^3/uL (2.7-7.7); Platelet Count 224 K/mm3 (150-450); RBC Distribution Width SD 46.7 fl (35.1-43.9); Red Blood Count 4.68 M/mm3 (4.6-6.2); White Blood Count 10.9 K/mm3 (4.4-11.0)
[2022-01-17 12:55] LABS: ALB/GLOB Ratio 0.9 RATIO (0.9-2.4); AST(SGOT) 16 U/L (15-37); Alanine Aminotransfer ALT/SGPT 23 U/L (16-61); Albumin, Serum 3.8 g/dL (3.2-5.0); Alkaline Phosphatase 122 U/L (45-117); Anion Gap 8 (5-15); BUN 19 mg/dL (7-18); BUN/Creat Ratio 16.4 RATIO (10-20); Calcium,Total 8.9 mg/dL (8.5-10.1); Chloride 104 mmol/L (98-107); Creatinine, Serum 1.16 mg/dL (0.70-1.30); EST Glomerular Filtration Rate 64 mL/min (>60); Est Glom Filt Rate - Afr Amer 78 mL/min (>60); Globulin 4.1 g/dL (2.2-4.2); Glucose 101 mg/dL (74-106); Protein, Total 7.9 g/dL (6.4-8.2); Sodium Level 135 mmol/L (136-145)
== END | disposition home or self-care (01) ==
PROVIDERS: PCP Family Medicine Geriatric Medicine; Visit Provider Family Medicine Geriatric Medicine
DX: R10.9 Unspecified abdominal pain (principal); R19.7 Diarrhea, unspecified
CPT/HCPCS: 36415; 80053; 82274; 83630; 85025; 87177; 87209; 87493; 87506

== ENCOUNTER → 2022-01-17 | Outpatient (CLI) | payer MEDICARE, OTHER, SELFPAY ==
--- NOTE | 2022-01-17 12:47 | CT_ITS ---
STUDY: CT ABDOMEN AND PELVIS WITH CONTRAST REASON FOR EXAM: Male, 81 years old. Abdominal pain and diarrhea. RADIATION DOSAGE (If Supplied By Facility): CTDIvol = ( 12.06 ) mGy, DLP = ( 671.24 ) mGycm TECHNIQUE: Transaxial images were obtained from the dome of the diaphragm to the symphysis pubis with oral contrast. Oral and amp; IV Gastrografin and amp; 100mL Isovue-300 was administered. Sagittal and coronal images were reconstructed. Individualized dose optimization techniques were used for this CT. COMPARISON: Comparison is made with prior study 03/01/2020. FINDINGS: Stable mild degree of increased markings at the lung bases suggestive of atelectasis and/or scarring. The visualized portions of the heart are within normal limits. Normal liver. The patient is status post cholecystectomy. Normal spleen. Normal pancreas. Normal bilateral adrenal glands. Normal right kidney. Left parapelvic renal cysts. 1 cm cyst in the left upper pole. Normal visualized stomach. Normal small intestine. Diffuse thickening of the colon with inflammatory changes seen in the pericolonic fat. This is worse in the right hemicolon. This is in keeping with the pancolitis. The appendix is visualized and appears normal. There is scattered atherosclerotic calcification of the abdominal aorta, without a demonstrated aneurysm. Normal inferior vena cava. Normal retroperitoneum. Normal urinary bladder. There are prostatic calcifications. Normal abdominal wall. There are mild degenerative changes of the visualized lumbar spine. CT/Abdomen/Pelvis WITH Contrast IMPRESSION: WILKS colitis. Left parapelvic renal cysts. Prior cholecystectomy. Electronically Signed: Ian Bower MD at 14:34 EDT ,
== END | disposition home or self-care (01) ==
PROVIDERS: PCP Family Medicine Geriatric Medicine; Referring Provider Family Medicine Geriatric Medicine; Visit Provider Family Medicine Geriatric Medicine
DX: R10.9 Unspecified abdominal pain (principal); R19.7 Diarrhea, unspecified
CPT/HCPCS: 36415; 74177; 80053; 82274; 83630; 85025; 87177; 87209; 87493; 87506; Q9967

== ENCOUNTER → 2022-02-14 | Outpatient (CLI) | payer MEDICARE, OTHER, SELFPAY ==
[2022-02-14 12:01] LABS: Absolute Lymphocyte Count 1.22 X10^3/uL (0.83-4.51); Absolute Neutrophil Count 3.5 X10^3/uL (2.0-7.7); Basophil# 0.01 X10^3/uL; Basophil% 0.2 % (0-1); Hematocrit 42.4 % (40-54); Hemoglobin 14.2 g/dL (13.0-16.5); Lymphocyte # 1.22 X10^3/ul (0.83-4.51); Lymphocyte % 23.2 % (19-41); Mean Corp Hgb Conc 33.5 g/dL (32-36); Mean Corpuscular Volume 98.6 fL (80-94); Mean Platelet Vol. 9.5 fl (6.2-12.0); Monocyte% 9.5 % (0-10); NRBC Flagged by Analyzer 0 % (0-5); Neutrophil # 3.52 X10^3/uL (2.7-7.7); Neutrophil % 66.9 % (47-70); Platelet Count 228 K/mm3 (150-450); RBC Distribution Width CV 12.9 % (11.6-14.6); RBC Distribution Width SD 46.6 fl (35.1-43.9); White Blood Count 5.3 K/mm3 (4.4-11.0)
[2022-02-14 12:29] LABS: Vitamin D,25 Hydroxy 56.6 ng/mL
[2022-02-14 12:37] LABS: ALB/GLOB Ratio 0.9 RATIO (0.9-2.4); AST(SGOT) 18 U/L (15-37); Alanine Aminotransfer ALT/SGPT 20 U/L (16-61); Albumin, Serum 3.7 g/dL (3.2-5.0); Alkaline Phosphatase 92 U/L (45-117); Anion Gap 5 (5-15); BUN 15 mg/dL (7-18); BUN/Creat Ratio 17.3 RATIO (10-20); Calcium,Total 8.9 mg/dL (8.5-10.1); Chloride 107 mmol/L (98-107); Creatinine, Serum 0.87 mg/dL (0.70-1.30); EST Glomerular Filtration Rate 90 mL/min (>60); Est Glom Filt Rate - Afr Amer 109 mL/min (>60); Globulin 3.9 g/dL (2.2-4.2); Glucose 94 mg/dL (74-106); Potassium 4.3 mmol/L (3.5-5.1); Protein, Total 7.6 g/dL (6.4-8.2); Sodium Level 141 mmol/L (136-145); Thyroid Stim Hormone (TSH) 1.86 uIU/mL (0.358-3.74)
== END | disposition home or self-care (01) ==
LOC: LAB 10:59
PROVIDERS: PCP Family Medicine Geriatric Medicine; Visit Provider Family Medicine Geriatric Medicine
DX: E55.9 Vitamin D deficiency, unspecified (principal); R53.83 Other fatigue
CPT/HCPCS: 36415; 80053; 82306; 84443; 85025

== ENCOUNTER 2022-06-18 16:22 | Emergency (ER) | payer MEDICARE, OTHER, SELFPAY ==
[2022-06-18 16:23] VITALS: BP 131/77; PULSE 71; RESP 16; TEMP 36.5; O2SAT 98; BMI 23.8
--- NOTE | 2022-06-18 16:47 | CT_ITS ---
STUDY: CT ABDOMEN AND PELVIS WITH CONTRAST REASON FOR EXAM: Male, 82 years old. Abdominal pain RADIATION DOSAGE (If Supplied By Facility): CTDIvol = ( 15.45 ) mGy, DLP = ( 782.14 ) mGycm TECHNIQUE: Transaxial images were obtained from the dome of the diaphragm to the symphysis pubis without oral contrast. IV 100mL Isovue-370 was administered. Sagittal and coronal images were reconstructed. Individualized dose optimization techniques were used for this CT. COMPARISON: 01/17/2022 FINDINGS: The visualized lung bases are unremarkable. The visualized portions of the heart are within normal limits. Normal liver. There is non-visualization of the gallbladder, which may be secondary to either contraction or a prior cholecystectomy. Normal spleen. Normal pancreas. Normal bilateral adrenal glands. Normal right kidney. Normal left kidney. Suspect parapelvic cyst in the left kidney. Normal visualized stomach. Some mildly dilated fluid-filled small bowel in the pelvis may be secondary to gastroenteritis. Normal colon. There is non-visualization of the appendix. Normal abdominal aorta. Normal inferior vena cava. Normal retroperitoneum. Normal urinary bladder. There are prostatic calcifications. Normal abdominal wall. Normal osseous structures. CT/Abdomen/Pelvis W IV Cont ONLY IMPRESSION: Possible gastroenteritis with some mildly dilated fluid-filled loops of small bowel in the pelvis. Electronically Signed: Jorge Duffy MD at 18:37 EST ,
--- NOTE | 2022-06-18 16:48 | ED.VIS.GI ---
HPI HPI - GI History of Present Illness Chief Complaint: Abd Pain Narrative Narrative: 82-year-old male who denies significant past medical history presents with bilateral lower quadrant abdominal pain that began this morning at around 9:00 approximately 7 hours ago. He had normal bowel movement today, denies diarrhea. No problems with urination, no blood in his urine. Upon arrival to the emergency department he has vomited at least 4 times and continues to do so. He denies any blood in his emesis. No exacerbating or alleviating factors. Past surgical history includes remote cholecystectomy. He states that he is having severe pain in his bilateral lower quadrants of his abdomen. PFSH PFSH Medical History no medical history Home Medications glucosamine sulfate 500 mg tablet (Glucosamine) 500 mg PO DAILY 06/18/22 [History Last Taken Unknown] ondansetron 4 mg disintegrating tablet 4 mg PO Q6H PRN nausea and vomiting #20 tabs 06/18/22 [Rx Last Taken Unknown] Allergy/AdvReac Type Severity Reaction Status Date / Time venom-honey bee Allergy Rash Verified 06/18/22 16:23 [bee venom (honey bee)] Surgical History no surgical history Social History Smoking Status: Never smoker ROS ROS ED ROS Narrative Constitutional: No fever, no chills. HEENT: No sore throat. No neck pain. No loss of vision. No rhinorrhea. Cardiovascular: No chest pain. No palpitations. No pedal edema. Respiratory: No cough, no shortness of breath. Abdominal: Bilateral lower quadrant abdominal pain. Positive nausea. Positive vomiting. No diarrhea. Genitourinary: No dysuria. No hematuria. Musculoskeletal: No myalgias. No arthralgias. Neurologic: No headaches. No dizziness. No lightheadedness. Skin: No rash. No change in color. Psychiatric: No depression. No anxiety. EXAM Physical Exam Narrative Exam Narrative: Afebrile. Vital signs noted. HEENT: Normocephalic. Atraumatic. PERRL, EOMI. Neck soft and supple. No point tenderness or step off. Cardiovascular: Regular rate and rhythm. No murmurs, rubs, or gallops appreciated. Respiratory: No tachypnea. Lungs clear to auscultation bilaterally. Gastrointestinal: Abdomen soft, mild tenderness bilateral lower quadrants, with normoactive bowel sounds. No rebound or guarding. Vomiting in exam room. Neurological: Awake. Alert. Nonfocal, nonlateralizing. Skin: No rash. Normal color. No pallor. Musculoskeletal: No pedal edema. Full range of motion extremities. Const Vital Signs: 06/18/22 16:23 Temperature 97.7 F L Temperature Source Temporal Pulse Rate 71 Respiratory Rate 16 Blood Pressure 131/77 H Blood Pressure Mean 95 Pulse Ox 98 Oxygen Delivery Method Room Air MDM MDM MDM Narrative Medical decision making narrative: Patient was bolused normal saline 1 L intravenously. He was administered morphine for analgesia and ondansetron for his active vomiting. CBC, CMP, and lipase will be obtained along with urinalysis. I do feel that CT imaging is indicated. CBC shows normal white count at 10.5, hemoglobin normal at 14.8 with normal platelet count of 234. Electrolyte panel is grossly unremarkable except for glucose elevated at 150, anion gap normal at 7. Urinalysis is negative for ketones, negative for infection or blood. CT of the abdomen and pelvis with IV contrast does show fluid-filled small bowel loops in the pelvis consistent with gastroenteritis. Colon appears normal. I do not feel that antibiotics are indicated dictated. Upon repeat examination he is resting comfortably and states his vomiting has improved. At this point in time, I do not feel that he requires admission. He was told his start a clear liquid diet and advance as tolerated. He was written a prescription for Zofran ODT's #20. I do feel that this may be self-limiting. Strict return instructions were reviewed. Disposition is discharged home in stable condition. Lab Data Attestation: I reviewed the patient's lab results. Labs: Laboratory Results - last 24 hr 06/18/22 06/18/22 06/18/22 17:15 17:15 18:22 WBC 10.5 RBC 4.57 L Hgb 14.8 Hct 44.1 MCV 96.5 H MCH 32.4 H MCHC 33.6 RDW Std Deviation 45.4 H RDW Coeff of Pepe 12.7 Plt Count 234 MPV 9.3 Immature Gran % (Auto) 0.300 Neut % (Auto) 80.0 H Lymph % (Auto) 13.0 L Grainger % (Auto) 6.5 Eos % (Auto) 0.0 Baso % (Auto) 0.2 Absolute Neuts (auto) 8.4 H Absolute Lymphs (auto) 1.37 Nucleated RBC % 0 Sodium 138 Potassium 3.7 Chloride 104 Carbon Dioxide 27.0 Anion Gap 7 BUN 15 Creatinine 1.19 Estim Creat Clear Calc 51.85 Est GFR (MDRD) Af Amer 75 Est GFR (MDRD) Non-Af 62 BUN/Creatinine Ratio 12.6 Glucose 150 H Calcium 9.1 Total Bilirubin 0.60 AST 14 L ALT 21 Alkaline Phosphatase 106 Total Protein 7.7 Albumin 3.7 Globulin 4.0 Albumin/Globulin Ratio 0.9 Lipase 133 Urine Color Yellow Urine Clarity Clear Urine pH 7.0 Ur Specific [place] 1.005 Urine Protein 15 H Urine Glucose (UA) Normal Urine Ketones Negative Urine Occult Blood Negative Urine Nitrite Negative Urine Bilirubin Negative Urine Urobilinogen Normal Ur Leukocyte Esterase 25 H Urine RBC 0 SEEN Urine WBC 0 SEEN Ur Squamous Epith Cells 0 SEEN Urine Bacteria 0 SEEN Urine Mucus 0 SEEN Radiography Diagnostic Testing: Clinical Impression(s) from Imaging Studies Abdomen/Pelvis CT 06/18/22 16:47 IMPRESSION: Possible gastroenteritis with some mildly dilated fluid-filled loops of small bowel in the pelvis. Electronically Signed: Jorge Duffy MD at 18:37 EST , Discharge Plan Triage Chief Complaint: Abd Pain ED Provider: Mal Greene Dx/Rx/DC Orders Clinical Impression: Gastroenteritis, Abdominal pain, bilateral lower quadrant, Nausea & vomiting Instructions: ED Gastroenteritis, Viral (Adult), ED Vomiting (Adult), ED Abdominal Pain Unkn Cause Male... Prescriptions: New ondansetron 4 mg tablet,disintegrating 4 mg PO Q6H PRN (Reason: nausea and vomiting) Qty: 20 0RF No Action glucosamine sulfate [Glucosamine] 500 mg Tablet 500 mg PO DAILY Rx Instructions: administer with a meal Primary Care Provider: Nas Arvizu Chi Referrals: Nas Arvizu Chi, MD [Primary Care Provider] - 3-5 Days if not improving Activity Restrictions/Additional Instructions: Start a clear liquid diet and advance as tolerated. Disposition Disposition: Home, Self Care
[2022-06-18] MEDS: 0.9% Normal Saline 1,000 ML 1000 ML IV (17:02)
[2022-06-18] MEDS: Ondansetron 4 MG/2 ML Vial IV (17:02)
[2022-06-18] MEDS: Morphine 4 MG/ML Syringe IV (17:02)
[2022-06-18 17:33] LABS: Absolute Lymphocyte Count 1.37 X10^3/uL (0.83-4.51); Absolute Neutrophil Count 8.4 X10^3/uL (2.0-7.7); Basophil# 0.02 X10^3/uL; Basophil% 0.2 % (0-1); Hematocrit 44.1 % (40-54); Hemoglobin 14.8 g/dL (13.0-16.5); Lymphocyte # 1.37 X10^3/ul (0.83-4.51); Mean Corp Hgb Conc 33.6 g/dL (32-36); Mean Corpuscular Hgb 32.4 pg (27.0-32.0); Mean Corpuscular Volume 96.5 fL (80-94); Mean Platelet Vol. 9.3 fl (6.2-12.0); Monocyte# 0.69 X10^3/uL; Monocyte% 6.5 % (0-10); NRBC Flagged by Analyzer 0 % (0-5); Neutrophil # 8.43 X10^3/uL (2.7-7.7); Platelet Count 234 K/mm3 (150-450); RBC Distribution Width CV 12.7 % (11.6-14.6); RBC Distribution Width SD 45.4 fl (35.1-43.9); Red Blood Count 4.57 M/mm3 (4.6-6.2); White Blood Count 10.5 K/mm3 (4.4-11.0)
[2022-06-18 17:49] LABS: ALB/GLOB Ratio 0.9 RATIO (0.9-2.4); AST(SGOT) 14 U/L (15-37); Alanine Aminotransfer ALT/SGPT 21 U/L (16-61); Albumin, Serum 3.7 g/dL (3.2-5.0); Alkaline Phosphatase 106 U/L (45-117); Anion Gap 7 (5-15); BUN 15 mg/dL (7-18); BUN/Creat Ratio 12.6 RATIO (10-20); Calcium,Total 9.1 mg/dL (8.5-10.1); Chloride 104 mmol/L (98-107); Creatinine, Serum 1.19 mg/dL (0.70-1.30); EST Glomerular Filtration Rate 62 mL/min (>60); Est Glom Filt Rate - Afr Amer 75 mL/min (>60); Estimated Creatinine Clearance 51.85 ml/min; Glucose 150 mg/dL (74-106); Lipase 133 U/L (73-393); Potassium 3.7 mmol/L (3.5-5.1); Protein, Total 7.7 g/dL (6.4-8.2); Sodium Level 138 mmol/L (136-145)
[2022-06-18 18:32] LABS: Bacteria 0 SEEN /hpf (None Seen); Mucous, Urine 0 SEEN /hpf (<or=2+); Red Blood Cells-Urine 0 SEEN /hpf (0-5); Squamous Epithelial Cells - UA 0 SEEN /hpf (0-5); White Blood Cells 0 SEEN /hpf (0-5)
[2022-06-18 18:33] LABS: Glucose, Dipstick Normal (Normal); Ketone-Dipstick Negative (Negative); Leukocyte Esterase-Dipstick 25 /ul (Negative); Nitrite-Dipstick Negative (Negative); Occult Blood-Urine Negative /ul (Negative); Protein-Dipstick 15 mg/dl (Negative); Specific Gravity, Urine 1.005 (1.002-1.030); Urine Bilirubin Dipstick Negative (Negative); Urine Urobilinogen Normal (Normal)
[2022-06-18 18:39] LABS: Color, Urine Yellow (Yellow); Urine Clarity Clear (Clear)
[2022-06-18 19:10] VITALS: PULSE 88; O2SAT 99
== END 2022-06-18 19:33 | disposition home or self-care (01) ==
PROVIDERS: Emergency Provider Emergency Medicine; PCP Family Medicine Geriatric Medicine; Visit Provider Emergency Medicine
DX: K52.9 Noninfective gastroenteritis and colitis, unspecified (principal); R10.32 Left lower quadrant pain; R10.31 Right lower quadrant pain; R11.2 Nausea with vomiting, unspecified
CPT/HCPCS: 96361; 99283; 96374; 96375; 74177; 80053; 81001; 83690; 85025; J7030; Q9967; J2405

== ENCOUNTER 2022-06-18 23:37 | Inpatient (IN) | payer MEDICARE, OTHER, SELFPAY ==
[2022-06-18 23:38] VITALS: BP 88/70; PULSE 76; RESP 18; RESP 24; TEMP 36.1; BMI 22.4
[2022-06-19] VITALS (8 sets, daily range): BP systolic 124–137; BP diastolic 57–79; PULSE 68–88; RESP 16–19; TEMP 36.7–36.8; O2SAT 93–99; BMI 22.4
--- NOTE | 2022-06-19 00:55 | CT_ITS ---
We are attempting to reach an attending provider to discuss findings. An addendum with communication details will be sent when the communication is complete. EXAM: CT ANGIOGRAPHY ABDOMEN AND PELVIS WITHOUT AND WITH INTRAVENOUS CONTRAST CLINICAL INDICATION: Abominnal pain Abominnal pain. Previous appendectomy TECHNIQUE: Helically acquired angiography images were obtained of the abdomen and pelvis without and with intravenous contrast. This CT exam was performed using one or more of the following dose reduction techniques: automated exposure control, adjustment of the mA and/or kV according to patient size, and/or use of iterative reconstruction technique. This report was created using [employer] report generation technology. MIP reconstructed images were created and reviewed. CONTRAST: IV 100mL Isovue-370 RADIATION DOSE: CTDIvol = 26.06 mGy, DLP = 941.14 mGy-cm COMPARISON: CT scan abdomen and pelvis 06/18/[address] scan abdomen and pelvis with 01/17/2022, 03/01/2020, and 09/27/2017. FINDINGS: VASCULATURE: AORTA: There is mild atherosclerotic calcification of the abdominal aorta there is no demonstrated stenosis, aneurysm, dissection. CELIAC TRUNK AND MESENTERIC ARTERIES: No acute findings. No occlusion or significant stenosis. No dissection. RENAL ARTERIES: No acute findings. No occlusion or significant stenosis. No dissection. ILIAC ARTERIES: No acute findings. No occlusion or significant stenosis. No dissection. LOWER THORAX: There is mild atelectasis in the visualized lung bases. No cardiomegaly. No significant pericardial effusion. ABDOMEN: LIVER: Unremarkable. Homogeneous. No focal mass. GALLBLADDER AND BILE DUCTS: The gallbladder is not identified on current or previous studies, which is thought to represent previous cholecystectomy. No intra- or extrahepatic biliary ductal dilation. PANCREAS: Unremarkable. No focal cystic or solid mass. SPLEEN: Unremarkable. Normal size without focal cystic or solid mass. ADRENALS: Unremarkable. No nodules. KIDNEYS AND URETERS: There are prominent peripelvic cysts in the left kidney as well as bilateral cortical cysts. Cysts are simple in appearance or too small to reliably characterize. No follow-up imaging is necessary for simple renal cysts or cysts that are too small to characterize. STOMACH AND BOWEL: There is fluid distention of multiple loops of jejunum, with diameters ranging up to 3 cm. The distal small bowel is decompressed and findings suggest small bowel obstruction. Transition point is seen in the left para midline abdomen on axial images 118-114. The bowel turns abruptly at the transition point and this probably due to adhesions. No focal inflammatory change. PELVIS: APPENDIX: The appendix is not visualized, consistent with given history of prior appendectomy. BLADDER: Unremarkable. REPRODUCTIVE: The prostate gland is mildly enlarged. ABDOMEN and PELVIS: INTRAPERITONEAL SPACE: Unremarkable. No ascites or other fluid collection. No free air. BONES/JOINTS: There are multilevel degenerative changes in the visualized spine. No suspicious lytic or blastic abnormality. SOFT TISSUES: Unremarkable. No discrete abdominal or pelvic wall hernia. LYMPH NODES: Unremarkable. No enlarged lymph nodes. CT/CT ANGIO ABD&PEL W/O&W/DYE IMPRESSION: 1. No evidence for aneurysm, dissection, stenosis, or occlusion of the aorta or major abdominal or pelvic arteries. 2. Partial small bowel obstruction at the level of the distal jejunum or proximal ileum. This is probably due to adhesions. 3. Mildly enlarged prostate. 4. Previous cholecystectomy. Previous appendectomy by history. Electronically Signed: Kristopher Merino MD at 2:54 EST ,
--- NOTE | 2022-06-19 00:57 | ED.VIS.GI ---
HPI HPI - GI History of Present Illness Chief Complaint: Abd Pain Narrative Narrative: 82-year-old male presenting with abdominal pain. He states this is bilateral lower quadrants. He was seen earlier today and had blood work and a CT scan and his work-up was ultimately normal. He said he was given morphine while he was here when he got home his pain started coming back. He has been vomiting at home. He denies any diarrhea. He has had a bowel movement today. No fever, chills. PFSH PFSH Medical History Non-smoker Home Medications glucosamine sulfate 500 mg tablet (Glucosamine) 500 mg PO DAILY 06/18/22 [History Last Taken Unknown] ondansetron 4 mg disintegrating tablet 4 mg PO Q6H PRN nausea and vomiting #20 tabs 06/18/22 [Rx Last Taken Unknown] Allergy/AdvReac Type Severity Reaction Status Date / Time venom-honey bee Allergy Rash Verified 06/18/22 16:23 [bee venom (honey bee)] Surgical History History of appendectomy Social History Smoking Status: Never smoker ROS ROS ED Constitutional Constitutional ED: Denies chills, fever(s) or sweats Eyes Eyes: Denies blurry vision or change in vision ENT ENT ED: Denies ear pain or sore throat Cardiovascular Cardiovascular: Denies chest pain, palpitations or racing heartbeat Respiratory/Chest Respiratory/Chest: Denies cough, dyspnea or sputum Gastrointestinal Gastrointestinal: Reports abdominal pain, nausea and vomiting; Denies constipation or diarrhea Genitourinary Genitourinary ED: Denies dysuria, hematuria or urinary frequency Musculoskeletal Musculoskeletal: Denies arthralgias, myalgias or neck pain Integumentary Denies abscess, Abrasions or rash Neurologic Neurologic: Denies headache(s), paresthesias or weakness Psychiatric Psychiatric: Denies anxiety, depression, suicidal ideation or suicidal thoughts Endocrine Endocrinology: Denies polydipsia or polyuria EXAM Physical Exam Const Vital Signs: 06/18/22 23:38 06/18/22 23:38 06/19/22 01:20 Temperature 97.0 F L 97.0 F L Temperature Source Temporal Temporal Pulse Rate 76 76 75 Respiratory Rate 24 H 18 18 Blood Pressure 88/70 L 88/70 L 135/79 H Blood Pressure Mean 76 76 97 Pulse Ox 99 Oxygen Delivery Method Room Air 06/19/22 02:00 06/19/22 03:00 06/19/22 04:00 Temperature Temperature Source Pulse Rate 68 81 81 Respiratory Rate 19 H 16 16 Blood Pressure 137/67 H 128/57 H 135/59 H Blood Pressure Mean 90 80 84 Pulse Ox 93 97 98 Oxygen Delivery Method Room Air Room Air Room Air 06/19/22 05:23 Temperature Temperature Source Pulse Rate 76 Respiratory Rate 16 Blood Pressure 135/59 H Blood Pressure Mean 84 Pulse Ox 97 Oxygen Delivery Method Room Air Positive well nourished General Appearance ED: NAD HEENT Reports moist mucous membranes Eyes PERRL and EOMs intact bilaterally General Eye ED: Negative for pale conjunctiva or scleral icterus Neck no lymphadenopathy Resp normal respiratory effort and clear to auscultation bilaterally Auscultation: Negative for rales, rhonchi or wheezes Cardio regular rate and regular rhythm GI GI Narrative: Diffusely tender abdomen Palpation: tender Back/Spine no CVA tenderness Neuro CN's II-XII intact bilaterally Sensorium / Orientation: alert Psych mental status grossly normal and thought process normal Skin no wounds MDM MDM MDM Narrative Medical decision making narrative: Patient presenting with abdominal pain. He was seen earlier today and had blood work and imaging. His CT was negative at that time. He presents today with severe pain out of proportion to his exam. His initial blood pressure was 88/70 however this is the only isolated low blood pressure. Patient given IV fluids, morphine, Zofran I obtained blood work and I obtained a CTA of the abdomen. CBC and BMP are normal. He had normal LFTs earlier. His glucose was elevated at 177 without anion gap. Lactic acid is elevated at 3.3. Because of this patient was given a second liter of IV fluids CTA of the abdomen pelvis shows no evidence of aneurysm dissection stenosis or occlusion. It does show a partial small bowel obstruction at the level of the distal jejunum. Patient appears to be comfortable with morphine and Zofran. I spoke with Dr. Dawson regarding admission. NG tube was placed without sequela. NG tube noted to be in good position on my interpretation of the KUB. Radiologist interprets this and recommend be advanced. It was advanced. Patient admitted in stable condition. Impression: 1. Hypotension resolved 2. Small bowel obstruction 3. Nausea/vomiting 4. Lactic acidosis Lab Data Attestation: I reviewed the patient's lab results. Labs: Laboratory Results - last 24 hr 06/19/22 06/19/22 06/19/22 01:17 01:17 01:17 WBC 10.6 RBC 4.40 L Hgb 14.0 Hct 42.2 MCV 95.9 H MCH 31.8 MCHC 33.2 RDW Std Deviation 45.5 H RDW Coeff of Pepe 12.7 Plt Count 225 MPV 9.2 Immature Gran % (Auto) 0.400 Neut % (Auto) 91.3 H Lymph % (Auto) 5.3 L Nelson % (Auto) 2.9 Eos % (Auto) 0.0 Baso % (Auto) 0.1 Absolute Neuts (auto) 9.7 H Absolute Lymphs (auto) 0.56 L Nucleated RBC % 0 Sodium 139 Potassium 4.0 Chloride 106 Carbon Dioxide 25.0 Anion Gap 8 BUN 15 Creatinine 1.19 Estim Creat Clear Calc 51.54 Est GFR (MDRD) Af Amer 75 Est GFR (MDRD) Non-Af 62 BUN/Creatinine Ratio 12.6 Glucose 177 H Lactic Acid 3.3 H* Calcium 9.1 Radiography Diagnostic Testing: Clinical Impression(s) from Imaging Studies Abdomen/Pelvis CTA 06/19/22 00:55 IMPRESSION: 1. No evidence for aneurysm, dissection, stenosis, or occlusion of the aorta or major abdominal or pelvic arteries. 2. Partial small bowel obstruction at the level of the distal jejunum or proximal ileum. This is probably due to adhesions. 3. Mildly enlarged prostate. 4. Previous cholecystectomy. Previous appendectomy by history. Electronically Signed: Kristopher Merino MD at 2:54 EST Reading Location ID and State: [facility] / [place] , Service support , ADDENDUM: 06/19/22 0302 IMPRESSION: 1. No evidence for aneurysm, dissection, stenosis, or occlusion of the aorta or major abdominal or pelvic arteries. 2. Partial small bowel obstruction at the level of the distal jejunum or proximal ileum. This is probably due to adhesions. 3. Mildly enlarged prostate. 4. Previous cholecystectomy. Previous appendectomy by history. N.B. : The above Results were Read Back by Kristopher Merino MD to Julien Nguyen DO, and understanding confirmed on 06/19/2022 02:55:43 (ET). Electronically Signed: Kristopher Merino MD at 2:54 EST , KUB X-Ray 06/19/22 04:10 IMPRESSION: Tip of the nasogastric tube is in adequate position, however, the sidehole is in the distal esophagus. Recommend advancing the nasogastric tube 5 cm. Electronically Signed: Kristopher Merino MD at 4:50 EST , Discharge Plan Triage Chief Complaint: Abd Pain ED Provider: Julien Nguyen Dx/Rx/DC Orders Primary Care Provider: Nas Arvizu Chi
[2022-06-19] MEDS: Morphine 4 MG/ML Syringe IV (01:14)
[2022-06-19] MEDS: 0.9% Normal Saline 1,000 ML 1000 ML IV (01:14)
[2022-06-19] MEDS: Ondansetron 4 MG/2 ML Vial IV ×2 (01:14→09:51)
[2022-06-19 01:26] LABS: Absolute Lymphocyte Count 0.56 X10^3/uL (0.83-4.51); Absolute Neutrophil Count 9.7 X10^3/uL (2.0-7.7); Basophil# 0.01 X10^3/uL; Basophil% 0.1 % (0-1); Hematocrit 42.2 % (40-54); Lymphocyte # 0.56 X10^3/ul (0.83-4.51); Lymphocyte % 5.3 % (19-41); Mean Corp Hgb Conc 33.2 g/dL (32-36); Mean Corpuscular Hgb 31.8 pg (27.0-32.0); Mean Corpuscular Volume 95.9 fL (80-94); Mean Platelet Vol. 9.2 fl (6.2-12.0); Monocyte# 0.31 X10^3/uL; Monocyte% 2.9 % (0-10); NRBC Flagged by Analyzer 0 % (0-5); Neutrophil # 9.69 X10^3/uL (2.7-7.7); Neutrophil % 91.3 % (47-70); POSITIVE DIFFERENTIAL YES; Platelet Count 225 K/mm3 (150-450); RBC Distribution Width CV 12.7 % (11.6-14.6); RBC Distribution Width SD 45.5 fl (35.1-43.9); White Blood Count 10.6 K/mm3 (4.4-11.0)
[2022-06-19 01:37] LABS: Differential Indicated SCAN CRITERIA MET
[2022-06-19 01:41] LABS: Anion Gap 8 (5-15); BUN 15 mg/dL (7-18); BUN/Creat Ratio 12.6 RATIO (10-20); Calcium,Total 9.1 mg/dL (8.5-10.1); Chloride 106 mmol/L (98-107); Creatinine, Serum 1.19 mg/dL (0.70-1.30); EST Glomerular Filtration Rate 62 mL/min (>60); Est Glom Filt Rate - Afr Amer 75 mL/min (>60); Estimated Creatinine Clearance 51.54 ml/min; Glucose 177 mg/dL (74-106); Sodium Level 139 mmol/L (136-145)
[2022-06-19 01:55] LABS: Lactic Acid 3.3 mmol/L (0.4-1.9)
[2022-06-19] MEDS: 0.9% Normal Saline 1,000 ML 999 ML IV (02:29)
[2022-06-19] MEDS: Oxymetazoline 0.05% 1 SPRAY SPRAY.BTL 2 SPRAY NASAL (03:45)
--- NOTE | 2022-06-19 04:10 | RAD_ITS ---
EXAM: XR ABDOMEN, 1 VIEW CLINICAL INDICATION: bowel obstruction -- KUB with both diaphragms for NG/OG Verification bowel obstruction -- KUB with both diaphragms for NG/OG Verification TECHNIQUE: Frontal supine view of the abdomen/pelvis. This report was created using [employer] report generation technology. COMPARISON: None. FINDINGS: LOWER THORAX: No acute pathology. GASTROINTESTINAL TRACT: Prominent small bowel gas consistent with recently demonstrated small bowel obstruction.. ORGANS: Unremarkable as visualized. No organomegaly. No abnormal calcifications. BONES/JOINTS: No acute pathology. SOFT TISSUES: No acute pathology. TUBES, LINES AND DEVICES: There is a nasogastric tube with its tip in the expected region of the body the stomach. Sidehole for the tube is at the level of the diaphragmatic hiatus and is likely to be within the distal esophagus. RAD/Abdomen Single View (Portable) IMPRESSION: Tip of the nasogastric tube is in adequate position, however, the sidehole is in the distal esophagus. Recommend advancing the nasogastric tube 5 cm. Electronically Signed: Kristopher Merino MD at 4:50 EST ,
[2022-06-19 05:22] LABS: Reflex Lactate? Y
--- NOTE | 2022-06-19 05:26 | CON.PCM.SX_ITS ---
Assessment & Plan Assessment/Plan (1) Abdominal pain, bilateral lower quadrant: (2) Nausea & vomiting: PLAN: We will leave the NG tube in until he passes flatus. Ice chips and hard candy are appropriate. We will aggressively hydrate him. The present time with only having a laparoscopic cholecystectomy I think adhesions are not as high on my list for causing bowel obstructions. HPI Consult Data Date of Consult: 06/19/22 HPI Narrative HPI Narrative: EMY PERAZA, is a 82 M who presents with abdominal pain.? He states this is bilateral lower quadrants.? He was seen earlier today and had blood work and a CT scan and his work-up was ultimately normal.? He said he was given morphine while he was here when he got home his pain started coming back.? He has been vomiting at home.? He denies any diarrhea.? He has had a bowel movement today.? No fever, chills. Was seen in the ER yesterday repeat CTA of the abdomen raises the question of a bowel obstruction. NG tube has been placed in the emergency department on the present time he is not complaining of any abdominal pain. He is not passing any flatus. [facility] Medical History Non-smoker Home Medications glucosamine sulfate 500 mg tablet (Glucosamine) 500 mg PO DAILY 06/18/22 [History Last Taken Unknown] ondansetron 4 mg disintegrating tablet 4 mg PO Q6H PRN nausea and vomiting #20 tabs 06/18/22 [Rx Last Taken Unknown] Allergy/AdvReac Type Severity Reaction Status Date / Time venom-honey bee Allergy Rash Verified 06/18/22 16:23 [bee venom (honey bee)] Surgical History History of appendectomy Social History Smoking Status: Never smoker ROS Constitutional Constitutional: Denies anorexia, chills or fever(s) Eyes Eyes: Denies blurry vision Cardiovascular Cardiovascular: Denies chest pain Respiratory/Chest Respiratory/Chest: Denies cough or dyspnea Gastrointestinal Gastrointestinal: Reports abdominal pain, nausea and vomiting; Denies constipation or hematochezia Genitourinary Genitourinary: Denies change in urinary stream Physical Exam Const alert, oriented x3 and no apparent distress HEENT normocephalic and head/scalp atraumatic Eyes PERRL and EOMs intact bilaterally Resp clear to auscultation bilaterally Cardio Rate: regular rate Rhythm: regular rhythm GI soft to palpation, non-tender and non-distended Extremity normal to inspection Lab / Micro Data Result Diagrams: 06/19/22 01:17 06/19/22 01:17 Labs: Laboratory Results - last 24 hr 06/19/22 01:17: WBC 10.6, RBC 4.40 L, Hgb 14.0, Hct 42.2, MCV 95.9 H, MCH 31.8, MCHC 33.2, RDW Std Deviation 45.5 H, RDW Coeff of Pepe 12.7, Plt Count 225, MPV 9.2, Immature Gran % (Auto) 0.400, Neut % (Auto) 91.3 H, Lymph % (Auto) 5.3 L, Hand % (Auto) 2.9, Eos % (Auto) 0.0, Baso % (Auto) 0.1, Absolute Neuts (auto) 9.7 H, Absolute Lymphs (auto) 0.56 L, Nucleated RBC % 0 06/19/22 01:17: Sodium 139, Potassium 4.0, Chloride 106, Carbon Dioxide 25.0, Anion Gap 8, BUN 15, Creatinine 1.19, Estim Creat Clear Calc 51.54, Est GFR (MDRD) Af Amer 75, Est GFR (MDRD) Non-Af 62, BUN/Creatinine Ratio 12.6, Glucose 177 H, Calcium 9.1 06/19/22 01:17: Lactic Acid 3.3 H* Radiology Impression Abdomen/Pelvis CTA 06/19/22 00:55 IMPRESSION: 1. No evidence for aneurysm, dissection, stenosis, or occlusion of the aorta or major abdominal or pelvic arteries. 2. Partial small bowel obstruction at the level of the distal jejunum or proximal ileum. This is probably due to adhesions. 3. Mildly enlarged prostate. 4. Previous cholecystectomy. Previous appendectomy by history. Electronically Signed: Kristopher Merino MD at 2:54 EST Reading Location ID and State: [facility] / [place] , Service support , ADDENDUM: 12/19/22 0302 IMPRESSION: 1. No evidence for aneurysm, dissection, stenosis, or occlusion of the aorta or major abdominal or pelvic arteries. 2. Partial small bowel obstruction at the level of the distal jejunum or proximal ileum. This is probably due to adhesions. 3. Mildly enlarged prostate. 4. Previous cholecystectomy. Previous appendectomy by history. N.B. : The above Results were Read Back by Kristopher Merino MD to Julien Nguyen DO, and understanding confirmed on 06/19/2022 02:55:43 (ET). Electronically Signed: Kristopher Merino MD at 2:54 EST , KUB X-Ray 06/19/22 04:10 IMPRESSION: Tip of the nasogastric tube is in adequate position, however, the sidehole is in the distal esophagus. Recommend advancing the nasogastric tube 5 cm. Electronically Signed: Kristopher Merino MD at 4:50 EST ,
[2022-06-19] MEDS: 0.9% Normal Saline 1,000 ML 100 ML IV ×2 (06:28→16:07)
--- NOTE | 2022-06-19 06:30 | RAD_ITS ---
EXAM: XR ABDOMEN, 1 VIEW CLINICAL INDICATION: NG placement NG placement TECHNIQUE: Frontal supine view of the abdomen/pelvis. This report was created using [employer] report generation technology. COMPARISON: Exam done at 0356 hours. FINDINGS: LOWER THORAX: No acute pathology. GASTROINTESTINAL TRACT: There is redemonstration of prominent small bowel gas, consistent with obstruction. ORGANS: Unremarkable as visualized. No organomegaly. No abnormal calcifications. BONES/JOINTS: No acute pathology. SOFT TISSUES: No acute pathology. TUBES, LINES AND DEVICES: Tip and sidehole of the nasogastric tube are now within the stomach. RAD/Abdomen Single View IMPRESSION: Nasogastric tube is in adequate position. Electronically Signed: Kristopher Merino MD at 7:35 EST Reading Location ID and State: [facility] / [place] , Service support ,
[2022-06-19 07:51] LABS: Absolute Lymphocyte Count 0.57 X10^3/uL (0.83-4.51); Absolute Neutrophil Count 10.1 X10^3/uL (2.0-7.7); Basophil# 0.01 X10^3/uL; Basophil% 0.1 % (0-1); Hemoglobin 14.2 g/dL (13.0-16.5); Lymphocyte # 0.57 X10^3/ul (0.83-4.51); Mean Corp Hgb Conc 33.8 g/dL (32-36); Mean Corpuscular Hgb 33.2 pg (27.0-32.0); Mean Corpuscular Volume 98.1 fL (80-94); Mean Platelet Vol. 9.2 fl (6.2-12.0); Monocyte# 0.72 X10^3/uL; Monocyte% 6.3 % (0-10); NRBC Flagged by Analyzer 0 % (0-5); Neutrophil # 10.14 X10^3/uL (2.7-7.7); Neutrophil % 88.2 % (47-70); POSITIVE DIFFERENTIAL YES; Platelet Count 205 K/mm3 (150-450); RBC Distribution Width CV 13.1 % (11.6-14.6); RBC Distribution Width SD 46.5 fl (35.1-43.9); Red Blood Count 4.28 M/mm3 (4.6-6.2); White Blood Count 11.5 K/mm3 (4.4-11.0)
[2022-06-19 07:57] LABS: Differential Indicated SCAN CRITERIA MET
[2022-06-19 08:14] LABS: Anion Gap 6 (5-15); BUN 14 mg/dL (7-18); BUN/Creat Ratio 14.9 RATIO (10-20); Chloride 107 mmol/L (98-107); Creatinine, Serum 0.94 mg/dL (0.70-1.30); EST Glomerular Filtration Rate 82 mL/min (>60); Est Glom Filt Rate - Afr Amer 99 mL/min (>60); Estimated Creatinine Clearance 65.24 ml/min; Glucose 127 mg/dL (74-106); Potassium 4.3 mmol/L (3.5-5.1); Sodium Level 140 mmol/L (136-145)
[2022-06-19 08:17] LABS: Lactic Acid 1.3 mmol/L (0.4-1.9)
[2022-06-19] MEDS: HYDROmorphone 0.5 MG/0.5 ML SYRINGE IV (16:11)
--- NOTE | 2022-06-19 19:00 | PCA ---
EMERGENCY DOCUMENTATION
--- NOTE | 2022-06-19 19:00 | NURSING ---
Emergency Documentation
[2022-06-20] MEDS: 0.9% Normal Saline 1,000 ML 100 ML IV ×2 (01:22→11:14)
[2022-06-20 03:13] VITALS: BP 119/80; PULSE 70; RESP 16; TEMP 37.2; O2SAT 97
[2022-06-20 08:11] LABS: Absolute Lymphocyte Count 0.89 X10^3/uL (0.83-4.51); Absolute Neutrophil Count 8.9 X10^3/uL (2.0-7.7); Basophil# 0.01 X10^3/uL; Basophil% 0.1 % (0-1); Hematocrit 39.4 % (40-54); Hemoglobin 12.9 g/dL (13.0-16.5); Lymphocyte # 0.89 X10^3/ul (0.83-4.51); Lymphocyte % 8.2 % (19-41); Mean Corp Hgb Conc 32.7 g/dL (32-36); Mean Corpuscular Hgb 32.9 pg (27.0-32.0); Mean Corpuscular Volume 100.5 fL (80-94); Mean Platelet Vol. 9.8 fl (6.2-12.0); Monocyte# 1.08 X10^3/uL; Monocyte% 9.9 % (0-10); NRBC Flagged by Analyzer 0 % (0-5); Neutrophil # 8.88 X10^3/uL (2.7-7.7); Neutrophil % 81.4 % (47-70); Platelet Count 192 K/mm3 (150-450); RBC Distribution Width CV 13.4 % (11.6-14.6); RBC Distribution Width SD 49.8 fl (35.1-43.9); Red Blood Count 3.92 M/mm3 (4.6-6.2); White Blood Count 10.9 K/mm3 (4.4-11.0)
[2022-06-20 08:28] VITALS: BP 120/73; PULSE 72; RESP 16; TEMP 36.7; O2SAT 94
[2022-06-20 08:42] LABS: Anion Gap 5 (5-15); BUN 21 mg/dL (7-18); BUN/Creat Ratio 25.1 RATIO (10-20); Calcium,Total 7.7 mg/dL (8.5-10.1); Chloride 109 mmol/L (98-107); Creatinine, Serum 0.84 mg/dL (0.70-1.30); EST Glomerular Filtration Rate 94 mL/min (>60); Est Glom Filt Rate - Afr Amer 113 mL/min (>60); Estimated Creatinine Clearance 73.01 ml/min; Glucose 99 mg/dL (74-106); Potassium 4.1 mmol/L (3.5-5.1); Sodium Level 142 mmol/L (136-145)
--- NOTE | 2022-06-20 11:44 | PN.SURG_ITS ---
Subjective Subjective Patient feels significantly better today. Still not passing any flatus. Objective Data Objective Data Abdomen is soft flat nondistended nontender Vital Signs: Vital Signs Temp Pulse Resp BP Pulse Ox O2 Del Method 98.0 F 72 16 120/73 94 Room Air 06/20/22 08:28 06/20/22 08:28 06/20/22 08:28 06/20/22 08:28 06/20/22 08:28 06/20/22 08:28 Oxygen Delivery Method Room Air Weight: 165 lb Body Mass Index (BMI) 22.4 Intake & Output: Intake and Output for Last 24 Hours 06/18/22 06/19/22 06/20/22 23:59 23:59 23:59 Intake Total 3075 / 3075 1910. / Output Total 1100 / 1100 Balance 1974 / Lab / Micro Data Result Diagrams: 06/20/22 07:00 06/20/22 07:00 Labs: Laboratory Results - last 24 hr 06/20/22 07:00: WBC 10.9, RBC 3.92 L, Hgb 12.9 L, Hct 39.4 L, MCV 100.5 H, MCH 32.9 H, MCHC 32.7, RDW Std Deviation 49.8 H, RDW Coeff of Pepe 13.4, Plt Count 192, MPV 9.8, Immature Gran % (Auto) 0.400, Neut % (Auto) 81.4 H, Lymph % (Auto) 8.2 L, [place] % (Auto) 9.9, Eos % (Auto) 0.0, Baso % (Auto) 0.1, Absolute Neuts (auto) 8.9 H, Absolute Lymphs (auto) 0.89, Nucleated RBC % 0 06/20/22 07:00: Sodium 142, Potassium 4.1, Chloride 109 H, Carbon Dioxide 28.0, Anion Gap 5, BUN 21 H, Creatinine 0.84, Estim Creat Clear Calc 73.01, Est GFR (MDRD) Af Amer 113, Est GFR (MDRD) Non-Af 94, BUN/Creatinine Ratio 25.1 H, Glucose 99, Calcium 7.7 L Assessment & Plan Assessment/Plan (1) Partial small bowel obstruction: PLAN: Patient is improving. I think the IV hydration was the guevara. I do not really think I need to do any Gastrografin studies on him and allow him to have ice chips he can drink some water and have a feeling that this is going to move things along.
--- NOTE | 2022-06-20 13:00 | RAD_ITS ---
STUDY: GASTROGRAFIN SMALL BOWEL FOLLOW-THROUGH EXAMINATION. REASON FOR EXAM: Male, 82 years old. Partial small bowel obstruction -- with gastrografin through NG tube TECHNIQUE: GASTROGRAFIN was introduced into the indwelling orogastric tube. A manager safe film was obtained. COMPARISON: None. FINDINGS: A nasogastric tube is seen with the tip in the body of the stomach. There is evidence of a partial small bowel obstruction with gas and fecal material is seen in the colon. There is delay in the transit through the small bowel loops although contrast is seen in the right hemicolon at the 120 minutes following the ingestion of GASTROGRAFIN. RAD/Small Bowel Series Only IMPRESSION: Findings in keeping with a partial small bowel obstruction. Electronically Signed: Ian Bower MD at 8:30 EST ,
--- NOTE | 2022-06-20 16:15 | CASEMGMT ---
ATUL LUONG Discharge Planning Assessment: Face to Face with patient for initial transition planning/care coordination assessment. Pt alert and agreeable to participating in assessment. Pt's Evi and daughter Honey at bedside and pt gave permission to speak in front of family. ATUL LUONG introduced self and role at [facility], voices understanding. Care providers, pharmacy, and demographics verified. PCP: Dr. Arvizu Specialists: Paul (urologist) Preferred [facility]acy: [facility] Insurance: MCR A/B, MMO Prescription Benefit: No Living Will/HPOA: Yes, cannot recall who is listed as the HPOA. Notified that [facility] does not have a copy of these documents. Requested they be brought in for inclusion. Pt's agreeable to finding and bringing in the documents. LNOK: spouse Evi Living Arrangements: Pt lives in a single story home with one step to enter with his . 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 Transportation: Pt drives and family can drive if he is unable. DME: Pt does not have any DME but they have canes in the home for his . SNF/HHC: pt denies Plan: Pt plans to return home with the support of his family. Will continue to monitor and assist with any discharge needs as identified. Jose E Dean RN CM
[2022-06-20 16:30] VITALS: BP 123/70; PULSE 69; RESP 16; TEMP 36.9; O2SAT 97
[2022-06-20 23:10] VITALS: BP 125/60; PULSE 58; RESP 16; TEMP 37.1; O2SAT 94
[2022-06-21] MEDS: HYDROmorphone 0.5 MG/0.5 ML SYRINGE IV (01:04)
[2022-06-21] MEDS: 0.9% Normal Saline 1,000 ML 100 ML IV (01:07)
[2022-06-21 05:20] LABS: Absolute Lymphocyte Count 0.92 X10^3/uL (0.83-4.51); Absolute Neutrophil Count 6.4 X10^3/uL (2.0-7.7); Basophil# 0.01 X10^3/uL; Basophil% 0.1 % (0-1); Hematocrit 34.8 % (40-54); Hemoglobin 11.7 g/dL (13.0-16.5); Lymphocyte # 0.92 X10^3/ul (0.83-4.51); Lymphocyte % 11.5 % (19-41); Mean Corp Hgb Conc 33.6 g/dL (32-36); Mean Corpuscular Hgb 33.4 pg (27.0-32.0); Mean Corpuscular Volume 99.4 fL (80-94); Mean Platelet Vol. 9.6 fl (6.2-12.0); Monocyte# 0.69 X10^3/uL; Monocyte% 8.6 % (0-10); NRBC Flagged by Analyzer 0 % (0-5); Neutrophil # 6.37 X10^3/uL (2.7-7.7); Neutrophil % 79.4 % (47-70); Platelet Count 157 K/mm3 (150-450); RBC Distribution Width CV 13.3 % (11.6-14.6); RBC Distribution Width SD 48.5 fl (35.1-43.9)
[2022-06-21 05:58] LABS: Anion Gap 3 (5-15); BUN 19 mg/dL (7-18); BUN/Creat Ratio 24.3 RATIO (10-20); Calcium,Total 7.7 mg/dL (8.5-10.1); Chloride 112 mmol/L (98-107); Creatinine, Serum 0.78 mg/dL (0.70-1.30); EST Glomerular Filtration Rate 101 mL/min (>60); Est Glom Filt Rate - Afr Amer 122 mL/min (>60); Estimated Creatinine Clearance 61.33 ml/min; Glucose 99 mg/dL (74-106); Potassium 3.6 mmol/L (3.5-5.1); Sodium Level 142 mmol/L (136-145)
[2022-06-21 06:27] VITALS: BP 117/58; PULSE 62; RESP 18; TEMP 37.3; O2SAT 98
--- NOTE | 2022-06-21 06:29 | PN.SURG_ITS ---
Subjective Subjective Patient states that after the Gastrografin contrast study that he had voluminous liquid stool. He is concerned because apparently within the past year he has had 2 diarrheal illnesses that he was told by Dr. Arvizu was related to may be Salmonella. He is concerned that that is causing his current issue. He is currently denying any nausea or abdominal pain. He has significant discomfort from his NG tube Objective Data Objective Data Vital Signs: Vital Signs Temp Pulse Resp BP Pulse Ox O2 Del Method 99.1 F 62 18 117/58 L 98 Room Air 06/21/22 06:27 06/21/22 06:27 06/21/22 06:27 06/21/22 06:27 06/21/22 06:27 06/21/22 06:27 Oxygen Delivery Method Room Air Weight: 165 lb 0.009 oz Body Mass Index (BMI) 22.4 Intake & Output: Intake and Output for Last 24 Hours 06/19/22 06/20/22 06/21/22 23:59 23:59 23:59 Intake Total 3075 / 3075 3261.67 / 3261.67 Output Total 1100 / 1100 Balance 1974 3261.67 / 3261.67 Lab / Micro Data Result Diagrams: 06/21/22 04:45 06/21/22 04:45 Labs: Laboratory Results - last 24 hr 06/20/22 07:00: WBC 10.9, RBC 3.92 L, Hgb 12.9 L, Hct 39.4 L, MCV 100.5 H, MCH 32.9 H, MCHC 32.7, RDW Std Deviation 49.8 H, RDW Coeff of Pepe 13.4, Plt Count 1 92, MPV 9.8, Immature Gran % (Auto) 0.400, Neut % (Auto) 81.4 H, Lymph % (Auto) 8.2 L, [place] % (Auto) 9.9, Eos % (Auto) 0.0, Baso % (Auto) 0.1, Absolute Neuts (auto) 8.9 H, Absolute Lymphs (auto) 0.89, Nucleated RBC % 0 06/20/22 07:00: Sodium 142, Potassium 4.1, Chloride 109 H, Carbon Dioxide 28.0, Anion Gap 5, BUN 21 H, Creatinine 0.84, Estim Creat Clear Calc 73.01, Est GFR (MDRD) Af Amer 113, Est GFR (MDRD) Non-Af 94, BUN/Creatinine Ratio 25.1 H, Glucose 99, Calcium 7.7 L 06/21/22 04:45: WBC 8.0, RBC 3.50 L, Hgb 11.7 L, Hct 34.8 L, MCV 99.4 H, MCH 33.4 H, MCHC 33.6, RDW Std Deviation 48.5 H, RDW Coeff of Pepe 13.3, Plt Count 157, MPV 9.6, Immature Gran % (Auto) 0.400, Neut % (Auto) 79.4 H, Lymph % (Auto) 11.5 L, [place] % (Auto) 8.6, Eos % (Auto) 0.0, Baso % (Auto) 0.1, Absolute Neuts (auto) 6.4, Absolute Lymphs (auto) 0.92, Nucleated RBC % 0 06/21/22 04:45: Sodium 142, Potassium 3.6, Chloride 112 H, Carbon Dioxide 27.0, Anion Gap 3 L, BUN 19 H, Creatinine 0.78, Estim Creat Clear Calc 61.33, Est GFR (MDRD) Af Amer 122, Est GFR (MDRD) Non-Af 101, BUN/Creatinine Ratio 24.3 H, Glucose 99, Calcium 7.7 L Physical Exam GI GI Narrative: Abdomen is softly mildly distended, very active bowel sounds, no focal mass Assessment & Plan Assessment/Plan (1) Partial small bowel obstruction: PLAN: I did personally remove the NG tube for the patient. We will initiate clear liquids. We will reassess later today for possible discharge. Still awaiting official results on his Gastrografin small bowel follow-through although contrast did make it to the ascending colon The patient is very much aware that there are no guarantees of complete resolution or recurrent small bowel obstructions. The site is felt to be left paramedian. Whether this is somehow related to one of the previous laparoscopic cholecystectomy port sites is not clear. Currently his abdomen is clinically benign albeit still slightly distended. Lemuel Escudero M.D., F.A.C.S.
[2022-06-21 10:11] VITALS: BP 112/59; PULSE 60; RESP 16; TEMP 37.1; O2SAT 97
--- NOTE | 2022-06-21 11:03 | DCINST_ITS ---
Discharge Instructions Diet Discharge Diet: Soft diet Activity Discharge Activity: Return to Normal Activity Follow Up Care Please Follow Up With: Brendon Dawson MD When: Follow-up in 7-10 days. Please call for an appointment Test Results: Test results from this visit will be discussed in further detail at your follow- up appointment, if applicable. Discharge Plan Admission Admit Date/Time: 06/19/22 05:29 Primary Reason for Your Visit: Partial small bowel obstruction Attending Provider: Brendon Dawson Primary Care Provider: Nas Arvizu Chi Instructions Additional Instructions / Restrictions: Recommend a soft food diet until follow-up Avoid any high fiber food products, i.e. corn, raw veggies, tough meats Discharge Orders/Prescriptions Prescriptions: Continued glucosamine sulfate [Glucosamine] 500 mg Tablet 500 mg PO DAILY Rx Instructions: administer with a meal tamsulosin 0.4 mg capsule 0.4 mg PO DAILY Label Comments: TAKE 1 CAPSULE BY MOUTH EVERY DAY Discontinued ondansetron 4 mg tablet,disintegrating 4 mg PO Q6H PRN (Reason: nausea and vomiting) Qty: 20 0RF Referrals / Follow Up: Brendon Dawson MD [Med Staff - Active Staff] - (Please call to schedule an appointment in 7-10 days) Nas Arvizu Chi, MD [Primary Care Provider] -
[2022-06-21] MEDS: 0.9% Normal Saline 1,000 ML 30 ML IV (11:37)
--- NOTE | 2022-06-21 14:38 | PCM.DC.SUM ---
Providers Date of Admission: 06/19/22 Primary Care Physician: Dr. Nas Arvizu MD Reason For Visit: ABDOMINAL PAIN Diagnosis Discharge Diagnosis (1) Partial small bowel obstruction: Status: Acute Code(s): K56.600 - Partial intestinal obstruction, unspecified as to cause Medications at Discharge Home Medications glucosamine sulfate 500 mg tablet (Glucosamine) 500 mg PO DAILY 06/18/22 tamsulosin 0.4 mg capsule 0.4 mg PO DAILY [facility] 06/19/22 Hospital Course Summary of Care Provided Minutes Spent on Discharge: 25 Hospital Course: Patient is an 82 y/o M who presented with bilateral lower abdominal pain. He presented earlier that day on 06/19/22 and was discharged as his CT scan was normal. He presented back to the ED as his abdominal pain returned and he had been vomiting. A CTA of the ab/pel was performed demonstrating partial small bowel obstruction distal to the level of the jejunum. Patient had an NG tube placed in the ED. A small bowel follow-through was performed demonstrating partial small bowel obstruction although contrast is seen in the right hemicolon at 120 minutes. Patient was treated with conservative measures. He was placed on a full liquid diet which he tolerated well. Upon discharge, patient was tolerating a full liquid diet. He denies feeling distended. He has had multiple bowel movements. He denies nausea and vomiting with his current diet. It is recommended the patient remain on a soft food diet upon discharge until he is evaluated by Dr. Dawson as an outpatient. Physical Exam GI normal to inspection, nondistended, normoactive bowel sounds Weight / BMI Weight Weight: 165 lb 0.009 oz Body Mass Index (BMI) 22.4 ABG / Lab / Microbiology Data Result Diagrams: 06/21/22 04:45 06/21/22 04:45 Laboratory: Laboratory Results - last 24 hr 06/21/22 04:45: WBC 8.0, RBC 3.50 L, Hgb 11.7 L, Hct 34.8 L, MCV 99.4 H, MCH 33.4 H, MCHC 33.6, RDW Std Deviation 48.5 H, RDW Coeff of Pepe 13.3, Plt Count 157, MPV 9.6, Immature Gran % (Auto) 0.400, Neut % (Auto) 79.4 H, Lymph % (Auto) 11.5 L, [place] % (Auto) 8.6, Eos % (Auto) 0.0, Baso % (Auto) 0.1, Absolute Neuts (auto) 6.4, Absolute Lymphs (auto) 0.92, Nucleated RBC % 0 06/21/22 04:45: Sodium 142, Potassium 3.6, Chloride 112 H, Carbon Dioxide 27.0, Anion Gap 3 L, BUN 19 H, Creatinine 0.78, Estim Creat Clear Calc 61.33, Est GFR (MDRD) Af Amer 122, Est GFR (MDRD) Non-Af 101, BUN/Creatinine Ratio 24.3 H, Glucose 99, Calcium 7.7 L Radiography Diagnostic Testing: Radiology Impression Small Bowel X-Ray 06/20/22 13:00 IMPRESSION: Findings in keeping with a partial small bowel obstruction. Electronically Signed: Ian Bower MD at 8:30 EST , D/C Instructions Discharge Diet: Soft diet Please Follow Up With: Brendon Dawson MD When: Follow-up in 7-10 days. Please call for an appointment Meaningful Use Info Meaningful Use Diagnoses (Choose all that apply): None applicable Discharge Plan Admission Admit Date/Time: 06/19/22 05:29 Primary Reason for Your Visit: Partial small bowel obstruction Attending Provider: Brendon Dawson Primary Care Provider: Nas Arvizu Chi Instructions Additional Instructions / Restrictions: Recommend a soft food diet until follow-up Avoid any high fiber food products, i.e. corn, raw veggies, tough meats Discharge Orders/Prescriptions Prescriptions: Continued glucosamine sulfate [Glucosamine] 500 mg Tablet 500 mg PO DAILY Rx Instructions: administer with a meal tamsulosin 0.4 mg capsule 0.4 mg PO DAILY Label Comments: TAKE 1 CAPSULE BY MOUTH EVERY DAY Discontinued ondansetron 4 mg tablet,disintegrating 4 mg PO Q6H PRN (Reason: nausea and vomiting) Qty: 20 0RF Referrals / Follow Up: Brendon Dawson MD [Med Staff - Active Staff] - (Please call to schedule an appointment in 7-10 days) Nas Arvizu Chi, MD [Primary Care Provider] - Disposition Discharge Orders: Discharge Patient (Routine); Ordered 06/21/22 Ordered By: Rosa FERGUSON Charges/Coding Visit Charges Inpatient E&M: 93440 Disch Hosp
[2022-06-21 15:24] VITALS: BP 115/62; PULSE 58; RESP 14; TEMP 36.9; O2SAT 95
[2022-06-21 16:28] VITALS: BP 115/62; PULSE 58; RESP 14; TEMP 36.9; O2SAT 95
== END 2022-06-21 18:37 | disposition home or self-care (01) | DRG 389 ==
LOC: ED 06-19 01:54 → MS3 06-19 11:22 → PCU 06-19 18:47
PROVIDERS: Admitting Provider Surgery; Emergency Provider Student in an Organized Health Care Education/Training Program; PCP Family Medicine Geriatric Medicine; Visit Provider Surgery
DX: K56.600 Partial intestinal obstruction, unspecified as to cause (principal); E87.20 Acidosis, unspecified; I95.9 Hypotension, unspecified; K52.9 Noninfective gastroenteritis and colitis, unspecified; R11.2 Nausea with vomiting, unspecified; R10.31 Right lower quadrant pain; R10.32 Left lower quadrant pain; Z79.899 Other long term (current) drug therapy
CPT/HCPCS: 36415; 74018; 74174; 74177; 74250; 80048; 80053; 81001; 83605; 83690; 85025; 96361; 96374; 96375; 99283; 99285; J7030; Q9967; A4216; J2405

== ENCOUNTER → 2022-08-08 | Outpatient (CLI) | payer MEDICARE, OTHER, SELFPAY ==
[2022-08-08 10:55] LABS: Absolute Lymphocyte Count 0.94 X10^3/uL (0.83-4.51); Absolute Neutrophil Count 3.9 X10^3/uL (2.0-7.7); Basophil# 0.01 X10^3/uL; Basophil% 0.2 % (0-1); Eosinophil# 0.15 X10^3/uL; Eosinophils% 2.7 % (0-5); Hematocrit 39.3 % (40-54); Hemoglobin 13.2 g/dL (13.0-16.5); Lymphocyte # 0.94 X10^3/ul (0.83-4.51); Lymphocyte % 16.9 % (19-41); Mean Corp Hgb Conc 33.6 g/dL (32-36); Mean Corpuscular Hgb 32.4 pg (27.0-32.0); Mean Corpuscular Volume 96.3 fL (80-94); Mean Platelet Vol. 9.4 fl (6.2-12.0); Monocyte# 0.54 X10^3/uL; Monocyte% 9.7 % (0-10); NRBC Flagged by Analyzer 0 % (0-5); Neutrophil # 3.91 X10^3/uL (2.7-7.7); Neutrophil % 70.1 % (47-70); Platelet Count 219 K/mm3 (150-450); RBC Distribution Width CV 12.8 % (11.6-14.6); RBC Distribution Width SD 45.6 fl (35.1-43.9); Red Blood Count 4.08 M/mm3 (4.6-6.2); White Blood Count 5.6 K/mm3 (4.4-11.0)
[2022-08-08 11:46] LABS: AST(SGOT) 16 U/L (15-37); Alanine Aminotransfer ALT/SGPT 15 U/L (16-61); Albumin, Serum 3.6 g/dL (3.2-5.0); Alkaline Phosphatase 93 U/L (45-117); Anion Gap 6 (5-15); BUN 12 mg/dL (7-18); BUN/Creat Ratio 14.1 RATIO (10-20); Chloride 107 mmol/L (98-107); Creatinine, Serum 0.85 mg/dL (0.70-1.30); EST Glomerular Filtration Rate 92 mL/min (>60); Est Glom Filt Rate - Afr Amer 111 mL/min (>60); Globulin 3.5 g/dL (2.2-4.2); Glucose 113 mg/dL (74-106); Potassium 4.2 mmol/L (3.5-5.1); Protein, Total 7.1 g/dL (6.4-8.2); Sodium Level 140 mmol/L (136-145); Thyroid Stim Hormone (TSH) 1.67 uIU/mL (0.358-3.74)
== END | disposition home or self-care (01) ==
LOC: POLAB3 10:27
PROVIDERS: PCP Family Medicine Geriatric Medicine; Visit Provider Family Medicine Geriatric Medicine
DX: E55.9 Vitamin D deficiency, unspecified (principal); R53.83 Other fatigue
CPT/HCPCS: 36415; 80053; 82306; 84443; 85025

== ENCOUNTER → 2023-02-06 | Outpatient (CLI) | payer MEDICARE, OTHER, SELFPAY ==
[2023-02-06 12:44] LABS: Absolute Neutrophil Count 3.5 X10^3/uL (2.0-7.7); Basophil# 0.02 X10^3/uL; Basophil% 0.4 % (0-1); Hematocrit 42.2 % (40-54); Hemoglobin 13.9 g/dL (13.0-16.5); Lymphocyte % 22.7 % (19-41); Mean Corp Hgb Conc 32.9 g/dL (32-36); Mean Corpuscular Hgb 32.6 pg (27.0-32.0); Mean Corpuscular Volume 99.1 fL (80-94); Mean Platelet Vol. 9.9 fl (6.2-12.0); Monocyte# 0.57 X10^3/uL; Monocyte% 10.8 % (0-10); NRBC Flagged by Analyzer 0 % (0-5); Neutrophil % 66.1 % (47-70); Platelet Count 218 K/mm3 (150-450); RBC Distribution Width CV 12.8 % (11.6-14.6); RBC Distribution Width SD 46.7 fl (35.1-43.9); Red Blood Count 4.26 M/mm3 (4.6-6.2); White Blood Count 5.3 K/mm3 (4.4-11.0)
[2023-02-06 13:03] LABS: Vitamin D,25 Hydroxy 51.4 ng/mL
[2023-02-06 13:12] LABS: AST(SGOT) 18 U/L (15-37); Alanine Aminotransfer ALT/SGPT 21 U/L (16-61); Albumin, Serum 3.7 g/dL (3.2-5.0); Alkaline Phosphatase 98 U/L (45-117); Anion Gap 4 (5-15); BUN 17 mg/dL (7-18); BUN/Creat Ratio 17.8 RATIO (10-20); Chloride 104 mmol/L (98-107); Creatinine, Serum 0.95 mg/dL (0.70-1.30); EST Glomerular Filtration Rate 80 mL/min (>60); Est Glom Filt Rate - Afr Amer 97 mL/min (>60); Globulin 3.8 g/dL (2.2-4.2); Glucose 88 mg/dL (74-106); Potassium 4.4 mmol/L (3.5-5.1); Protein, Total 7.5 g/dL (6.4-8.2); Sodium Level 137 mmol/L (136-145); Thyroid Stim Hormone (TSH) 1.52 uIU/mL (0.358-3.74)
== END | disposition home or self-care (01) ==
PROVIDERS: PCP Family Medicine Geriatric Medicine; Visit Provider Family Medicine Geriatric Medicine
DX: R53.83 Other fatigue (principal); E55.9 Vitamin D deficiency, unspecified
CPT/HCPCS: 36415; 80053; 82306; 84443; 85025

== ENCOUNTER → 2023-08-22 | Outpatient (CLI) | payer MEDICARE, OTHER, SELFPAY ==
--- NOTE | 2023-08-22 11:45 | CT_ITS ---
STUDY: CT BRAIN WITHOUT CONTRAST REASON FOR EXAM: Male, 83 years old. CLOSED HEAD INJURY RADIATION DOSAGE (If Supplied By Facility): CTDIvol = ( 44.99 ) mGy, DLP = ( 829.85 ) mGycm TECHNIQUE: Transaxial CT imaging of the brain was performed without administration of intravenous contrast material. Individualized dose optimization techniques were used for this CT. COMPARISON: No relevant priors. FINDINGS: Normal soft tissue structures. Normal calvarium. There is mild cerebral atrophy with widening of the extra-axial spaces and ventricular dilatation. There are areas of decreased attenuation within the white matter tracts of the supratentorial brain, consistent with microvascular disease changes. Normal basal ganglia and thalami. Normal brainstem. Normal cerebellum. There is no intracranial hemorrhage. There are no findings of an acute ischemic infarction. Atherosclerotic calcification of the cavernous portions of the internal carotid arteries bilaterally. Normal visualized paranasal sinuses. CT/Brain/Head without Contrast IMPRESSION: Chronic involutional changes of the brain. Electronically Signed: Ian Bower MD at 12:42 EST ,
--- OUTSIDE RECORDS SUMMARY | 2023-08-22 11:56 | XMS RPT_ITS | CCD ---
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 Name Role Phone Nas Arvizu Chi Primary Care Provider BRENDON DAWSON Referring Unavailable BRENDON DAWSON Attending Unavailable [facility] Unavailable Allergies Allergy Classification Reported Allergen(s) Allergy Type Date of Onset Reaction(s) Facility (1 source) bee stings [Other] Propensity to adverse reactions 7 Mental Status Change, Hives [facility] Work Phone: (1 source) OTHER; Translations: [OTHER] Propensity to adverse reactions (disorder) 7 [facility] Repository Medications Completed/Discontinued Medications Medication Drug Class(es) [...] 180.3 cm Brendon Dawson MD Work Phone: [facility] 07-10-2022 15:14-0500 Body temperature 97.7 [degF] Brendon Dawson MD Work Phone: [facility] 07-10-2022 15:14-0500 Body weight 73.48 kg Brendon Dawson MD Work Phone: [facility] 07-10-2022 15:14-0500 Diastolic blood pressure 78 mm[Hg] Brendon Dawson MD Work Phone: [facility] 07-10-2022 15:14-0500 Heart rate 104 /min Brendon Dawson MD Work Phone: [facility] 07-10-2022 15:14-0500 SaO2% (BldA) [Mass fraction] 97 % Brendon Dawson MD Work Phone: [facility] 07-10-2022 15:14-0500 Systolic blood pressure 110 mm[Hg] Brendon Dawson MD Work Phone: [facility] Encounters Encounter Date Encounter Type Care Provider Facility Start: 07-10-2022 End: 07-10-2022 ambulatory BRENDON DAWSON Facility:[facility] Start: 07-10-2022 End: 07-10-2022 Patient encounter procedure Brendon Dawson MD Work Phone: General Surgery Plan of Treatment Date Care Activity Detail Author Start: 07-02-2022 ADVANCE DIRECTIVE DISCUSSION ADVANCE DIRECTIVE DISCUSSION [facility] Start: 07-02-2022 DEPRESSION ASSESSMENT DEPRESSION ASS ESSMENT [facility] Start: 03-02-2022 Influenza vaccination INFLUENZA (#1) [facility] Start: 12-26-2021 COVID-19 VACCINE (5 - Booster for Moderna series) COVID-19 VACCINE (5 - Booster for Moderna series) [facility] Start: 08-13-2011 DIAB[facility] Start: 09-16-2008 PNEUMOCOCCAL: 65+ (2 - PCV) PNEUMOCOCCAL: 65+ (2 - PCV) [facility] Start: 1991 SHINGRIX VACCINE (1 of 2) KANG GRIX VACCINE (1 of 2) [facility] Start: 02-01-1960 Urine microalbumin profile DTAP,TDAP ,TD (1 - Tdap) [facility] Immunizations Immunization Date Immunization Notes Care Provider Fa cility 09-17-2007 pneumococcal polysaccharide vaccine, 23 valent Brendon Dawson MD Work Phone: [facility] Work Phone: Payers Date Payer Category Payer Medicare [id number] 2021 Unknown MMO MMO MEDICARE SUPPLEMENT [id number] 2021-Present [phone] [address] [place] [address] Indemnity [id number] 2006 Medicare MEDICARE MEDICAR E A AND B [id number] 2006-Present [phone] [address] [address] [place] [address] Medicare [id number] 2006 Medicare [id number] Social History Date Type Detail Facility Start: 07-10-2022 Tobacco smoking stat us NHIS Never smoked tobacco [facility] Start: 07-10-2022 Tobacco use and exposure Smoke less tobacco non-user [facility] Start: 07-10-2022 Alcohol intake Lifetime non-d sola (finding) [facility] Start: 1940 Sex Assigned At Not on file C [facility] Progress note 07-10-2022 Note Date & Type Note Facility 07-10-2022 Note HNO ID: [id number] Author: Brenodn Dawson MD Service: ? Author Type: Physician Type: Progress Notes Filed: 07/14/2022 7:20 AM Note Text: Subjective: Patient recently admitted to [facility] with a partial small bowel obstruction which [...] up with me on an as-needed basis. [facility] History of Present illness Narrative 07-10-2022 Brendon Dawson MD - 07/10/2022 3:05 PM EST Note Date & Type Note Facility 07-10-2022 History of Presen t illness Narrative Subjective: Patient recently admitted to [facility] with a partial small bowel obstruction which [...] an as-needed basis. documented in this encounter [facility] Evaluation note Note Date & Type Note Facility documented in this encounter [facility] Summary Purpose Family History No Family History [...] or prosecute any alcohol or drug abuse patient.[facility] Reason for Visit (unrecogniz ed section and [...] BE BASED ON THE PRIMARY CLINICAL RECORDS. [employer] [facility]. provides no warranty or guarantee of the accuracy or completeness of information in this document.
== END | disposition home or self-care (01) ==
LOC: CT 11:35
PROVIDERS: PCP Family Medicine Geriatric Medicine; Referring Provider Family Medicine Geriatric Medicine; Visit Provider Family Medicine Geriatric Medicine
DX: S09.90XA Unspecified injury of head, initial encounter (principal); E55.9 Vitamin D deficiency, unspecified; R53.83 Other fatigue
CPT/HCPCS: 36415; 70450; 80053; 82306; 84443; 85025

== ENCOUNTER → 2023-08-22 | Outpatient (CLI) | payer MEDICARE, OTHER, SELFPAY ==
[2023-08-22 10:54] LABS: Absolute Lymphocyte Count 1.18 X10^3/uL (0.83-4.51); Absolute Neutrophil Count 3.5 X10^3/uL (2.0-7.7); Basophil# 0.02 X10^3/uL; Basophil% 0.4 % (0-1); Hematocrit 40.5 % (40-54); Hemoglobin 13.5 g/dL (13.0-16.5); Lymphocyte # 1.18 X10^3/ul (0.83-4.51); Lymphocyte % 22.4 % (19-41); Mean Corp Hgb Conc 33.3 g/dL (32-36); Mean Corpuscular Hgb 32.5 pg (27.0-32.0); Mean Corpuscular Volume 97.6 fL (80-94); Mean Platelet Vol. 9.5 fl (6.2-12.0); Monocyte# 0.55 X10^3/uL; Monocyte% 10.4 % (0-10); NRBC Flagged by Analyzer 0 % (0-5); Neutrophil # 3.51 X10^3/uL (2.7-7.7); Neutrophil % 66.6 % (47-70); Platelet Count 209 K/mm3 (150-450); RBC Distribution Width CV 12.8 % (11.6-14.6); RBC Distribution Width SD 45.3 fl (35.1-43.9); Red Blood Count 4.15 M/mm3 (4.6-6.2); White Blood Count 5.3 K/mm3 (4.4-11.0)
--- OUTSIDE RECORDS SUMMARY | 2023-08-22 10:57 | XMS RPT_ITS | CCD ---
Author Name Unknown Address [address] [place] [address] Organization [facility] Care Team Providers Care Locomotive Observer Name Role Phone Nas Arvizu Chi Primary Care Provider [phone] BRENDON DAWSON Referring Unavailable BRENDON DAWSON Attending Unavailable [facility]VI[facility]U [facility] Primary [facility] Unavailable Allergies Allergy Classification Reported Allergen(s) Allergy Type Date of Onset Reaction(s) Facility (1 source) bee stings [Other] Propensity to adverse reactions 7 Mental Status Change, Hives [facility] Work Phone: (1 source) OTHER; Translations: [OTHER] Propensity to adverse reactions (disorder) 7 [facility] Repository Medications Completed/Discontinued Medications Medication Drug Class(es) Dates Sig (Normalized) Sig (Original) aspirin 81 mg delayed release oral tablet (1 source) Platelet Aggregation Inhibitor, Nonsteroidal Anti-inflammatory Drug Start: 02-13-2008 aspirin(ADULT LOW DOSE ASPIRIN 81 MG TAB, DELAYED RELEASE) Take one(1) tablet daily. 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] Onset: 08-17-2008 08-17-2008 Chronic Past or Other Problems Problem Classification Problem Date Documented Da te Episodic/Chronic Genitourinary symptoms and ill-defined conditions (2 sources) Retention of urine; Translations: [Retention of urine, unspecified] Onset: 10-29-2014 10-29-2014 Episodic Inflammatory conditions of male genital organs (1 source) Prostatitis; Translations: [Inflammatory disease of prostate, unspecified] Onset: 12-09-2014 12-09-2014 Episodic Other male genital disorders (1 source) History of prostatitis; Translations: [Personal history of other diseases of male genital organs] Onset: 10-29-2014 10-29-2014 Episodic Results Test Name Value Interpretation Reference Range Facil ity Vital Signs Date Time Vital Sign Value Performing Clinician Faci lity 07-10-2022 15:14-0500 Body height 180.3 cm Brendon Dawson MD Work Phone: [facility] 07-10-2022 15:14-0500 Body temperature 97.7 [degF] Brendon Dawson MD Work Phone: [facility] 07-10-2022 15:14-0500 Body weight 73.48 kg Brendon Dawson MD Work Phone: [facility] 07-10-2022 15:14-0500 Diastolic blood pressure 78 mm[Hg] Brendon Dawson MD Work Phone: [facility] 07-10-2022 15:14-0500 Heart rate 104 /min Brendon Dawson MD Work Phone: [facility] 07-10-2022 15:14-0500 SaO2% (BldA) [Mass fraction] 97 % Brendon Dawson MD Work Phone: [facility] 07-10-2022 15:14-0500 Systolic blood pressure 110 mm[Hg] Brendon Dawson MD Work Phone: [facility] Encounters Encounter Date Encounter Type Care Provider Facility Start: 07-10-2022 End: 07-10-2022 ambulatory BRENDON DAWSON Facility:[facility] Start: 07-10-2022 End: 07-10-2022 Patient encounter procedure Brendon Dawson MD Work Phone: General Surgery Plan of Treatment Date Care Activity Detail Author Start: 07-02-2022 ADVANCE DIRECTIVE DISCUSSION ADVANCE DIRECTIVE DISCUSSION [facility] Start: 07-02-2022 DEPRESSION ASSESSMENT DEPRESSION ASS ESSMENT [facility] Start: 03-02-2022 Influenza vaccination INFLUENZA (#1) [facility] Start: 12-26-2021 COVID-19 VACCINE (5 - Booster for Moderna series) COVID-19 VACCINE (5 - Booster for Moderna series) [facility] Start: 08-13-2011 [facility] Start: 09-16-2008 PNEUMOCOCCAL: 65+ (2 - PCV) PNEUMOCOCCAL: 65+ (2 - PCV) [facility] Start: 1991 SHINGRIX VACCINE (1 of 2) KANG GRIX VACCINE (1 of 2) [facility] Start: 02-01-1960 Urine microalbumin profile DTAP,TDAP ,TD (1 - Tdap) [facility] Immunizations Immunization Date Immunization Notes Care Provider Fa cility 09-17-2007 pneumococcal polysaccharide vaccine, 23 valent Brendon Dawson MD Work Phone: [facility] Work Phone: Payers Date Payer Category Payer Medicare [id number] 2021 Unknown MMO MMO MEDICARE SUPPLEMENT [id number] 2021-Present [phone] [address] [place] [address] Indemnity [id number] 2006 Medicare MEDICARE MEDICAR E A AND B [id number] 2006-Present [phone] [address] [address] [place] [address] Medicare [id number] 2006 Medicare [id number] Social History Date Type Detail Facility Start: 07-10-2022 Tobacco smoking stat us NHIS Never smoked tobacco [facility] Start: 07-10-2022 Tobacco use and exposure Smoke less tobacco non-user [facility] Start: 07-10-2022 Alcohol intake Lifetime non-d sola (finding) [facility] Start: 1940 Sex Assigned At Not on file [facility] Progress note 07-10-2022 Note Date & Type Note Facility 07-10-2022 Note HNO ID: [id number] Author: Brendon Dawson MD Service: ? Author Type: Physician Type: Progress Notes Filed: 07/14/2022 7:20 AM Note Text: Subjective: Patient recently admitted to [facility] with a partial small bowel obstruction which resolved on its own. Patient currently states his abdomen is soft tolerating a diet moving his bowels. Objective:Blood pressure 110/78, pulse 104, temperature 36.5 ?C (97.7 ?F), height 180.3 cm (5' 11 ), weight 73.5 kg (162 lb), SpO2 97 %. Abdomen is soft nontender nondistended Assessment: Partial small bowel obstruction Plan: This point we want to just have him gradually increase his activity gradually increase his diet small meals with plenty of fluids like for him to follow back up with me on an as-needed basis. [facility] History of Present illness Narrative 07-10-2022 Brendon Dawson MD - 07/10/2022 3:05 PM EST Note Date & Type Note Facility 07-10-2022 History of Presen t illness Narrative Subjective: Patient recently admitted to [facility] with a partial small bowel obstruction which resolved on its own. Patient currently states his abdomen is soft tolerating a diet moving his bowels. Objective:Blood pressure 110/78, pulse 104, temperature 36.5 C (97.7 F), height 180.3 cm (5' 11 ), weight 73.5 kg (162 lb), SpO2 97 %. Abdomen is soft nontender nondistended Assessment: Partial small bowel obstruction Plan: This point we want to just have him gradually increase his activity gradually increase his diet small meals with plenty of fluids like for him to follow back up with me on an as-needed basis. documented in this encounter [facility] Evaluation note Note Date & Type Note Facility documented in this encounter [facility] Summary Purpose Family History No Family History Records Found Advance Directives No Advanced Directives Records Found Additional Source Comments Source Comments (unrecognize d section and content) In the event this informatio n is protected by the Federal Confidentiality of Alcohol and Drug Abuse Patient Records regulations: The Federal rules restrict any use of the information to criminally investigate or prosecute any alcohol or drug abuse patient.[facility] Reason for Visit (unrecogniz ed section and content) Care Teams (unrecognized sec tion and content) (unrecognized sect ion and content) No Status Records Found INFORMATION SOURCE (unrecogn ized section and content) FOR RECORDS PERTAINING TO PATIENTS WHO ARE OR HAVE BEEN ENROLLED IN A CHEMICAL DEPENDENCY/SUBSTANCEABUSE PROGRAM, SOME INFORMATION MAY BE OMITTED. This clinical summary was aggregated from multiple sources. Caution should be exercised in using it in the provision of clinical care. This summary normalizes information from multiple sources, and as a consequence, information in this document may materially change the coding, format and clinical context of patient data. In addition, data may be omitted in some cases. CLINICAL DECISIONS SHOULD BE BASED ON THE PRIMARY CLINICAL RECORDS. [employer] [facility]. provides no warranty or guarantee of the accuracy or completeness of information in this document.
[2023-08-22 13:10] LABS: Vitamin D,25 Hydroxy 48.3 ng/mL
[2023-08-22 13:37] LABS: ALB/GLOB Ratio 1.1 RATIO (0.9-2.4); AST(SGOT) 19 U/L (15-37); Alanine Aminotransfer ALT/SGPT 19 U/L (16-61); Albumin, Serum 3.7 g/dL (3.2-5.0); Alkaline Phosphatase 100 U/L (45-117); Anion Gap 5 (5-15); BUN 15 mg/dL (7-18); Calcium,Total 8.9 mg/dL (8.5-10.1); Chloride 108 mmol/L (98-107); Creatinine, Serum 0.94 mg/dL (0.70-1.30); EST Glomerular Filtration Rate 82 mL/min (>60); Est Glom Filt Rate - Afr Amer 99 mL/min (>60); Globulin 3.5 g/dL (2.2-4.2); Glucose 91 mg/dL (74-106); Protein, Total 7.2 g/dL (6.4-8.2); Sodium Level 138 mmol/L (136-145); Thyroid Stim Hormone (TSH) 1.54 uIU/mL (0.358-3.74)
== END | disposition home or self-care (01) ==
LOC: POLAB3 10:35
PROVIDERS: PCP Family Medicine Geriatric Medicine; Visit Provider Family Medicine Geriatric Medicine
DX: R53.83 Other fatigue (principal); E55.9 Vitamin D deficiency, unspecified
CPT/HCPCS: 36415; 80053; 82306; 84443; 85025

== ENCOUNTER → 2023-11-14 | Outpatient (CLI) | payer MEDICARE, OTHER, SELFPAY | END | disposition home or self-care (01) | LOC: PSN 12:06 | PROVIDERS: PCP Family Medicine Geriatric Medicine; Visit Provider Family Medicine Geriatric Medicine | DX: R68.83 Chills (without fever) (principal) | CPT/HCPCS: 87631 ==

== ENCOUNTER → 2023-12-28 | Outpatient (CLI) | payer MEDICARE, OTHER, SELFPAY ==
[2023-12-28 12:59] LABS: Absolute Lymphocyte Count 0.86 X10^3/uL (0.83-4.51); Absolute Neutrophil Count 4.2 X10^3/uL (2.0-7.7); Basophil# 0.02 X10^3/uL; Basophil% 0.3 % (0-1); Eosinophil# 0.16 X10^3/uL; Eosinophils% 2.6 % (0-5); Hematocrit 41.9 % (40-54); Hemoglobin 13.8 g/dL (13.0-16.5); Lymphocyte # 0.86 X10^3/ul (0.83-4.51); Mean Corp Hgb Conc 32.9 g/dL (32-36); Mean Corpuscular Hgb 32.4 pg (27.0-32.0); Mean Corpuscular Volume 98.4 fL (80-94); Mean Platelet Vol. 8.7 fl (6.2-12.0); Monocyte# 0.91 X10^3/uL; Monocyte% 14.8 % (0-10); NRBC Flagged by Analyzer 0 % (0-5); Neutrophil # 4.19 X10^3/uL (2.7-7.7); Platelet Count 188 K/mm3 (150-450); RBC Distribution Width CV 13.5 % (11.6-14.6); RBC Distribution Width SD 48.4 fl (35.1-43.9); Red Blood Count 4.26 M/mm3 (4.6-6.2); White Blood Count 6.2 K/mm3 (4.4-11.0)
[2023-12-28 14:06] LABS: ALB/GLOB Ratio 0.9 RATIO (0.9-2.4); AST(SGOT) 14 U/L (15-37); Alanine Aminotransfer ALT/SGPT 17 U/L (16-61); Albumin, Serum 3.5 g/dL (3.2-5.0); Alkaline Phosphatase 98 U/L (45-117); Anion Gap 7 (5-15); BUN 11 mg/dL (7-18); BUN/Creat Ratio 9.8 RATIO (10-20); Calcium,Total 8.8 mg/dL (8.5-10.1); Chloride 105 mmol/L (98-107); Creatinine, Serum 1.12 mg/dL (0.70-1.30); EST Glomerular Filtration Rate 67 mL/min (>60); Est Glom Filt Rate - Afr Amer 81 mL/min (>60); Globulin 3.9 g/dL (2.2-4.2); Glucose 89 mg/dL (74-106); Potassium 3.7 mmol/L (3.5-5.1); Protein, Total 7.4 g/dL (6.4-8.2); Sodium Level 137 mmol/L (136-145)
== END | disposition home or self-care (01) ==
PROVIDERS: PCP Family Medicine Geriatric Medicine; Referring Provider Family Medicine Geriatric Medicine; Visit Provider Family Medicine Geriatric Medicine
DX: R19.7 Diarrhea, unspecified (principal); Z90.49 Acquired absence of other specified parts of digestive tract
CPT/HCPCS: 36415; 80053; 82274; 82705; 85025; 87177; 87209; 87493

== ENCOUNTER → 2024-02-20 | Outpatient (CLI) | payer MEDICARE, OTHER, SELFPAY ==
[2024-02-20 10:58] LABS: Absolute Lymphocyte Count 1.11 X10^3/uL (0.83-4.51); Absolute Neutrophil Count 3.4 X10^3/uL (2.0-7.7); Basophil# 0.02 X10^3/uL; Basophil% 0.4 % (0-1); Hematocrit 40.7 % (40-54); Hemoglobin 13.3 g/dL (13.0-16.5); Lymphocyte # 1.11 X10^3/ul (0.83-4.51); Lymphocyte % 21.6 % (19-41); Mean Corp Hgb Conc 32.7 g/dL (32-36); Mean Corpuscular Hgb 32.8 pg (27.0-32.0); Mean Corpuscular Volume 100.2 fL (80-94); Mean Platelet Vol. 9.3 fl (6.2-12.0); Monocyte# 0.57 X10^3/uL; Monocyte% 11.1 % (0-10); NRBC Flagged by Analyzer 0 % (0-5); Neutrophil # 3.44 X10^3/uL (2.7-7.7); Neutrophil % 66.7 % (47-70); Platelet Count 228 K/mm3 (150-450); RBC Distribution Width CV 13.2 % (11.6-14.6); RBC Distribution Width SD 48.8 fl (35.1-43.9); Red Blood Count 4.06 M/mm3 (4.6-6.2); White Blood Count 5.2 K/mm3 (4.4-11.0)
[2024-02-20 11:31] LABS: AST(SGOT) 15 U/L (15-37); Alanine Aminotransfer ALT/SGPT 15 U/L (16-61); Albumin, Serum 3.5 g/dL (3.2-5.0); Alkaline Phosphatase 90 U/L (45-117); Anion Gap 2 (5-15); BUN 15 mg/dL (7-18); BUN/Creat Ratio 16.9 RATIO (10-20); Calcium,Total 8.8 mg/dL (8.5-10.1); Chloride 108 mmol/L (98-107); Creatinine, Serum 0.89 mg/dL (0.70-1.30); EST Glomerular Filtration Rate 87 mL/min (>60); Est Glom Filt Rate - Afr Amer 105 mL/min (>60); Globulin 3.5 g/dL (2.2-4.2); Glucose 95 mg/dL (74-106); Potassium 4.3 mmol/L (3.5-5.1); Sodium Level 139 mmol/L (136-145)
[2024-02-20 11:55] LABS: Vitamin D,25 Hydroxy 45.3 ng/mL
== END | disposition home or self-care (01) ==
LOC: POLAB3 10:41
PROVIDERS: PCP Family Medicine Geriatric Medicine; Visit Provider Family Medicine Geriatric Medicine
DX: R53.83 Other fatigue (principal); E55.9 Vitamin D deficiency, unspecified
CPT/HCPCS: 36415; 80053; 82306; 84443; 85025

== ENCOUNTER → 2024-04-21 | Outpatient (CLI) | payer MEDICARE, OTHER, SELFPAY ==
[2024-04-21 15:28] LABS: PSA,Total - Annual Screen 4.78 ng/mL (0.00-4.00)
== END | disposition home or self-care (01) ==
LOC: LAB 14:40
PROVIDERS: PCP Family Medicine Geriatric Medicine; Referring Provider Urology; Visit Provider Urology
DX: Z12.5 Encounter for screening for malignant neoplasm of prostate (principal)
CPT/HCPCS: 36415; 84153; G0103

== ENCOUNTER → 2024-08-18 | Outpatient (CLI) | payer MEDICARE, OTHER, SELFPAY ==
--- NOTE | 2024-08-18 12:02 | CT_ITS ---
PROCEDURE: ABDOMEN/PELVIS WITH CONTRAST REASON FOR EXAM: Unspecified abdominal pain TECHNIQUE: Abdomen and pelvis CT with intravenous contrast. IV CONTRAST: COMPARISON: 06/18/2022. FINDINGS: Lung bases: Mild dependent atelectasis Liver: Diffuse fatty infiltration. Gallbladder: Surgically absent. Spleen: Unremarkable. Pancreas: Unremarkable. Adrenals: Unremarkable. Kidneys: Prominent left renal pelvis. Subcentimeter renal cysts, bilaterally. Bladder: Unremarkable. Reproductive Organs: Hysterectomy Bowel: Colonic diverticulosis without diverticulitis. Appendix: Normal. Lymph nodes: No suspicious lymph node enlargement. Vasculature: Mild diffuse atherosclerotic calcifications are noted. Peritoneum / Retroperitoneum: No ascites. No free air. Bones: Degenerative changes of the spine. 5 mm anterolisthesis of L4 on L5. CT/Abdomen/Pelvis WITH Contrast IMPRESSION: 1. No acute abnormality in the abdomen and pelvis. 2. Hepatic steatosis 3. Grade 1 anterolisthesis of L4 on L5. 4. Other findings as above. One or more dose reduction techniques were used (e.g., Automated exposure contr ol, adjustment of the mA and/or kV according to patient size, use of iterative reconstruction technique). Reading Location: [facility]
[2024-08-18 12:45] LABS: Absolute Lymphocyte Count 1.11 X10^3/uL (0.83-4.51); Absolute Neutrophil Count 3.6 X10^3/uL (2.0-7.7); Basophil# 0.01 X10^3/uL; Basophil% 0.2 % (0-1); Eosinophil# 0.01 X10^3/uL; Eosinophils% 0.2 % (0-5); Hematocrit 42.4 % (40-54); Hemoglobin 14.1 g/dL (13.0-16.5); Lymphocyte # 1.11 X10^3/ul (0.83-4.51); Lymphocyte % 20.8 % (19-41); Mean Corp Hgb Conc 33.3 g/dL (32-36); Mean Corpuscular Hgb 32.3 pg (27.0-32.0); Mean Corpuscular Volume 97.2 fL (80-94); Mean Platelet Vol. 9.3 fl (6.2-12.0); Monocyte# 0.57 X10^3/uL; Monocyte% 10.7 % (0-10); NRBC Flagged by Analyzer 0 % (0-5); Neutrophil # 3.62 X10^3/uL (2.7-7.7); Neutrophil % 67.7 % (47-70); Platelet Count 221 K/mm3 (150-450); RBC Distribution Width CV 12.5 % (11.6-14.6); RBC Distribution Width SD 44.8 fl (35.1-43.9); Red Blood Count 4.36 M/mm3 (4.6-6.2); White Blood Count 5.3 K/mm3 (4.4-11.0)
[2024-08-18 13:20] LABS: ALB/GLOB Ratio 0.9 RATIO (0.9-2.4); AST(SGOT) 18 U/L (15-37); Alanine Aminotransfer ALT/SGPT 16 U/L (16-61); Albumin, Serum 3.5 g/dL (3.2-5.0); Alkaline Phosphatase 103 U/L (45-117); Anion Gap 7 (5-15); BUN 15 mg/dL (7-18); CPK Total, Creatine Kinase 65 U/L (39-308); Calcium,Total 8.9 mg/dL (8.5-10.1); Chloride 104 mmol/L (98-107); Creatinine, Serum 0.94 mg/dL (0.70-1.30); EST Glomerular Filtration Rate 82 mL/min (>60); Est Glom Filt Rate - Afr Amer 99 mL/min (>60); Globulin 3.9 g/dL (2.2-4.2); Glucose 92 mg/dL (74-106); Protein, Total 7.4 g/dL (6.4-8.2); Sodium Level 137 mmol/L (136-145); Troponin-I HS 4 pg/mL (3.0-78.0)
[2024-08-20 04:07] LABS: Myoglobin, Serum 47 ng/mL (28-72)
== END | disposition home or self-care (01) ==
LOC: CT 12:00
PROVIDERS: PCP Family Medicine Geriatric Medicine; Referring Provider Family Medicine Geriatric Medicine; Visit Provider Family Medicine Geriatric Medicine
DX: R10.9 Unspecified abdominal pain (principal); R07.9 Chest pain, unspecified
CPT/HCPCS: 36415; 74177; 80053; 82550; 83874; 84484; 85025; Q9967

== ENCOUNTER → 2024-08-25 | Outpatient (CLI) | payer MEDICARE, OTHER, SELFPAY ==
--- NOTE | 2024-08-25 12:04 | RAD_ITS ---
PROCEDURE: THORACIC SPINE 3 VIEWS REASON FOR EXAM: Thoracic radiculopathy. TECHNIQUE: AP and lateral view COMPARISON: None. FINDINGS: Normal vertebral heights. No evidence of fracture. Mild multilevel disc space narrowing. Normal alignment. No spondylolisthesis. Hyperinflation of the lungs. RAD/Thoracic Spine 3 Views IMPRESSION: Multilevel disc space narrowing and spondylosis. Reading Location: [facility]
[2024-08-25 12:05] LABS: Absolute Lymphocyte Count 1.24 X10^3/uL (0.83-4.51); Absolute Neutrophil Count 3.6 X10^3/uL (2.0-7.7); Basophil# 0.02 X10^3/uL; Basophil% 0.4 % (0-1); Eosinophil# 0.16 X10^3/uL; Eosinophils% 2.8 % (0-5); Hematocrit 40.8 % (40-54); Hemoglobin 13.4 g/dL (13.0-16.5); Lymphocyte # 1.24 X10^3/ul (0.83-4.51); Lymphocyte % 21.9 % (19-41); Mean Corp Hgb Conc 32.8 g/dL (32-36); Mean Corpuscular Hgb 32.2 pg (27.0-32.0); Mean Corpuscular Volume 98.1 fL (80-94); Mean Platelet Vol. 9.8 fl (6.2-12.0); Monocyte# 0.58 X10^3/uL; Monocyte% 10.3 % (0-10); NRBC Flagged by Analyzer 0 % (0-5); Neutrophil # 3.62 X10^3/uL (2.7-7.7); Neutrophil % 64.1 % (47-70); Platelet Count 201 K/mm3 (150-450); RBC Distribution Width CV 12.6 % (11.6-14.6); RBC Distribution Width SD 45.4 fl (35.1-43.9); Red Blood Count 4.16 M/mm3 (4.6-6.2); White Blood Count 5.7 K/mm3 (4.4-11.0)
[2024-08-25 12:35] LABS: Vitamin D,25 Hydroxy 48.9 ng/mL
[2024-08-25 19:13] LABS: AST(SGOT) 16 U/L (15-37); Alanine Aminotransfer ALT/SGPT 14 U/L (16-61); Albumin, Serum 3.6 g/dL (3.2-5.0); Alkaline Phosphatase 89 U/L (45-117); Anion Gap 4 (5-15); BUN 15 mg/dL (7-18); BUN/Creat Ratio 17.3 RATIO (10-20); Calcium,Total 8.4 mg/dL (8.5-10.1); Chloride 105 mmol/L (98-107); Creatinine, Serum 0.86 mg/dL (0.70-1.30); EST Glomerular Filtration Rate 90 mL/min (>60); Est Glom Filt Rate - Afr Amer 108 mL/min (>60); Globulin 3.6 g/dL (2.2-4.2); Glucose 90 mg/dL (74-106); Potassium 3.7 mmol/L (3.5-5.1); Protein, Total 7.2 g/dL (6.4-8.2); Sodium Level 137 mmol/L (136-145)
== END | disposition home or self-care (01) ==
PROVIDERS: PCP Family Medicine Geriatric Medicine; Referring Provider Family Medicine Geriatric Medicine; Visit Provider Family Medicine Geriatric Medicine
DX: M54.14 Radiculopathy, thoracic region (principal); R53.83 Other fatigue; E55.9 Vitamin D deficiency, unspecified
CPT/HCPCS: 36415; 72072; 80053; 82306; 84443; 85025

== ENCOUNTER → 2025-02-17 | Outpatient (CLI) | payer MEDICARE, OTHER, SELFPAY ==
[2025-02-17 11:37] LABS: Hematocrit 39.5 % (40-54); Hemoglobin 13.3 g/dL (13.0-16.5); Immature Granulocytes Count 0.010 X10^3/uL (0.0-0.0); Mean Corp Hgb Conc 33.7 g/dL (32-36); Mean Corpuscular Volume 98.3 fL (80-94); Mean Platelet Vol. 9.6 fl (6.2-12.0); NRBC Flagged by Analyzer 0 % (0-5); Platelet Count 228 K/mm3 (150-450); RBC Distribution Width CV 12.6 % (11.6-14.6); RBC Distribution Width SD 46.0 fl (35.1-43.9); Red Blood Count 4.02 M/mm3 (4.6-6.2); White Blood Count 5.0 K/mm3 (4.4-11.0)
[2025-02-17 12:39] LABS: AST(SGOT) 17 U/L (<=37); Alanine Aminotransfer ALT/SGPT 12 U/L (<=46); Albumin, Serum 4.0 g/dL (3.4-4.8); Alkaline Phosphatase 96 U/L (40-129); Anion Gap 9 (5-15); BUN 12 mg/dL (4-19); BUN/Creat Ratio 12.8 RATIO (10-20); Calcium,Total 9.1 mg/dL (7.6-11.0); Carbon Dioxide 25.4 mmol/L (21.0-32.0); Chloride 105 mmol/L (98-108); Globulin 2.9 g/dL (2.2-4.2); Glucose 90 mg/dL (70-99); Potassium 4.3 mmol/L (3.3-5.1); Vitamin D,25 Hydroxy 42.4 ng/mL (30-100)
[2025-02-17 19:25] LABS: Xtra Tube Kwok EXTRA TUBE
--- OUTSIDE RECORDS SUMMARY | 2025-02-17 20:07 | XMS RPT_ITS | CCD ---
Author Organization [facility] Care Team Providers Care Salon Manager Name Role Phone Dr. Kyaw Arvizu Chi Primary Care Provider Dr. Kyaw Arvizu Chi Referring Provider [phone] [place], [place] Shelbi Lennon Attending Provider Dr. Julien Nguyen Emergency Provider Dr. Brendon Dawson Admit Provider [phone] Brendon Dawson Other Provider Dr. Lemuel Escudero Attending Provider Kenan, Kyaw Chi Primary Care Provider BRENDON DAWSON Referring Unavailable LEIGHABRENDON Attending Unavailable KENAN, KYAW CHI Primary Care Unavailable Kenan, Kyaw Chi Primary Care Unavailable Paul, Mario Referring Unavailable Paul, Mario Attending Unavailable Kenan, Kyaw Chi Primary Care Unavailable Kenan, Kyaw Chi Referring Unavailable Kenan, Kyaw Chi Attending Unavailable Kenan, Kyaw Chi Attending Unavailable Kenan, Kyaw Chi Primary Care Unavailable Kenan, Kyaw Chi Referring Unavailable Kenan, Kyaw Chi Attending Unavailable Kenan, Kyaw Chi Primary Care Unavailable Kenan, Kyaw Chi Attending Unavailable Kenan, Kyaw Chi Primary Care Unavailable Kenan, Kyaw Chi Primary Care Unavailable Kenan, Kyaw Chi Referring Unavailable Kenan, Kyaw Chi Attending Unavailable Kenan Dr. Kyaw DESAI Chi Primary Care Provider Kenan DESAI, Dr. Kyaw Bridges Attending Provider [phone] Dr. Kyaw Arvizu MD, Chi Referring Provider Allergies Allergy Classification Reported Allergen(s) Allergy Type Date of Onset Reaction(s) Facility (6 sources) venom-honey bee Allergy to substance 1 Rash [facility] (1 source) bee stings [Other] Propensity to adverse reactions 7 Mental Status Change, Hives [facility] Work Phone: (1 source) OTHER; Translations: [OTHER] Propensity to adverse reactions (disorder) 7 [facility] (1 source) venom-honey bee Drug allergy (disorder) 2 [facility] Repository Medications Current Medications Medication Drug Class(es) Dates Sig (Normalized) Sig (Original) Antiarthritic Combination No.2 (3 sources) Start: 10-02-2014 take 1000 mg by mouth twice daily Antiarthritic Combination No.2 Active 1000 MG PO TWICE A DAY October 02, 2014 12:00am aspirin 81 mg chewable tablet (4 sources) Platelet Aggregation Inhibitor, Nonsteroidal Anti-inflammatory Drug Start: 10-02-2014 take 81 mg by mouth once daily Aspirin Active 81 MG PO DAILY@0800 October 02, 2014 12:00am Start: 02-13-2008 aspirin(ADULT LOW DOSE ASPIRIN 81 MG TAB, DELAYED RELEASE) Take one(1) tablet daily. 0 02/13/2008 Active Comment on above: Take one(1) tablet d aily. glucosamine sulfate 500 mg oral tablet (3 sources) Start: 2 take 1 tablet by mouth once daily Glucosamine Sulfate (Glucosamine) 500 mg Tablet Active 500 mg PO DAILY June 18, 2022 12:00am administer with a meal Multivitamin preparation (3 sources) Start: 5 take 1 tablet by mouth once daily Multivitamin Active 1 TABLET PO DAILY October 02, 2014 12:00am tamsulosin hydrochloride 0.4 mg oral capsule (3 sources) alpha-Adrenergic Segundo Start: 6 take 1 capsule by mouth once daily Tamsulosin 0.4 mg capsule Active 0.4 mg PO DAILY June 19, 2022 12:00am Comment on above: Take 1 capsule by [facility] once daily. Completed/Discontinued Medications Medication Drug Class(es) Dates Sig (Normalized) Sig (Original) cephalexin 500 mg oral capsule (6 sources) Cephalosporin Antibacterial Start: 09-20-2020 End: 04-30-2022 take 1 capsule by mouth three times daily Cephalexin 500 mg capsule Discontinued 500 mg PO THREE TIMES A DAY September 19, 2020 11:00pm April 30, 2022 11:54am chondroitin sulfates 400 mg / glucosamine hydrochloride 500 mg oral capsule (1 source) Start: 08-16-2006 GLUCOSAMINE CHONDROITIN MAXSTR 500 MG-400 MG CAP One capsule 2 times daily 0 08/16/2006 Active Comment on above: One capsule 2 times daily finasteride 5 mg oral tablet (1 source) 5-alpha Reductase Inhibitor Start: 05-08-2016 take 1 tablet by mouth once daily finasteride (PROSCAR) 5 mg tablet Take 1 tablet by mouth once daily. 90 tablet 4 05/08/2016 Active Comment on above: Take 1 tablet by jj th once daily. MULTI-VITAMIN ORAL (1 source) MULTI-VITAMIN ORAL Take by mouth. 0 Active Comment on above: Take by mouth. ondansetron 4 mg disintegrating oral tablet (9 sources) Serotonin-3 Receptor Antagonist Start: 06-18-2022 End: 06-21-2022 take 1 tablet by mouth every six hours as needed for nausea and vomiting Ondansetron 4 mg tablet,disintegra ting Discontinued 4 mg PO EVERY 6 HOURS as needed for nausea and vomiting June 18, 2022 12:00am June 21, 2022 11:00am Start: 09-27-2017 End: 04-30-2022 take 1 tablet by mouth twice daily Ondansetron Hcl 4 MG tablet Discontinued 4 mg PO TWICE A DAY September 26, 2017 11:00pm April 30, 2022 11:54am phenazopyridine hydrochloride 200 mg oral tablet (1 source) Start: 12-09-2014 take 1 tablet by mouth every eight hours as needed phenazopyridine (PYRIDIUM) 200 mg tablet Take 1 tablet by mouth three times daily as needed. 90 tablet 4 12/09/2014 Active Comment on above: Take 1 tablet by jj th three times daily as needed. Problems Active Problems Problem Classification Problem Date Documented Date Episodic/Chronic Abdominal pain (5 sources) Lower abdominal pain; Translations: [Right lower quadrant pain] Onset: 08-30-2024 Episodic Crushing injury or internal injury (6 sources) Crush injury of right index finger; Translations: [Crushing injury of right index finger, sequela] 09-30-2020 Episodic Hyperplasia of prostate (2 sources) Benign prostatic hypertrophy with outflow obstruction; Translations: [Benign prostatic hyperplasia with lower urinary tract symptoms] Onset: 08-17-2008 08-17-2008 Chronic Intestinal obstruction without hernia (4 sources) Partial obstruction of small bowel; Translations: [Partial intestinal obstruction, unspecified as to cause] Episodic Nausea and vomiting (4 sources) Nausea and vomiting; Translations: [Nausea with vomiting, unspecified] Episodic Noninfectious gastroenteritis (3 sources) Gastroenteritis; Translations: [Noninfective gastroenteritis and colitis, unspecified] 06-26-2022 Episodic Other diseases of bladder and urethra (1 source) Bladder neck obstruction; 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] Onset: 08-17-2008 08-17-2008 Chronic Other upper respiratory infections (5 sources) Acute sinusitis; Translations: [Acute sinusitis, unspecified] Episodic Spondylosis; intervertebral disc disorders; other back problems (1 source) Radiculopathy, thoracic region; Translations: [Radiculopathy, thoracic region] Onset: 09-05-2024 Episodic Past or Other Problems Problem Classification Problem Date Documented Da te Episodic/Chronic Genitourinary symptoms and ill-defined conditions (2 sources) Retention of urine; Translations: [Retention of urine, unspecified] Onset: 10-29-2014 10-29-2014 Episodic Inflammatory conditions of male genital organs (1 source) Prostatitis; Translations: [Inflammatory disease of prostate, unspecified] Onset: 12-09-2014 12-09-2014 Episodic Malaise and fatigue (1 source) Other fatigue; Translations: [Other fatigue] Onset: 03-05-2024 Episodic Other gastrointestinal disorders (1 source) Diarrhea, unspecified; Translations: [Diarrhea, unspecified] Onset: 01-09-2024 Episodic Other male genital disorders (1 source) History of prostatitis; Translations: [Personal history of other diseases of male genital organs] Onset: 10-29-2014 10-29-2014 Episodic Other screening for suspected conditions (not mental disorders or infectious disease) (1 source) Encounter for screening for malignant neoplasm of prostate; Translations: [Encounter for screening for malignant neoplasm of prostate] Onset: 05-10-2024 Episodic Residual codes; unclassified (1 source) Chills (without fever); Translations: [Chills (without fever)] Onset: 11-19-2023 Episodic Results Test Name Value Interpretation Reference Range Facility [id number] DOrdered By: Kale Arvizu on 08-25-2024 Vitamin D 25-Hydroxy 48.9 ng/mL [facility] Comment on above: Vitamin D 25(OH) Sta tus Range Deficiency <20 ng/mL (50nmol/L) Insufficiency 20 - 30 ng/mL (50 - 75 nmol/L) Sufficiency 30 - 100 ng/mL (75 - 250 nmol/L) Toxicity >100 ng/mL (>250 nmol/L) Absolute neutrophil countOrd ered By: Kyaw Arvizu on 08-25-2024 Neutrophils (Bld) [#/Vol] 3.6 10*3/uL 2.0-7.7 [facility] Albumin to globulin ratioOrd ered By: Kyaw Arvizu on 08-25-2024 Albumin/Globulin [Mass ratio] 1.0 {ratio} 0.9-2.4 [facility] Basophil percentageOrdered B y: Kyaw Arvizu on 08-25-2024 Basophils/100 WBC (Bld) 0.4 % 0-1 [facility] Bilirubin, totalOrdered By: Kyaw Arvizu on 08-25-2024 Bilirubin [Mass/Vol] 0.50 mg/dL 0.20-1.00 [facility] Comment on above: For patients on eltr ombopag therapy, use of Dimension [place] TBIL is not recommended. Blood urea nitrogen (BUN)/cr eatinine ratioOrdered By: Kyaw Arvizu on 08-25-2024 Urea nitrogen/Creatinine [Mass ratio] 17.3 mg/mg 10-20 [facility] CBC W/Diff, Automatedon 08-03 Absolute Lymph 1.24 X10 3/uL Normal 0.83-4.51 [facility] Comment on above: Performed By: #### L 506.1000, L501.9520, L100.0100, L500.4050 #### [facility] [address] [place], [place], [id number] Absolute Neut 3.6 X10 3/uL Normal 2.0-7.7 [facility] Comment on above: Performed By: #### L 506.1000, [id number], L100.0100, [id number] #### [facility] [address] [place], [address] Basophils/100 WBC (Bld) 0.4 % Normal 0-1 [facility] Comment on above: Performed By: #### L 506.1000, [id number], L100.0100, [id number] #### [facility] [address] [place], [address] Eosinophils/100 WBC (Bld) 2.8 % Normal 0-5 [facility] Comment on above: Performed By: #### L 506.1000, [id number], L100.0100, L500.4050 #### [facility] [address] [place], [address] Erythrocyte distribution width (RBC) [Ratio] 12.6 % Normal 11.6-14.6 [facility] Comment on above: Performed By: #### L 506.1000, [id number], L100.0100, L500.4050 #### [facility] [address] [place], [address] Hematocrit (Bld) [Volume fraction] 40.8 % Normal 40-54 [facility] Comment on above: Performed By: #### L 506.1000, [id number], L100.0100, L500.4050 #### [facility] [address] [place], [address] Hemoglobin (Bld) [Mass/Vol] 13.4 g/dL Normal 13.0-16.5 [facility] Comment on above: Performed By: #### L 506.1000, [id number], L100.0100, L500.4050 #### [facility] [address] [place], [address] IG% 0.500 Normal 0.0-0.9 [facility] Comment on above: Result Comment: IG% - Immature Granulocytes (promyelocytes, myelocytes and metamyelocytes) > 1% indicates that a LEFT SHIFT is Present. Performed By: #### L 506.1000, L501.9520, L100.0100, L500.4050 #### [facility] [address] [place], [address] Lymphocytes/100 WBC (Bld) 21.9 % Normal 19-41 [facility] Comment on above: Performed By: #### L 506.1000, [id number], L100.0100, L500.4050 #### [facility] [address] [place], [address] MCH (RBC) [Entitic mass] 32.2 pg High 27.0-32.0 [facility] Comment on above: Performed By: #### L 506.1000, [id number], L100.0100, L500.4050 #### [facility] [address] [place], [address] MCHC (RBC) [Mass/Vol] 32.8 g/dL Normal 32-36 [facility] Comment on above: Performed By: #### L 506.1000, L501.9520, L100.0100, L500.4050 #### [facility] [address] [place], [address] MCV (RBC) [Entitic vol] 98.1 fL High 80-94 [facility] Comment on above: Performed By: #### L 506.1000, [id number], L100.0100, L500.4050 #### [facility] [address] [place], [address] Monocytes/100 WBC (Bld) 10.3 % High 0-10 [facility] Comment on above: Performed By: #### L 506.1000, [id number], L100.0100, L500.4050 #### [facility] [address] [place], [address] Neutrophils/100 WBC (Bld) 64.1 % Normal 47-70 [facility] Comment on above: Performed By: #### L 506.1000, [id number], L100.0100, L500.4050 #### [facility] [address] [place], [address] Nucleated RBC (Bld) [#/Vol] 0 10*3/uL Normal 0-5 [facility] Comment on above: Performed By: #### L 506.1000, [id number], L100.0100, L500.4050 #### [facility] [address] [place], [address] Platelet mean volume (Bld) [Entitic vol] 9.8 fL Normal 6.2-12.0 [facility] Comment on above: Performed By: #### L 506.1000, [id number], L100.0100, L500.4050 #### [facility] [address] [place], [address] Platelets (Bld) [#/Vol] 201 10*3/uL Normal 150-450 [facility] Comment on above: Performed By: #### L 506.1000, [id number], L100.0100, L500.4050 #### [facility] [address] [place], [address] RBC (Bld) [#/Vol] 4.16 10*6/uL Low 4.6-6.2 [facility] Comment on above: Performed By: #### L 506.1000, [id number], L100.0100, L500.4050 #### [facility] [address] [place], [address] RDW SD 45.4 fl High 35.1-43.9 [facility] Comment on above: Performed By: #### L 506.1000, [id number], L100.0100, L500.4050 #### [facility] [address] [place], [address] WBC (Bld) [#/Vol] 5.7 10*3/uL Normal 4.4-11.0 [facility] Comment on above: Performed By: #### L 506.1000, [id number], L100.0100, L500.4050 #### [facility] [address] [place], [address] Carbon dioxide measurementOr dered By: Kyaw Arvizu on 08-25-2024 CO2 [Moles/Vol] 28.0 mmol/L 21.0-32.0 [facility] Chloride measurementOrdered By: Kyaw Arvizu on 08-25-2024 Chloride [Moles/Vol] 105 mmol/L 98-107 [facility] Comprehensive Metabolic Prof ilon 08-25-2024 Albumin [Mass/Vol] 3.6 g/dL Normal 3.2-5.0 [facility] Comment on above: Performed By: #### L 506.1000, L501.9520, L100.0100, L500.4050 #### [facility] [address] [place], [address] Albumin/Globulin [Mass ratio] 1.0 {ratio} Normal 0.9-2.4 [facility] Comment on above: Performed By: #### L 506.1000, [id number], L100.0100, L500.4050 #### [facility] [address] [place], [address] ALK P 89 U/L Normal 45-117 [facility] Comment on above: Performed By: #### L 506.1000, [id number], L100.0100, L500.4050 #### [facility] [address] [place], [address] ALT [Catalytic activity/Vol] 14 U/L Low 16-61 [facility] Comment on above: Performed By: #### L 506.1000, [id number], L100.0100, L500.4050 #### [facility] [address] [place], [address] AST [Catalytic activity/Vol] 16 U/L Normal 15-37 [facility] Comment on above: Performed By: #### L 506.1000, L501.9520, L100.0100, L500.4050 #### [facility] [address] [place], [address] Bilirubin [Mass/Vol] 0.50 mg/dL Normal 0.20-1.00 [facility] Comment on above: Result Comment: For patients on eltrombopag therapy, use of Dimension [place] TBIL is not recommended. Performed By: #### L 506.1000, [id number], L100.0100, L500.4050 #### [facility] [address] [place], [address] BUN/CRE 17.3 RATIO Normal 10-20 [facility] Comment on above: Performed By: #### L 506.1000, [id number], L100.0100, L500.4050 #### [facility] [address] [place], [address] CA,Total 8.4 mg/dL Low 8.5-10.1 [facility] Comment on above: Performed By: #### L 506.1000, [id number], L100.0100, L500.4050 #### [facility] [address] [place], [address] Chloride [Moles/Vol] 105 mmol/L Normal 98-107 [facility] Comment on above: Performed By: #### L 506.1000, L501.9520, L100.0100, L500.4050 #### [facility] [address] [place], [address] CO2 [Moles/Vol] 28.0 mmol/L Normal 21.0-32.0 [facility] Comment on above: Performed By: #### L 506.1000, L501.9520, L100.0100, L500.4050 #### [facility] [address] [place], [address] Creatinine [Mass/Vol] 0.86 mg/dL Normal 0.70-1.30 [facility] Comment on above: Result Comment: The validity of the calculated GFR GFRAA in patients over 70 years has not been determined. Clinical correlation is essential. Performed By: #### L 506.1000, L501.9520, L100.0100, L500.4050 #### [facility] [address] [place], [address] EST GFR - AA 108 mL/min Normal >60 [facility] Comment on above: Result Comment: Afri can Iraqi GFR Calc Performed By: #### L 506.1000, L501.9520, L100.0100, L500.4050 #### [facility] [address] [place], [address] GAP 4 Low 5-15 [facility] Comment on above: Performed By: #### L 506.1000, L501.9520, L100.0100, L500.4050 #### [facility] [address] [place], [address] GFR/1.73 sq M.predicted among non-blacks MDRD (S/P/Bld) [Vol rate/Area] 90 mL/min/{1.73_m2} Normal >60 [facility] Comment on above: Result Comment: Non- GFR Calc Performed By: #### L 506.1000, L501.9520, L100.0100, L500.4050 #### [facility] [address] [place], [address] Globulin (S) [Mass/Vol] 3.6 g/dL Normal 2.2-4.2 [facility] Comment on above: Performed By: #### L 506.1000, L501.9520, L100.0100, L500.4050 #### [facility] [address] [place], [address] Glucose [Mass/Vol] 90 mg/dL Normal 74-106 [facility] Comment on above: Performed By: #### L 506.1000, L501.9520, L100.0100, L500.4050 #### [facility] [address] [place], [address] Potassium [Moles/Vol] 3.7 mmol/L Normal 3.5-5.1 [facility] Comment on above: Performed By: #### L 506.1000, L501.9520, L100.0100, L500.4050 #### [facility] [address] [place], [address] Sodium [Moles/Vol] 137 mmol/L Normal 136-145 [facility] Comment on above: Performed By: #### L 506.1000, L501.9520, L100.0100, L500.4050 #### [facility] [address] [place], [address] T PROT 7.2 g/dL Normal 6.4-8.2 [facility] Comment on above: Performed By: #### L 506.1000, L501.9520, L100.0100, L500.4050 #### [facility] [address] [place], [address] Urea nitrogen [Mass/Vol] 15 mg/dL Normal 7-18 [facility] Comment on above: Performed By: #### L 506.1000, L501.9520, L100.0100, L500.4050 #### [facility] [address] [place], [address] Eosinophil percentageOrdered By: Kyaw Arvizu 08-25-2024 Eosinophils/100 WBC (Bld) 2.8 % 0-5 [facility] Erythrocyte distribution wid th ratioOrdered By: Kyaw Arvizu 08-25-2024 Erythrocyte distribution width (RBC) [Ratio] 12.6 % 11.6-14.6 [facility] Erythrocyte distribution wid th standard deviationOrdered By: Kyaw Arvizu 08-25-2024 Erythrocyte distribution width (RBC) [Entitic vol] 45.4 fL High 35.1-43.9 [facility] Estimated glomerular filtrat ion rate (GFR) AmericanOrdered By: Kyaw Arvizu 08-25-2024 Estimated GFR (MDRD) Amer 108 mL/min >60 [facility] Comment on above: GFR Calc Glomerular filtration rate ( GFR) estimationOrdered By: Kyaw Arvizu 08-25-2024 Estimated GFR (MDRD) Non-Af Amer 90 mL/min >60 [facility] Comment on above: Non- GFR Calc Glucose measurementOrdered B y: Kyaw Arvizu on 08-25-2024 Glucose [Mass/Vol] 90 mg/dL 74-106 [facility] Hematocrit Auto (Bld) [Volum e fraction]Ordered By: Kyaw Arvizu 08-25-2024 Hematocrit (Bld) [Volume fraction] 40.8 % 40-54 [facility] Hemoglobin measurementOrdere d By: Kyaw Arvizu 08-25-2024 Hemoglobin (Bld) [Mass/Vol] 13.4 g/dL 13.0-16.5 [facility] Immature granulocytes/100 WB C Auto (Bld)Ordered By: Kyaw Arvizu 08-25-2024 Immature granulocytes/100 WBC (Bld) 0.500 % 0.0-0.9 [facility] Comment on above: IG% - Immature Granu locytes (promyelocytes, myelocytes and metamyelocytes) > 1% indicates that a LEFT SHIFT is Present. Laboratory - Chemistry and C hemistry - challengeOrdered By: Kyaw Arvizu 08-25-2024 AST [Catalytic activity/Vol] 16 U/L 15-37 [facility] Lymphocytes Auto (Unsp spec) [#/Vol]Ordered By: Kyaw Arvizu 08-25-2024 Lymphocytes (Bld) [#/Vol] 1.24 10*3/uL 0.83-4.51 [facility] Lymphocytes/100 WBC Auto (Un sp spec)Ordered By: Kyaw Arvizu on 08-25-2024 Lymphocytes/100 WBC (Bld) 21.9 % 19-41 [facility] MCV (mean corpuscular volume ) determinationOrdered By: Kyaw Arvizu on 08-25-2024 MCV (RBC) [Entitic vol] 98.1 fL High 80-94 [facility] Mean corpuscular hemoglobin (MCH) determinationOrdered By: Kyaw Arvizu on 08-25-2024 MCH (RBC) [Entitic mass] 32.2 pg High 27.0-32.0 [facility] Mean corpuscular hemoglobin concentration (MCHC) determinationOrdered By: Kyaw Arvizu on 08-25-2024 MCHC (RBC) [Mass/Vol] 32.8 g/dL 32-36 [facility] Mean platelet volume determi nationOrdered By: Kyaw Arvizu on 08-25-2024 Platelet mean volume (Bld) [Entitic vol] 9.8 fL 6.2-12.0 [facility] Monocyte percentageOrdered B y: Kyaw Arvizu on 08-25-2024 Monocytes/100 WBC (Bld) 10.3 % High 0-10 [facility] Neutrophil percentageOrdered By: Kyaw Arvizu on 08-25-2024 Neutrophils/100 WBC (Bld) 64.1 % 47-70 [facility] Nucleated red blood cell per centageOrdered By: Kyaw Arvizu on 08-25-2024 Nucleated RBC/100 WBC (Bld) [Ratio] 0 % 0-5 [facility] Platelet countOrdered By: Edward Arvizu on 08-25-2024 Platelets (Bld) [#/Vol] 201 10*3/uL 150-450 [facility] Potassium measurementOrdered By: Kyaw Arvizu on 08-25-2024 Potassium [Moles/Vol] 3.7 mmol/L 3.5-5.1 [facility] RBC Auto (Bld) [#/Vol]Ordere d By: Kyaw Arvizu on 08-25-2024 RBC (Bld) [#/Vol] 4.16 10*6/uL Low 4.6-6.2 [facility] Serum anion gap measurementO rdered By: Kyaw Arvizu on 08-25-2024 Anion gap [Moles/Vol] 4 mmol/L Low 5-15 [facility] Serum globulin measurementOr dered By: Kyaw Arvizu 08-25-2024 Globulin (S) [Mass/Vol] 3.6 g/dL 2.2-4.2 [facility] Serum or plasma alanine hwang otransferase (ALT) measurementOrdered By: Kyaw Arvizu 08-25-2024 ALT [Catalytic activity/Vol] 14 U/L Low 16-61 [facility] Serum or plasma albumin jovita urement (mass/volume)Ordered By: Kyaw Arvizu 08-25-2024 Albumin [Mass/Vol] 3.6 g/dL 3.2-5.0 [facility] Serum or plasma alkaline rajat sphatase measurementOrdered By: Kyaw Arvizu 08-25-2024 ALP [Catalytic activity/Vol] 89 U/L 45-117 [facility] Serum or plasma calcium jovita urement (mass/volume)Ordered By: Kyaw Arvizu 08-25-2024 Calcium [Mass/Vol] 8.4 mg/dL Low 8.5-10.1 [facility] Serum or plasma creatinine m easurement (mass/volume)Ordered By: Kyaw Arvizu 08-25-2024 Creatinine [Mass/Vol] 0.86 mg/dL 0.70-1.30 [facility] Comment on above: The validity of the calculated GFR & GFRAA in patients over 70 years has not been determined. Clinical correlation is essential. Serum or plasma urea nitroge n measurement (mass/volume)Ordered By: Kyaw Arvizu 08-25-2024 Urea nitrogen [Mass/Vol] 15 mg/dL 7-18 [facility] Sodium levelOrdered By: Kyaw Arvizu 08-25-2024 Sodium [Moles/Vol] 137 mmol/L 136-145 [facility] TSH QnOrdered By: Kyaw Arvizu o n 08-25-2024 Thyroid Stimulating Hormone (TSH) 1.870 uIU/mL 0.358-3.740 [facility] Thoracic Spine 3 Viewson Thoracic Spine 3 Views [facility] Imaging Services [address] [place], [place] [address] Thoracic Spine 3 Views MR#: [id number] Acct: [id number] Name: EMY PERAZA Rep #: [id number] : 1940 M 84 From: Ian cifuentes MD PCP: Dr. Kyaw Arvizu MD Status: REG CLI Study: Thoracic Spine 3 Views Date of Exam: 08/25/24 Exam# [id number] Ordering Dr: Kyaw Arvizu MD PROCEDURE: THORACIC SPINE 3 VIEWS REASON FOR EXAM: Thoracic radiculopathy. TECHNIQUE: AP and lateral view COMPARISON: None. FINDINGS: Normal vertebral heights. No evidence of fracture. Mild multilevel disc space narrowing. Normal alignment. No spondylolisthesis. Hyperinflation of the lungs. RAD/Thoracic Spine 3 Views IMPRESSION: Multilevel disc space narrowing and spondylosis. Reading Location: [id number] CC: Dr. Kyaw Arvizu MD Shoe Associate: Signed Normal [facility] Thyroid Stim Hormone (TSH)on 08-25-2024 TSH 1.870 uIU/mL Normal 0.358-3.740 [facility] Comment on above: Performed By: #### L 506.1000, L501.9520, L100.0100, L500.4050 #### [facility] Laboratory [address] [facility] [place], [address] Total proteinOrdered By: Kyaw Arvizu on 08-25-2024 Protein [Mass/Vol] 7.2 g/dL 6.4-8.2 [facility] Vitamin D,25 Hydroxyon 08-25 Vitamin D 25-OH 48.9 ng/mL Normal [facility] Comment on above: Result Comment: Phyllis min D 25(OH) Status Range Deficiency <20 ng/mL (50nmol/L) Insufficiency 20 - 30 ng/mL (50 - 75 nmol/L) Sufficiency 30 - 100 ng/mL (75 - 250 nmol/L) Toxicity >100 ng/mL (>250 nmol/L) Performed By: #### L 506.1000, L501.9520, L100.0100, L500.4050 #### [facility] Laboratory [address] [place], [address] White blood cell (WBC) count Ordered By: Kyaw Arvizu on 08-25-2024 WBC (Bld) [#/Vol] 5.7 10*3/uL 4.4-11.0 [facility] Myoglobin, Serumon 5 Myoglobin, Ser 47 ng/mL Normal 28-72 [facility] Comment on above: Result Comment: Perf ormed at: - [facility] [address] [id number] Acid Polymerization Operator: Fili Doe PhD, Phone: [phone] Performed By: #### L 506.1000, L501.9520, L100.0100, L500.4050 #### [facility] Laboratory [address] [place], [address] Abdomen/Pelvis WITH Contrast on 08-18-2024 Abdomen/Pelvis WITH Contrast [facility] Imaging Services [address] [place] [address] Abdomen/Pelvis WITH Contrast MR#: [id number] Acct: [id number] Name: EMY PERAZA Rep #: [id number] : 1940 M 84 From: Lj Dietrich MD PCP: Dr. Kyaw Arvizu MD Status: REG CLI Study: Abdomen/Pelvis WITH Contrast Date of Exam: Exam# [id number] Ordering Dr: Kyaw Arvizu MD PROCEDURE: ABDOMEN/PELVIS WITH CONTRAST REASON FOR EXAM: Unspecified abdominal pain TECHNIQUE: Abdomen and pelvis CT with intravenous contrast. IV CONTRAST: COMPARISON: 06/18/2022. FINDINGS: Lung bases: Mild dependent atelectasis Liver: Diffuse fatty infiltration. Gallbladder: Surgically absent. Spleen: Unremarkable. Pancreas: Unremarkable. Adrenals: Unremarkable. Kidneys: Prominent left renal pelvis. Subcentimeter renal cysts, bilaterally. Bladder: Unremarkable. Reproductive Organs: Hysterectomy Bowel: Colonic diverticulosis without diverticulitis. Appendix: Normal. Lymph nodes: No suspicious lymph node enlargement. Vasculature: Mild diffuse atherosclerotic calcifications are noted. Peritoneum / Retroperitoneum: No ascites. No free air. Bones: Degenerative changes of the spine. 5 mm anterolisthesis of L4 on L5. CT/Abdomen/Pelvis WITH Contrast IMPRESSION: 1. No acute abnormality in the abdomen and pelvis. 2. Hepatic steatosis 3. Grade 1 anterolisthesis of L4 on L5. 4. Other findings as above. One or more dose reduction techniques were used (e.g., Automated exposure control, adjustment of the mA and/or kV according to patient size, use of iterative reconstruction technique). Reading Location: [facility] CC: Dr. Kyaw Arvizu MD Shoe Associate: Signed Normal [facility] Absolute neutrophil countOrd ered By: Kyaw Arvizu on 08-18-2024 Neutrophils (Bld) [#/Vol] 3.6 10*3/uL 2.0-7.7 [facility] Albumin to globulin ratioOrd ered By: Kyaw Arvizu on 08-18-2024 Albumin/Globulin [Mass ratio] 0.9 {ratio} 0.9-2.4 [facility] Basophil percentageOrdered B y: Kyaw Arvizu on 08-18-2024 Basophils/100 WBC (Bld) 0.2 % 0-1 [facility] Bilirubin, totalOrdered By: Kyaw Arvizu on 08-18-2024 Bilirubin [Mass/Vol] 0.90 mg/dL 0.20-1.00 [facility] Comment on above: For patients on eltr ombopag therapy, use of Dimension [place] TBIL is not recommended. Blood urea nitrogen (BUN)/cr eatinine ratioOrdered By: Kyaw Arvizu on 08-18-2024 Urea nitrogen/Creatinine [Mass ratio] 16.0 mg/mg 10-20 [facility] CBC W/Diff, Automatedon 08-02 Absolute Lymph 1.11 X10 3/uL Normal 0.83-4.51 [facility] Comment on above: Performed By: #### L 506.1000, L501.9520, L100.0100, L500.4050 #### [facility] Laboratory [address] [place], [address] Absolute Neut 3.6 X10 3/uL Normal 2.0-7.7 [facility] Comment on above: Performed By: #### L 506.1000, L501.9520, L100.0100, L500.4050 #### [facility] Laboratory [address] [place], [address] Basophils/100 WBC (Bld) 0.2 % Normal 0-1 [facility] Comment on above: Performed By: #### L 506.1000, L501.9520, L100.0100, L500.4050 #### [facility] Laboratory [address] [place], [address] Eosinophils/100 WBC (Bld) 0.2 % Normal 0-5 [facility] Comment on above: Performed By: #### L 506.1000, L501.9520, L100.0100, L500.4050 #### [facility] Laboratory [address] [place], [address] Erythrocyte distribution width (RBC) [Ratio] 12.5 % Normal 11.6-14.6 [facility] Comment on above: Performed By: #### L 506.1000, L501.9520, L100.0100, L500.4050 #### [facility] Laboratory [address] [place], [address] Hematocrit (Bld) [Volume fraction] 42.4 % Normal 40-54 [facility] Comment on above: Performed By: #### L 506.1000, L501.9520, L100.0100, L500.4050 #### [facility] Laboratory [address] [place], [address] Hemoglobin (Bld) [Mass/Vol] 14.1 g/dL Normal 13.0-16.5 [facility] Comment on above: Performed By: #### L 506.1000, L501.9520, L100.0100, L500.4050 #### [facility] Laboratory [address] [place], [address] IG% 0.400 Normal 0.0-0.9 [facility] Comment on above: Result Comment: IG% - Immature Granulocytes (promyelocytes, myelocytes and metamyelocytes) > 1% indicates that a LEFT SHIFT is Present. Performed By: #### L 506.1000, L501.9520, L100.0100, L500.4050 #### [facility] Laboratory [address] [place], [address] Lymphocytes/100 WBC (Bld) 20.8 % Normal 19-41 [facility] Comment on above: Performed By: #### L 506.1000, L501.9520, L100.0100, L500.4050 #### [facility] Laboratory [address] [place], [address] MCH (RBC) [Entitic mass] 32.3 pg High 27.0-32.0 [facility] Comment on above: Performed By: #### L 506.1000, L501.9520, L100.0100, L500.4050 #### [facility] Laboratory [address] [place], [address] MCHC (RBC) [Mass/Vol] 33.3 g/dL Normal 32-36 [facility] Comment on above: Performed By: #### L 506.1000, L501.9520, L100.0100, L500.4050 #### [facility] Laboratory [address] [place], [address] MCV (RBC) [Entitic vol] 97.2 fL High 80-94 [facility] Comment on above: Performed By: #### L 506.1000, L501.9520, L100.0100, L500.4050 #### [facility] Laboratory [address] [place], [address] Monocytes/100 WBC (Bld) 10.7 % High 0-10 [facility] Comment on above: Performed By: #### L 506.1000, L501.9520, L100.0100, L500.4050 #### [facility] Laboratory [address] [place], [address] Neutrophils/100 WBC (Bld) 67.7 % Normal 47-70 [facility] Comment on above: Performed By: #### L 506.1000, L501.9520, L100.0100, L500.4050 #### [facility] Laboratory [address] [place], [address] Nucleated RBC (Bld) [#/Vol] 0 10*3/uL Normal 0-5 [facility] Comment on above: Performed By: #### L 506.1000, L501.9520, L100.0100, L500.4050 #### [facility] Laboratory [address] [place], [address] Platelet mean volume (Bld) [Entitic vol] 9.3 fL Normal 6.2-12.0 [facility] Comment on above: Performed By: #### L 506.1000, L501.9520, L100.0100, L500.4050 #### [facility] Laboratory [address] [place], [address] Platelets (Bld) [#/Vol] 221 10*3/uL Normal 150-450 [facility] Comment on above: Performed By: #### L 506.1000, L501.9520, L100.0100, L500.4050 #### [facility] Laboratory [address] [place], [address] RBC (Bld) [#/Vol] 4.36 10*6/uL Low 4.6-6.2 [facility] Comment on above: Performed By: #### L 506.1000, L501.9520, L100.0100, L500.4050 #### [facility] Laboratory [address] [place], [address] RDW SD 44.8 fl High 35.1-43.9 [facility] Comment on above: Performed By: #### L 506.1000, L501.9520, L100.0100, L500.4050 #### [facility] Laboratory [address] [place], [address] WBC (Bld) [#/Vol] 5.3 10*3/uL Normal 4.4-11.0 [facility] Comment on above: Performed By: #### L 506.1000, L501.9520, L100.0100, L500.4050 #### [facility] Laboratory [address] [place], [address] CPK Total, Creatine Kinaseon 08-18-2024 CPK TOTAL 65 U/L Normal 39-308 [facility] Comment on above: Performed By: #### L 506.1000, L501.9520, L100.0100, L500.4050 #### [facility] Laboratory [address] [place], [address] Carbon dioxide measurementOr dered By: Kyaw Arvizu on 08-18-2024 CO2 [Moles/Vol] 26.0 mmol/L 21.0-32.0 [facility] Chloride measurementOrdered By: Kyaw Arvizu on 08-18-2024 Chloride [Moles/Vol] 104 mmol/L 98-107 [facility] Comprehensive Metabolic Prof ilon 08-18-2024 Albumin [Mass/Vol] 3.5 g/dL Normal 3.2-5.0 [facility] Comment on above: Performed By: #### L 506.1000, L501.9520, L100.0100, L500.4050 #### [facility] Laboratory [address] [place], [address] Albumin/Globulin [Mass ratio] 0.9 {ratio} Normal 0.9-2.4 [facility] Comment on above: Performed By: #### L 506.1000, L501.9520, L100.0100, L500.4050 #### [facility] Laboratory [address] [place], [address] ALK P 103 U/L Normal 45-117 [facility] Comment on above: Performed By: #### L 506.1000, L501.9520, L100.0100, L500.4050 #### [facility] Laboratory [address] [place], [address] ALT [Catalytic activity/Vol] 16 U/L Normal 16-61 [facility] Comment on above: Performed By: #### L 506.1000, L501.9520, L100.0100, L500.4050 #### [facility] [address] [place], [address] AST [Catalytic activity/Vol] 18 U/L Normal 15-37 [facility] Comment on above: Performed By: #### L 506.1000, L501.9520, L100.0100, L500.4050 #### [facility] Laboratory [address] [place], [address] Bilirubin [Mass/Vol] 0.90 mg/dL Normal 0.20-1.00 [facility] Comment on above: Result Comment: For patients on eltrombopag therapy, use of Dimension [place] TBIL is not recommended. Performed By: #### L 506.1000, L501.9520, L100.0100, L500.4050 #### [facility] [address] [place], [address] BUN/CRE 16.0 RATIO Normal 10-20 [facility] Comment on above: Performed By: #### L 506.1000, L501.9520, L100.0100, L500.4050 #### [facility] Laboratory [address] [place], [address] CA,Total 8.9 mg/dL Normal 8.5-10.1 [facility] Comment on above: Performed By: #### L 506.1000, L501.9520, L100.0100, L500.4050 #### [facility] Laboratory [address] [place], [address] Chloride [Moles/Vol] 104 mmol/L Normal 98-107 [facility] Comment on above: Performed By: #### L 506.1000, L501.9520, L100.0100, L500.4050 #### [facility] [address] [place], [address] CO2 [Moles/Vol] 26.0 mmol/L Normal 21.0-32.0 [facility] Comment on above: Performed By: #### L 506.1000, L501.9520, L100.0100, L500.4050 #### [facility] Laboratory [address] [place], [address] Creatinine [Mass/Vol] 0.94 mg/dL Normal 0.70-1.30 [facility] Comment on above: Result Comment: The validity of the calculated GFR GFRAA in patients over 70 years has not been determined. Clinical correlation is essential. Performed By: #### L 506.1000, L501.9520, L100.0100, L500.4050 #### [facility] [address] [place], [address] EST GFR - AA 99 mL/min Normal >60 [facility] Comment on above: Result Comment: Afri can Iraqi GFR Calc Performed By: #### L 506.1000, L501.9520, L100.0100, L500.4050 #### [facility] [address] [place], [address] GAP 7 Normal 5-15 [facility] Comment on above: Performed By: #### L 506.1000, L501.9520, L100.0100, L500.4050 #### [facility] [address] [place], [address] GFR/1.73 sq M.predicted among non-blacks MDRD (S/P/Bld) [Vol rate/Area] 82 mL/min/{1.73_m2} Normal >60 [facility] Comment on above: Result Comment: Non- GFR Calc Performed By: #### L 506.1000, L501.9520, L100.0100, L500.4050 #### [facility] [address] [place], [address] Globulin (S) [Mass/Vol] 3.9 g/dL Normal 2.2-4.2 [facility] Comment on above: Performed By: #### L 506.1000, L501.9520, L100.0100, L500.4050 #### [facility] [address] [place], [address] Glucose [Mass/Vol] 92 mg/dL Normal 74-106 [facility] Comment on above: Performed By: #### L 506.1000, L501.9520, L100.0100, L500.4050 #### [facility] [address] [place], [address] Potassium [Moles/Vol] 4.0 mmol/L Normal 3.5-5.1 [facility] Comment on above: Performed By: #### L 506.1000, L501.9520, L100.0100, L500.4050 #### [facility] [address] [place], [address] Sodium [Moles/Vol] 137 mmol/L Normal 136-145 [facility] Comment on above: Performed By: #### L 506.1000, L501.9520, L100.0100, L500.4050 #### [facility] [address] [place], [address] T PROT 7.4 g/dL Normal 6.4-8.2 [facility] Comment on above: Performed By: #### L 506.1000, L501.9520, L100.0100, L500.4050 #### [facility] Laboratory [address] [place], [address] Urea nitrogen [Mass/Vol] 15 mg/dL Normal 7-18 [facility] Comment on above: Performed By: #### L 506.1000, L501.9520, L100.0100, L500.4050 #### [facility] [address] [place], [address] Eosinophil percentageOrdered By: Kyaw Arvizu on 08-18-2024 Eosinophils/100 WBC (Bld) 0.2 % 0-5 [facility] Erythrocyte distribution wid th ratioOrdered By: Kyaw Arvizu on 08-18-2024 Erythrocyte distribution width (RBC) [Ratio] 12.5 % 11.6-14.6 [facility] Erythrocyte distribution wid th standard deviationOrdered By: Kyaw Arvizu on 08-18-2024 Erythrocyte distribution width (RBC) [Entitic vol] 44.8 fL High 35.1-43.9 [facility] Estimated glomerular filtrat ion rate (GFR) AmericanOrdered By: Kyaw Arvizu on 08-18-2024 Estimated GFR (MDRD) Amer 99 mL/min >60 [facility] Comment on above: GFR Calc Glomerular filtration rate ( GFR) estimationOrdered By: Kyaw Arvizu 08-18-2024 Estimated GFR (MDRD) Non-Af Amer 82 mL/min >60 [facility] Comment on above: Non- GFR Calc Glucose measurementOrdered B y: Kyaw Arvizu on 08-18-2024 Glucose [Mass/Vol] 92 mg/dL 74-106 [facility] Hematocrit Auto (Bld) [Volum e fraction]Ordered By: Kyaw Arvizu on 08-18-2024 Hematocrit (Bld) [Volume fraction] 42.4 % 40-54 [facility] Hemoglobin measurementOrdere d By: Kyaw Arvizu on 08-18-2024 Hemoglobin (Bld) [Mass/Vol] 14.1 g/dL 13.0-16.5 [facility] Immature granulocytes/100 WB C Auto (Bld)Ordered By: Kyaw Arvizu on 08-18-2024 Immature granulocytes/100 WBC (Bld) 0.400 % 0.0-0.9 [facility] Comment on above: IG% - Immature Granu locytes (promyelocytes, myelocytes and metamyelocytes) > 1% indicates that a LEFT SHIFT is Present. L501.4020on 08-18-2024 TROPONIN-I HS 4 pg/mL Normal 3.0-78.0 [facility] Comment on above: Order Comment: 1 Result Comment: Dennise roberts Note: New Test Units and Gender Specific Reference Ranges. For more information see Policy Stat Procedure [place] High Sensitivity Troponin (TNIH) and attachments. Performed By: #### L 506.1000, L501.9520, L100.0100, L500.4050 #### [facility] [address] [place] [address], [address] Laboratory - Chemistry and C hemistry - challengeOrdered By: Kyaw Arvizu on 08-18-2024 AST [Catalytic activity/Vol] 18 U/L 15-37 [facility] Lymphocytes Auto (Unsp spec) [#/Vol]Ordered By: Kyaw Kenan on 08-18-2024 Lymphocytes (Bld) [#/Vol] 1.11 10*3/uL 0.83-4.51 [facility] Lymphocytes/100 WBC Auto (Un sp spec)Ordered By: Kyaw Arvizu on 08-18-2024 Lymphocytes/100 WBC (Bld) 20.8 % 19-41 [facility] MCV (mean corpuscular volume ) determinationOrdered By: Kyaw Arvizu on 08-18-2024 MCV (RBC) [Entitic vol] 97.2 fL High 80-94 [facility] Mean corpuscular hemoglobin (MCH) determinationOrdered By: [facility] MCH (RBC) [Entitic mass] 32.3 pg High 27.0-32.0 [facility] Mean corpuscular hemoglobin concentration (MCHC) determinationOrdered By: Kyaw Arvizu on 08-18-2024 MCHC (RBC) [Mass/Vol] 33.3 g/dL 32-36 [facility] Mean platelet volume determi nationOrdered By: Kyaw Arvizu on 08-18-2024 Platelet mean volume (Bld) [Entitic vol] 9.3 fL 6.2-12.0 [facility] Monocyte percentageOrdered B y: Kyaw Arvizu on 08-18-2024 Monocytes/100 WBC (Bld) 10.7 % High 0-10 [facility] Neutrophil percentageOrdered By: Kyaw Arvizu on 08-18-2024 Neutrophils/100 WBC (Bld) 67.7 % 47-70 [facility] Nucleated red blood cell per centageOrdered By: Kyaw Arvizu on 08-18-2024 Nucleated RBC/100 WBC (Bld) [Ratio] 0 % 0-5 [facility] Platelet countOrdered By: Edward Arvizu on 08-18-2024 Platelets (Bld) [#/Vol] 221 10*3/uL 150-450 [facility] Potassium measurementOrdered By: Kyaw Arvizu on 08-18-2024 Potassium [Moles/Vol] 4.0 mmol/L 3.5-5.1 [facility] RBC Auto (Bld) [#/Vol]Ordere d By: Kyaw Arvizu on 08-18-2024 RBC (Bld) [#/Vol] 4.36 10*6/uL Low 4.6-6.2 [facility] Serum anion gap measurementO rdered By: Kyaw Arvizu on 08-18-2024 Anion gap [Moles/Vol] 7 mmol/L 5-15 [facility] Serum globulin measurementOr dered By: Kyaw Arvizu on 08-18-2024 Globulin (S) [Mass/Vol] 3.9 g/dL 2.2-4.2 [facility] Serum myoglobin measurementO rdered By: Kyaw Arvizu on 08-18-2024 Myoglobin [Mass/Vol] 47 ng/mL 28-72 [facility] Comment on above: Performed at: [address] [id number] Director: Fili Doe PhD, Phone: [phone] Serum or plasma alanine hwang otransferase (ALT) measurementOrdered By: Kyaw Arvizu 08-18-2024 ALT [Catalytic activity/Vol] 16 U/L 16-61 [facility] Serum or plasma albumin jovita urement (mass/volume)Ordered By: Kyaw Arvizu 08-18-2024 Albumin [Mass/Vol] 3.5 g/dL 3.2-5.0 [facility] Serum or plasma alkaline rajat sphatase measurementOrdered By: Kyaw Arvizu 08-18-2024 ALP [Catalytic activity/Vol] 103 U/L 45-117 [facility] Serum or plasma calcium jovita urement (mass/volume)Ordered By: Kyaw Arvizu 08-18-2024 Calcium [Mass/Vol] 8.9 mg/dL 8.5-10.1 [facility] Serum or plasma creatinine m easurement (mass/volume)Ordered By: Kyaw Arvizu 08-18-2024 Creatinine [Mass/Vol] 0.94 mg/dL 0.70-1.30 [facility] Comment on above: The validity of the calculated GFR & GFRAA in patients over 70 years has not been determined. Clinical correlation is essential. Serum or plasma urea nitroge n measurement (mass/volume)Ordered By: Kyaw Arvizu 08-18-2024 Urea nitrogen [Mass/Vol] 15 mg/dL 7-18 [facility] Sodium levelOrdered By: Kyaw Arvizu 08-18-2024 Sodium [Moles/Vol] 137 mmol/L 136-145 [facility] [facility] Total creatine kinase measur ementOrdered By: Kyaw Arvizu 08-18-2024 CK [Catalytic activity/Vol] 65 U/L 39-308 [facility] Total proteinOrdered By: Kyaw Arvizu 08-18-2024 Protein [Mass/Vol] 7.4 g/dL 6.4-8.2 [facility] Troponin IOrdered By: Kyaw robb on 08-18-2024 Troponin I High Sensitivity 4 pg/mL 3.0-78.0 [facility] Comment on above: Please Note: New Ai t Units and Gender Specific Reference Ranges. For more information see Policy Stat Procedure [place] High Sensitivity Troponin (TNIH) and attachments. White blood cell (WBC) count Ordered By: Kyaw Arvizu on 08-18-2024 WBC (Bld) [#/Vol] 5.3 10*3/uL 4.4-11.0 [facility] PSA,Total - Annual Screenon 04-21-2024 PSA,TOT SCREEN 4.78 ng/mL High 0.00-4.00 [facility] Comment on above: Result Comment: This test was performed using the TPSA assay method for the [employer] MOD chemistry system. Values obtained with different assay methods cannot be used interchangably. When changing PSA assays in the course of monitoring a patient, additional sequential testing should be carried out to confirm baseline values. Performed By: #### L 506.1000, L501.9520, L100.0100, L500.4050 #### [facility] [address] [place], [address] CBC W/Diff, Automatedon 01-31 Absolute Lymph 1.11 X10 3/uL Normal 0.83-4.51 [facility] Comment on above: Performed By: #### L 100.0100, L506.1000, L501.9520, L500.4050 #### [facility] [address] [place], [address] Absolute Neut 3.4 X10 3/uL Normal 2.0-7.7 [facility] Comment on above: Performed By: #### L 100.0100, L506.1000, L501.9520, L500.4050 #### [facility] [address] [place], [address] Basophils/100 WBC (Bld) 0.4 % Normal 0-1 [facility] Comment on above: Performed By: #### L 100.0100, L506.1000, L501.9520, L500.4050 #### [facility] [address] [place], [address] Eosinophils/100 WBC (Bld) 0.0 % Normal 0-5 [facility] Comment on above: Performed By: #### L 100.0100, L506.1000, L501.9520, L500.4050 #### [facility] [address] [place], [address] Erythrocyte distribution width (RBC) [Ratio] 13.2 % Normal 11.6-14.6 [facility] Comment on above: Performed By: #### L 100.0100, L506.1000, L501.9520, L500.4050 #### [facility] [address] [place], [address] Hematocrit (Bld) [Volume fraction] 40.7 % Normal 40-54 [facility] Comment on above: Performed By: #### L 100.0100, L506.1000, L501.9520, L500.4050 #### [facility] [address] [place], [address] Hemoglobin (Bld) [Mass/Vol] 13.3 g/dL Normal 13.0-16.5 [facility] Comment on above: Performed By: #### L 100.0100, L506.1000, L501.9520, L500.4050 #### [facility] [address] [place], [address] IG% 0.200 Normal 0.0-0.9 [facility] Comment on above: Result Comment: IG% - Immature Granulocytes (promyelocytes, myelocytes and metamyelocytes) > 1% indicates that a LEFT SHIFT is Present. Performed By: #### L 100.0100, L506.1000, L501.9520, L500.4050 #### [facility] [address] [place], [address] Lymphocytes/100 WBC (Bld) 21.6 % Normal 19-41 [facility] Comment on above: Performed By: #### L 100.0100, L506.1000, L501.9520, L500.4050 #### [facility] [address] [place], [address] MCH (RBC) [Entitic mass] 32.8 pg High 27.0-32.0 [facility] Comment on above: Performed By: #### L 100.0100, L506.1000, L501.9520, L500.4050 #### [facility] [address] [place], [address] MCHC (RBC) [Mass/Vol] 32.7 g/dL Normal 32-36 [facility] Comment on above: Performed By: #### L 100.0100, L506.1000, L501.9520, L500.4050 #### [facility] [address] [place], [address] MCV (RBC) [Entitic vol] 100.2 fL High 80-94 [facility] Comment on above: Performed By: #### L 100.0100, L506.1000, L501.9520, L500.4050 #### [facility] [address] [place], [address] Monocytes/100 WBC (Bld) 11.1 % High 0-10 [facility] Comment on above: Performed By: #### L 100.0100, L506.1000, L501.9520, L500.4050 #### [facility] [address] [place], [address] Neutrophils/100 WBC (Bld) 66.7 % Normal 47-70 [facility] Comment on above: Performed By: #### L 100.0100, L506.1000, L501.9520, L500.4050 #### [facility] [address] [place], [address] Nucleated RBC (Bld) [#/Vol] 0 10*3/uL Normal 0-5 [facility] Comment on above: Performed By: #### L 100.0100, L506.1000, L501.9520, L500.4050 #### [facility] [address] [place], [address] Platelet mean volume (Bld) [Entitic vol] 9.3 fL Normal 6.2-12.0 [facility] Comment on above: Performed By: #### L 100.0100, L506.1000, L501.9520, L500.4050 #### [facility] [address] [place], [address] Platelets (Bld) [#/Vol] 228 10*3/uL Normal 150-450 [facility] Comment on above: Performed By: #### L 100.0100, L506.1000, L501.9520, L500.4050 #### [facility] [address] [place], [address] RBC (Bld) [#/Vol] 4.06 10*6/uL Low 4.6-6.2 [facility] Comment on above: Performed By: #### L 100.0100, L506.1000, L501.9520, L500.4050 #### [facility] [address] [place], [address] RDW SD 48.8 fl High 35.1-43.9 [facility] Comment on above: Performed By: #### L 100.0100, L506.1000, L501.9520, L500.4050 #### [facility] [address] [place], [address] WBC (Bld) [#/Vol] 5.2 10*3/uL Normal 4.4-11.0 [facility] Comment on above: Performed By: #### L 100.0100, L506.1000, L501.9520, L500.4050 #### [facility] [address] [place], [address] Comprehensive Metabolic Prof evelyn 02-20-2024 Albumin [Mass/Vol] 3.5 g/dL Normal 3.2-5.0 [facility] Comment on above: Performed By: #### L 100.0100, L506.1000, L501.9520, L500.4050 #### [facility] [address] [place], [address] Albumin/Globulin [Mass ratio] 1.0 {ratio} Normal 0.9-2.4 [facility] Comment on above: Performed By: #### L 100.0100, L506.1000, L501.9520, L500.4050 #### [facility] [address] [place], [address] ALK P 90 U/L Normal 45-117 [facility] Comment on above: Performed By: #### L 100.0100, L506.1000, L501.9520, L500.4050 #### [facility] [address] [place], [address] ALT [Catalytic activity/Vol] 15 U/L Low 16-61 [facility] Comment on above: Performed By: #### L 100.0100, L506.1000, L501.9520, L500.4050 #### [facility] [address] [place], [address] AST [Catalytic activity/Vol] 15 U/L Normal 15-37 [facility] Comment on above: Performed By: #### L 100.0100, L506.1000, L501.9520, L500.4050 #### [facility] [address] [place], [address] Bilirubin [Mass/Vol] 0.70 mg/dL Normal 0.20-1.00 [facility] Comment on above: Result Comment: For patients on eltrombopag therapy, use of Dimension [place] TBIL is not recommended. Performed By: #### L 100.0100, L506.1000, L501.9520, L500.4050 #### [facility] [address] [place], [address] BUN/CRE 16.9 RATIO Normal 10-20 [facility] Comment on above: Performed By: #### L 100.0100, L506.1000, L501.9520, L500.4050 #### [facility] [address] [place], [address] CA,Total 8.8 mg/dL Normal 8.5-10.1 [facility] Comment on above: Performed By: #### L 100.0100, L506.1000, L501.9520, L500.4050 #### [facility] [address] [place], [address] Chloride [Moles/Vol] 108 mmol/L High 98-107 [facility] Comment on above: Performed By: #### L 100.0100, L506.1000, L501.9520, L500.4050 #### [facility] [address] [place], [address] CO2 [Moles/Vol] 29.0 mmol/L Normal 21.0-32.0 [facility] Comment on above: Performed By: #### L 100.0100, L506.1000, L501.9520, L500.4050 #### [facility] [address] [place], [address] Creatinine [Mass/Vol] 0.89 mg/dL Normal 0.70-1.30 [facility] Comment on above: Result Comment: The validity of the calculated GFR GFRAA in patients over 70 years has not been determined. Clinical correlation is essential. Performed By: #### L 100.0100, L506.1000, L501.9520, L500.4050 #### [facility] [address] [place], [address] EST GFR - AA 105 mL/min Normal >60 [facility] Comment on above: Result Comment: Afri can [place] GFR Calc Performed By: #### L 100.0100, L506.1000, L501.9520, L500.4050 #### [facility] [address] [place], [address] GAP 2 Low 5-15 [facility] Comment on above: Performed By: #### L 100.0100, L506.1000, L501.9520, L500.4050 #### [facility] [address] [place], [address] GFR/1.73 sq M.predicted among non-blacks MDRD (S/P/Bld) [Vol rate/Area] 87 mL/min/{1.73_m2} Normal >60 [facility] Comment on above: Result Comment: Non- GFR Calc Performed By: #### L 100.0100, L506.1000, L501.9520, L500.4050 #### [facility] [address] [place], [address] Globulin (S) [Mass/Vol] 3.5 g/dL Normal 2.2-4.2 [facility] Comment on above: Performed By: #### L 100.0100, L506.1000, L501.9520, L500.4050 #### [facility] [address] [place], [address] Glucose [Mass/Vol] 95 mg/dL Normal 74-106 [facility] Comment on above: Performed By: #### L 100.0100, L506.1000, L501.9520, L500.4050 #### [facility] [address] [place], [address] Potassium [Moles/Vol] 4.3 mmol/L Normal 3.5-5.1 [facility] Comment on above: Performed By: #### L 100.0100, L506.1000, L501.9520, L500.4050 #### [facility] [address] [place], [address] Sodium [Moles/Vol] 139 mmol/L Normal 136-145 [facility] Comment on above: Performed By: #### L 100.0100, L506.1000, L501.9520, L500.4050 #### [facility] [address] [place], [address] T PROT 7.0 g/dL Normal 6.4-8.2 [facility] Comment on above: Performed By: #### L 100.0100, L506.1000, L501.9520, L500.4050 #### [facility] [address] [place], [address] Urea nitrogen [Mass/Vol] 15 mg/dL Normal 7-18 [facility] Comment on above: Performed By: #### L 100.0100, L506.1000, L501.9520, L500.4050 #### [facility] [address] [place], [address] Thyroid Stim Hormone (TSH)on 02-20-2024 TSH 2.010 uIU/mL Normal 0.358-3.740 [facility] Comment on above: Performed By: #### L 100.0100, L506.1000, L501.9520, L500.4050 #### [facility] [address] [place], [address] Vitamin D,25 Hydroxyon 02-19 Vitamin D 25-OH 45.3 ng/mL Normal [facility] Comment on above: Result Comment: Phyllis min D 25(OH) Status Range Deficiency <20 ng/mL (50nmol/L) Insufficiency 20 - 30 ng/mL (50 - 75 nmol/L) Sufficiency 30 - 100 ng/mL (75 - 250 nmol/L) Toxicity >100 ng/mL (>250 nmol/L) Performed By: #### L 100.0100, L506.1000, L501.9520, L500.4050 #### [facility] [address] [place], [address] Fecal Fat, Qualitativeon FATS, NEUTRAL Normal Normal . [facility] Comment on above: Order Comment: Test( s) 534998-Yxsz, Neutral; 124924-Xocr, Totalwas developed and its performance characteristicsdetermined by [employer]. It has not been cleared or approvedby the Food and Drug Administration. Result Comment: Norm al (<60 Droplets/HPF) Performed By: #### L 506.1000, L501.9520, L100.0100, L500.4050 #### [facility] [address] [place], [place], [id number] FATS, TOTAL Normal Normal . [facility] Comment on above: Order Comment: Test( s) 621010-Isdp, Neutral; 705933-Vhzz, Totalwas developed and its performance characteristicsdetermined by [employer]. It has not been cleared or approvedby the Food and Drug Administration. Result Comment: Norm al (<100 Droplets/HPF) Performed at: [address] [id number] Acid Polymerization Operator: Fili Doe PhD, Phone: [phone] Performed By: #### L 506.1000, L501.9520, L100.0100, L500.4050 #### [facility] [address] [place], [place], [address] Miscellaneous Lab Procedure 2on 01-03-2024 [facility] LAB TEST 2 Normal [facility] Comment on above: Order Comment: [id number] STOOL CULTURE Result Comment: STOO L CULTURE SALMONELLA/SHIGELLA SCREEN RESULT 1 AEROMONAS SPECIES ABNORMAL HEAVY GROWTH ISOLATED ANTIMICROBIAL SUSCEPTIBILITY CEFTRIAXONE SUSCEPTIBLE CIPROFLOXACIN RESISTANT GENTAMICIN SUSCEPTIBLE LEVOFLOXACIN INTERMEDIATE MEROPENEM SUSCEPTIBLE PIPERACILLIN/TAZOBACTAM SUSCEPTIBLE TRIMETHOPRIM/SULFA SUSCEPTIBLE CAMPYLOBACTER CULTURE FINAL REPORT RESULT 1 NO CAMPYLOBACTER SPECIES ISOLATED E COLI SHIGA TOXIN EIA NEGATIVE TESTING PERFORMED AT [facility]. ORIGINAL REPORT ON FILE IN LAB CONTAINS ADDITIONAL TEST SITE INFORMATION. Performed By: #### L 506.1000, L501.9520, L100.0100, L500.4050 #### [facility] [address] [place], [place], [id number] Ova and Parasites 8623on OP OVA AND PARASITES EX AM, ROUTINE These results were obtained using wet preparation(s) and trichrome stained smear. This test does not include testing for Crytosporidium parvum, Cyclospora, or Microsporidia. O+P Spec Micro One negative specimen does not rule out the possibility of a parasitic infection. ___ TESTING PERFORMED AT [facility]. ORIGINAL REPORT ON FILE IN LAB CONTAINS ADDITIONAL TEST SITE INFORMATION. ___ Ova/Parasite Exam NO OVA, CYSTS, OR PARASITES FOUND. Normal [facility] Comment on above: Performed By: #### L 506.1000, L501.9520, L100.0100, L500.4050 #### [facility] [address] [place], [place], [address] CBC W/Diff, Automatedon 06- Absolute Lymph 0.86 X10 3/uL Normal 0.83-4.51 [facility] Comment on above: Performed By: #### L 100.0100, M600.5000, L801.1543, M100.6796, L500.4050, M100.7900, L7000.0300 #### [facility] [address] [place], [address] Absolute Neut 4.2 X10 3/uL Normal 2.0-7.7 [facility] Comment on above: Performed By: #### L 100.0100, M600.5000, L801.1543, M100.6796, L500.4050, M100.7900, L7000.0300 #### [facility] [address] [place], [address] Basophils/100 WBC (Bld) 0.3 % Normal 0-1 [facility] Comment on above: Performed By: #### L 100.0100, M600.5000, L801.1543, M100.6796, L500.4050, M100.7900, L7000.0300 #### [facility] [address] [place], [address] Eosinophils/100 WBC (Bld) 2.6 % Normal 0-5 [facility] Comment on above: Performed By: #### L 100.0100, M600.5000, L801.1543, M100.6796, L500.4050, M100.7900, L7000.0300 #### [facility] [address] [place], [address] Erythrocyte distribution width (RBC) [Ratio] 13.5 % Normal 11.6-14.6 [facility] Comment on above: Performed By: #### L 100.0100, M600.5000, L801.1543, M100.6796, L500.4050, M100.7900, L7000.0300 #### [facility] [address] [place], [address] Hematocrit (Bld) [Volume fraction] 41.9 % Normal 40-54 [facility] Comment on above: Performed By: #### L 100.0100, M600.5000, L801.1543, M100.6796, L500.4050, M100.7900, L7000.0300 #### [facility] [address] [place], [address] Hemoglobin (Bld) [Mass/Vol] 13.8 g/dL Normal 13.0-16.5 [facility] Comment on above: Performed By: #### L 100.0100, M600.5000, L801.1543, M100.6796, L500.4050, M100.7900, L7000.0300 #### [facility] [address] [place], [address] IG% 0.300 Normal 0.0-0.9 [facility] Comment on above: Result Comment: IG% - Immature Granulocytes (promyelocytes, myelocytes and metamyelocytes) > 1% indicates that a LEFT SHIFT is Present. Performed By: #### L 100.0100, M600.5000, L801.1543, M100.6796, L500.4050, M100.7900, L7000.0300 #### [facility] [address] [place], [address] Lymphocytes/100 WBC (Bld) 14.0 % Low 19-41 [facility] Comment on above: Performed By: #### L 100.0100, M600.5000, L801.1543, M100.6796, L500.4050, M100.7900, L7000.0300 #### [facility] [address] [place], [address] MCH (RBC) [Entitic mass] 32.4 pg High 27.0-32.0 [facility] Comment on above: Performed By: #### L 100.0100, M600.5000, L801.1543, M100.6796, L500.4050, M100.7900, L7000.0300 #### [facility] [address] [place], [address] MCHC (RBC) [Mass/Vol] 32.9 g/dL Normal 32-36 [facility] Comment on above: Performed By: #### L 100.0100, M600.5000, L801.1543, M100.6796, L500.4050, M100.7900, L7000.0300 #### [facility] [address] [place], [address] MCV (RBC) [Entitic vol] 98.4 fL High 80-94 [facility] Comment on above: Performed By: #### L 100.0100, M600.5000, L801.1543, M100.6796, L500.4050, M100.7900, L7000.0300 #### [facility] [address] [place], [address] Monocytes/100 WBC (Bld) 14.8 % High 0-10 [facility] Comment on above: Performed By: #### L 100.0100, M600.5000, L801.1543, M100.6796, L500.4050, M100.7900, L7000.0300 #### [facility] [address] [place], [address] Neutrophils/100 WBC (Bld) 68.0 % Normal 47-70 [facility] Comment on above: Performed By: #### L 100.0100, M600.5000, L801.1543, M100.6796, L500.4050, M100.7900, L7000.0300 #### [facility] [address] [place], [address] Nucleated RBC (Bld) [#/Vol] 0 10*3/uL Normal 0-5 [facility] Comment on above: Performed By: #### L 100.0100, M600.5000, L801.1543, M100.6796, L500.4050, M100.7900, L7000.0300 #### [facility] [address] [place], [address] Platelet mean volume (Bld) [Entitic vol] 8.7 fL Normal 6.2-12.0 [facility] Comment on above: Performed By: #### L 100.0100, M600.5000, L801.1543, M100.6796, L500.4050, M100.7900, L7000.0300 #### [facility] [address] [place], [address] Platelets (Bld) [#/Vol] 188 10*3/uL Normal 150-450 [facility] Comment on above: Performed By: #### L 100.0100, M600.5000, L801.1543, M100.6796, L500.4050, M100.7900, L7000.0300 #### [facility] [address] [place], [address] RBC (Bld) [#/Vol] 4.26 10*6/uL Low 4.6-6.2 [facility] Comment on above: Performed By: #### L 100.0100, M600.5000, L801.1543, M100.6796, L500.4050, M100.7900, L7000.0300 #### [facility] [address] [place], [address] RDW SD 48.4 fl High 35.1-43.9 [facility] Comment on above: Performed By: #### L 100.0100, M600.5000, L801.1543, M100.6796, L500.4050, M100.7900, L7000.0300 #### [facility] [address] [place], [address] WBC (Bld) [#/Vol] 6.2 10*3/uL Normal 4.4-11.0 [facility] Comment on above: Performed By: #### L 100.0100, M600.5000, L801.1543, M100.6796, L500.4050, M100.7900, L7000.0300 #### [facility] [address] [place], [address] CDIFF (PCR)on 12-28-2023 CDIFF C diff DNA Spec Ql ZE+probe Reference Range: Negative Kadriana GeneXpert: polymerase chain reaction (PCR) 027 027 NAP1-B1 Presumptive Negative *for epidemiolologic???use C. Diff PCR Negative- No toxigenic C. Diff Detected Normal [facility] Comment on above: Performed By: #### L 506.1000, L501.9520, L100.0100, L500.4050 #### [facility] [address] [place], [address] Comprehensive Metabolic Prof ilon 12-28-2023 Albumin [Mass/Vol] 3.5 g/dL Normal 3.2-5.0 [facility] Comment on above: Performed By: #### L 506.1000, L501.9520, L100.0100, L500.4050 #### [facility] [address] [place], [address] Albumin/Globulin [Mass ratio] 0.9 {ratio} Normal 0.9-2.4 [facility] Comment on above: Performed By: #### L 506.1000, L501.9520, L100.0100, L500.4050 #### [facility] [address] [place], [address] ALK P 98 U/L Normal 45-117 [facility] Comment on above: Performed By: #### L 506.1000, L501.9520, L100.0100, L500.4050 #### [facility] [address] [place], [address] ALT [Catalytic activity/Vol] 17 U/L Normal 16-61 [facility] Comment on above: Performed By: #### L 506.1000, L501.9520, L100.0100, L500.4050 #### [facility] [address] [place], [address] AST [Catalytic activity/Vol] 14 U/L Low 15-37 [facility] Comment on above: Performed By: #### L 506.1000, L501.9520, L100.0100, L500.4050 #### [facility] [address] [place], [address] Bilirubin [Mass/Vol] 0.80 mg/dL Normal 0.20-1.00 [facility] Comment on above: Result Comment: For patients on eltrombopag therapy, use of Dimension [place] TBIL is not recommended. Performed By: #### L 506.1000, L501.9520, L100.0100, L500.4050 #### [facility] [address] [place], [address] BUN/CRE 9.8 RATIO Low 10-20 [facility] Comment on above: Performed By: #### L 506.1000, L501.9520, L100.0100, L500.4050 #### [facility] [address] [place], [address] CA,Total 8.8 mg/dL Normal 8.5-10.1 [facility] Comment on above: Performed By: #### L 506.1000, L501.9520, L100.0100, L500.4050 #### [facility] [address] [place], [address] Chloride [Moles/Vol] 105 mmol/L Normal 98-107 [facility] Comment on above: Performed By: #### L 506.1000, L501.9520, L100.0100, L500.4050 #### [facility] [address] [place], [address] CO2 [Moles/Vol] 25.0 mmol/L Normal 21.0-32.0 [facility] Comment on above: Performed By: #### L 506.1000, L501.9520, L100.0100, L500.4050 #### [facility] [address] [place], [address] Creatinine [Mass/Vol] 1.12 mg/dL Normal 0.70-1.30 [facility] Comment on above: Result Comment: The validity of the calculated GFR GFRAA in patients over 70 years has not been determined. Clinical correlation is essential. Performed By: #### L 506.1000, L501.9520, L100.0100, L500.4050 #### [facility] [address] [place], [address] EST GFR - AA 81 mL/min Normal >60 [facility] Comment on above: Result Comment: Afri can Iraqi GFR Calc Performed By: #### L 506.1000, [id number], L100.0100, L500.4050 #### [facility] [address] [place], [address] GAP 7 Normal 5-15 [facility] Comment on above: Performed By: #### L 506.1000, [id number], L100.0100, L500.4050 #### [facility] [address] [place], [address] GFR/1.73 sq M.predicted among non-blacks MDRD (S/P/Bld) [Vol rate/Area] 67 mL/min/{1.73_m2} Normal >60 [facility] Comment on above: Result Comment: Non- GFR Calc Performed By: #### L 506.1000, L501.9520, L100.0100, L500.4050 #### [facility] [address] [place], [address] Globulin (S) [Mass/Vol] 3.9 g/dL Normal 2.2-4.2 [facility] Comment on above: Performed By: #### L 506.1000, [id number], L100.0100, L500.4050 #### [facility] [address] [place], [address] Glucose [Mass/Vol] 89 mg/dL Normal 74-106 [facility] Comment on above: Performed By: #### L 506.1000, [id number], L100.0100, L500.4050 #### [facility] [address] [place], [address] Potassium [Moles/Vol] 3.7 mmol/L Normal 3.5-5.1 [facility] Comment on above: Performed By: #### L 506.1000, [id number], L100.0100, L500.4050 #### [facility] [address] [place], [address] Sodium [Moles/Vol] 137 mmol/L Normal 136-145 [facility] Comment on above: Performed By: #### L 506.1000, [id number], L100.0100, L500.4050 #### [facility] [address] [place], [address] T PROT 7.4 g/dL Normal 6.4-8.2 [facility] Comment on above: Performed By: #### L 506.1000, [id number], L100.0100, L500.4050 #### [facility] [address] [place], [address] Urea nitrogen [Mass/Vol] 11 mg/dL Normal 7-18 [facility] Comment on above: Performed By: #### L 506.1000, [id number], L100.0100, L500.4050 #### [facility] [address] [place], [address] Stool Occult Blood iFOBon STOB Positive Normal [facility] Comment on above: Performed By: #### L 100.0100, M600.5000, L801.1543, M100.6796, L500.4050, M100.7900, L7000.0300 #### [facility] [address] [place], [address] M100.678on 11-14-2023 M100.678 SARS-CoV-2 (COVID 19 ) Negative INFLUENZA A Negative INFLUENZA B Negative RSV PCR Negative Normal [facility] Comment on above: Performed By: #### L 506.1000, [id number], L100.0100, L500.4050 #### [facility] [address] [facility] [place], [place], [address] CNOVon 07-10-2022 CNOV Office Visit (LUKE ) EMY PERAZA ([id number]) 1940 M Date Time Provider Department 07/10/22 3:15 PM BRENDON DAWSON During your visit today, we recorded the following information about you: Temperature Pulse Blood pressure Weight 97.7 degrees 104/minute 110/78 73.5 kg Height 1.803 m Brendon Dawson III, MD 07/14/2022 7:20 AM Signed Subjective: Patient recently admitted to [facility] with a partial small bowel obstruction which resolved on its own. Patient currently states his abdomen is soft tolerating a diet moving his bowels. Objective:Blood pressure 110/78, pulse 104, temperature 36.5 ?C (97.7 ?F), height 180.3 cm (5' 11), weight 73.5 kg (162 lb), SpO2 97 %. Abdomen is soft nontender nondistended Assessment: Partial small bowel obstruction Plan: This point we want to just have him gradually increase his activity gradually increase his diet small meals with plenty of fluids like for him to follow back up with me on an as-needed basis. Referring Provider: BRENDON DAWSON [[id number]] Allergies As of Date: 07/10/2022 Noted Allergy Reaction bee stings [Other] 08/16/2006 1 - Mental Status Change 4 - Hives Date Reviewed: 07/10/2022 Reviewed by: Britney Laguerre LPN - Fully Assessed Reason for Visit: Follow Up [171] Cmt: Twisted bowel Primary Visit Diagnosis:Partial small bowel obstruction (HCC) [K56.600] Prescriptions as of 07/14/2022 - finasteride (PROSCAR) 5 mg tablet Take 1 tablet by mouth once daily. - tamsulosin ER (FLOMAX) 0.4 mg cp24 Take 1 capsule by mouth once daily. - phenazopyridine (PYRIDIUM) 200 mg tablet Take 1 tablet by mouth three times daily as needed. - MULTI-VITAMIN ORAL Take by mouth. - aspirin(ADULT LOW DOSE ASPIRIN 81 MG TAB, DELAYED RELEASE) Take one(1) tablet daily. - GLUCOSAMINE CHONDROITIN MAXSTR 500 MG-400 MG CAP One capsule 2 times daily Problem List As Of Date 07/10/2022 Noted Resolved BLADDER NECK OBSTRUCTION [N32.0] 08/17/2008 BPH W URINARY OBS/LUTS [N40.1, N13.8] 08/17/2008 BPH (benign prostatic hyperplasia) [N40.0] 08/04/2014 Urinary retention [R33.9] 10/29/2014 History of prostatitis [Z87.438] 10/29/2014 Lower urinary tract symptoms (LUTS) [R39.9] 12/09/2014 Prostatitis [N41.9] 12/09/2014 Letter Text Encounter Status:Closed by BRENDON DAWSON on 07/14/22 Normal [facility] Absolute lymphocyte counton 06-21-2022 Lymphocytes Auto (Unsp spec) [#/Vol] 0.92 10*3/uL 0.83-4.51 [facility] Work Phone: Basophil percentageon 2021 Basophils/100 WBC (Bld) 0.1 % 0-1 [facility] Work Phone: Chloride [Moles/Vol] 112 mmol/L 98-107 [facility] Work Phone: Eosinophils/100 WBC (Bld) 0.0 % 0-5 [facility] Work Phone: Glucose [Mass/Vol] 99 mg/dL 74-106 [facility] Work Phone: Neutrophils (Bld) [#/Vol] 6.4 10*3/uL 2.0-7.7 [facility] Work Phone: Neutrophils/100 WBC (Bld) 79.4 % 47-70 [facility] Work Phone: Potassium [Moles/Vol] 3.6 mmol/L 3.5-5.1 [facility] Work Phone: Sodium [Moles/Vol] 142 mmol/L 136-145 [facility] Work Phone: WBC (Bld) [#/Vol] 8.0 10*3/uL 4.4-11.0 [facility] Work Phone: Blood erythrocytes count (nu mber/volume)on 06-21-2022 RBC (Bld) [#/Vol] 3.50 10*6/uL 4.6-6.2 [facility] Work Phone: Blood hemoglobin measurement (mass/volume)on 06-21-2022 Hemoglobin (Bld) [Mass/Vol] 11.7 g/dL 13.0-16.5 [facility] Work Phone: Blood lymphocytes/100 leukoc yteson 06-21-2022 Lymphocytes/100 WBC (Bld) 11.5 % 19-41 [facility] Work Phone: Blood monocytes/100 leukocyt eson 06-21-2022 Monocytes/100 WBC (Bld) 8.6 % 0-10 [facility] Work Phone: Blood platelet mean volumeon 06-21-2022 Platelet mean volume (Bld) [Entitic vol] 9.6 fL 6.2-12.0 [facility] Work Phone: [phone] Determination of erythrocyte mean corpuscular volume (MCV)on 06-21-2022 MCV (RBC) [Entitic vol] 99.4 fL 80-94 [facility] Work Phone: Hematocrit Auto (Bld) [Volum e fraction]on 06-21-2022 Hematocrit (Bld) [Volume fraction] 34.8 % 40-54 [facility] Work Phone: [phone] Laboratory - Chemistry and C hemistry - challengeon 06-21-2022 CO2 [Moles/Vol] 27.0 mmol/L 21.0-32.0 [facility] Work Phone: Urea nitrogen/Creatinine [Mass ratio] 24.3 mg/mg 10-20 [facility] Work Phone: Laboratory - Hematology and Cell countson 06-21-2022 Erythrocyte distribution width (RBC) [Entitic vol] 48.5 fL 35.1-43.9 [facility] Work Phone: [phone] Erythrocyte distribution width (RBC) [Ratio] 13.3 % 11.6-14.6 [facility] Work Phone: Immature granulocytes/100 WBC (Bld) 0.400 % 0.0-0.9 [facility] Work Phone: [phone] Comment on above: IG% - Immature Granu locytes (promyelocytes, myelocytes and metamyelocytes) > 1% indicates that a LEFT SHIFT is Present. MCH (RBC) [Entitic mass] 33.4 pg 27.0-32.0 [facility] Work Phone: Nucleated RBC/100 WBC (Bld) [Ratio] 0 % 0-5 [facility] Work Phone: MCHC Auto (RBC) [Mass/Vol]on 06-21-2022 MCHC (RBC) [Mass/Vol] 33.6 g/dL 32-36 [facility] Work Phone: No Panel Informationon 06-21 Estimated Creatinine Clearance Calc 61.33 ml/min [facility] Work Phone: Estimated GFR (MDRD) Amer 122 mL/min >60 [facility] Work Phone: Comment on above: GFR Calc Estimated GFR (MDRD) Non-Af Amer 101 mL/min >60 [facility] Work Phone: Comment on above: Non- GFR Calc Platelets bldon 06-21-2022 Platelets (Bld) [#/Vol] 157 10*3/uL 150-450 [facility] Work Phone: Serum or plasma calcium jovita urement (mass/volume)on 06-21-2022 Calcium [Mass/Vol] 7.7 mg/dL 8.5-10.1 [facility] Work Phone: Serum or plasma creatinine m easurement (mass/volume)on 06-21-2022 Creatinine [Mass/Vol] 0.78 mg/dL 0.70-1.30 [facility] Work Phone: Comment on above: The validity of the calculated GFR & GFRAA in patients over 70 years has not been determined. Clinical correlation is essential. Serum or plasma urea nitroge n measurement (mass/volume)on 06-21-2022 Urea nitrogen [Mass/Vol] 19 mg/dL 7-18 [facility] Work Phone: Thin prep Papanicolaou smear with manual screeningon 06-21-2022 Thin prep Papanicolaou smear with manual screening 3 5-15 [facility] Work Phone: Basophil percentageon 2021 Lactate [Moles/Vol] 1.3 mmol/L 0.4-2.0 [facility] Work Phone: Blood manual differential co mment interpretation (narrative result)on 06-19-2022 Manual differential comment Alfie (Bld) [Interp] COMMENT [facility] Work Phone: Comment on above: LYMPHOPENIA. Absolute lymphocyte counton 06-18-2022 Lymphocytes Auto (Unsp spec) [#/Vol] 1.37 10*3/uL 0.83-4.51 [facility] Work Phone: [phone] Basophil percentageon 2021 Basophil percentage 0 SEEN /hpf 0-5 [facility] Work Phone: [phone] Basophils/100 WBC (Bld) 0.2 % 0-1 [facility] Work Phone: Bilirubin [Mass/Vol] 0.60 mg/dL 0.20-1.00 [facility] Work Phone: Comment on above: For patients on eltr ombopag therapy, use of Dim[place] TBIL is not recommended. Chloride [Moles/Vol] 104 mmol/L 98-107 [facility] Work Phone: Eosinophils/100 WBC (Bld) 0.0 % 0-5 [facility] Work Phone: Glucose [Mass/Vol] 150 mg/dL 74-106 [facility] Work Phone: Comment on above: Fasting Glucose resu lt greater than or equal to 126 mg/dL suggests DIABETES MELLITUS per A.D.A. criteria. Neutrophils (Bld) [#/Vol] 8.4 10*3/uL 2.0-7.7 [facility] Work Phone: [phone] Neutrophils/100 WBC (Bld) 80.0 % 47-70 [facility] Work Phone: [phone] Potassium [Moles/Vol] 3.7 mmol/L 3.5-5.1 [facility] Work Phone: [phone] Protein [Mass/Vol] 7.7 g/dL 6.4-8.2 [facility] Work Phone: Sodium [Moles/Vol] 138 mmol/L 136-145 [facility] Work Phone: [phone] WBC (Bld) [#/Vol] 10.5 10*3/uL 4.4-11.0 [facility] Work Phone: [phone] Bilirubin Test strip Ql (U)o n 06-18-2022 Bilirubin Ql (U) Negative Negative [facility] Work Phone: [phone] Blood erythrocytes count (nu mber/volume)on 06-18-2022 RBC (Bld) [#/Vol] 4.57 10*6/uL 4.6-6.2 [facility] Work Phone: [phone] Blood hemoglobin measurement (mass/volume)on 06-18-2022 Hemoglobin (Bld) [Mass/Vol] 14.8 g/dL 13.0-16.5 [facility] Work Phone: Blood lymphocytes/100 leukoc yteson 06-18-2022 Lymphocytes/100 WBC (Bld) 13.0 % 19-41 [facility] Work Phone: Blood monocytes/100 leukocyt eson 06-18-2022 Monocytes/100 WBC (Bld) 6.5 % 0-10 [facility] Work Phone: [phone] Blood platelet mean volumeon 06-18-2022 Platelet mean volume (Bld) [Entitic vol] 9.3 fL 6.2-12.0 [facility] Work Phone: [phone] Determination of erythrocyte mean corpuscular volume (MCV)on 06-18-2022 MCV (RBC) [Entitic vol] 96.5 fL 80-94 [facility] Work Phone: [phone] Hematocrit Auto (Bld) [Volum e fraction]on 06-18-2022 Hematocrit (Bld) [Volume fraction] 44.1 % 40-54 [facility] Work Phone: [phone] Ketones Test strip Ql (U)on 06-18-2022 Ketones Ql (U) Negative Negative [facility] Work Phone: Laboratory - Chemistry and C hemistry - challengeon 06-18-2022 ALP [Catalytic activity/Vol] 106 U/L 45-117 [facility] Work Phone: [phone] ALT [Catalytic activity/Vol] 21 U/L 16-61 [facility] Work Phone: CO2 [Moles/Vol] 27.0 mmol/L 21.0-32.0 [facility] Work Phone: [phone] Globulin (S) [Mass/Vol] 4.0 g/dL 2.2-4.2 [facility] Work Phone: [phone] Lipase [Catalytic activity/Vol] 133 U/L 73-393 [facility] Work Phone: [phone] Urea nitrogen/Creatinine [Mass ratio] 12.6 mg/mg 10-20 [facility] Work Phone: [phone] Laboratory - Hematology and Cell countson 06-18-2022 Erythrocyte distribution width (RBC) [Entitic vol] 45.4 fL 35.1-43.9 [facility] Work Phone: [phone] Erythrocyte distribution width (RBC) [Ratio] 12.7 % 11.6-14.6 [facility] Work Phone: [phone] Immature granulocytes/100 WBC (Bld) 0.300 % 0.0-0.9 [facility] Work Phone: [phone] Comment on above: IG% - Immature Granu locytes (promyelocytes, myelocytes and metamyelocytes) > 1% indicates that a LEFT SHIFT is Present. MCH (RBC) [Entitic mass] 32.4 pg 27.0-32.0 [facility] Work Phone: [phone] Nucleated RBC/100 WBC (Bld) [Ratio] 0 % 0-5 [facility] Work Phone: [phone] MCHC Auto (RBC) [Mass/Vol]on 06-18-2022 MCHC (RBC) [Mass/Vol] 33.6 g/dL 32-36 [facility] Work Phone: [phone] Mucus LM Ql (Urine sed)on Mucus Ql (Urine sed) 0 SEEN /hpf [facility] Work Phone: Nitrite Test strip Ql (U)on 06-18-2022 Nitrite Ql (U) Negative Negative [facility] Work Phone: No Panel Informationon 06-18 Estimated Creatinine Clearance Calc 51.85 ml/min [facility] Work Phone: Estimated GFR (MDRD) Amer 75 mL/min >60 [facility] Work Phone: Comment on above: GFR Calc Estimated GFR (MDRD) Non-Af Amer 62 mL/min >60 [facility] Work Phone: Comment on above: Non- GFR Calc Platelets bldon 06-18-2022 Platelets (Bld) [#/Vol] 234 10*3/uL 150-450 [facility] Work Phone: Protein Test strip Ql (U)on 06-18-2022 Protein Ql (U) 15 mg/dl Negative [facility] Work Phone: Serum or plasma albumin jovita urement (mass/volume)on 06-18-2022 Albumin [Mass/Vol] 3.7 g/dL 3.2-5.0 [facility] Work Phone: Serum or plasma albumin/glob ulin mass ratioon 06-18-2022 Albumin/Globulin [Mass ratio] 0.9 {ratio} 0.9-2.4 [facility] Work Phone: Serum or plasma calcium jovita urement (mass/volume)on 06-18-2022 Calcium [Mass/Vol] 9.1 mg/dL 8.5-10.1 [facility] Work Phone: Serum or plasma creatinine m easurement (mass/volume)on 06-18-2022 Creatinine [Mass/Vol] 1.19 mg/dL 0.70-1.30 [facility] Work Phone: Comment on above: The validity of the calculated GFR & GFRAA in patients over 70 years has not been determined. Clinical correlation is essential. Serum or plasma urea nitroge n measurement (mass/volume)on 06-18-2022 Urea nitrogen [Mass/Vol] 15 mg/dL -18 [facility] Work Phone: Squamous epithelial cells de tection in urine sediment by light microscopyon 06-18-2022 Epithelial cells.squamous LM Ql (Urine sed) 0 SEEN /hpf 0-5 [facility] Work Phone: [phone] Thin prep Papanicolaou smear with manual screeningon 06-18-2022 Thin prep Papanicolaou smear with manual screening 14 U/L 15-37 [facility] Work Phone: Thin prep Papanicolaou smear with manual screening 7 5-15 [facility] Work Phone: [phone] Urine blood detectionon 06-01 RBC Ql (U) Negative Negative [facility] Work Phone: [phone] RBC Ql (U) 0 SEEN /hpf 0-5 [facility] Work Phone: [phone] Urine clarityon 06-18-2022 Clarity (U) Clear Clear [facility] Work Phone: Urine color determinationon 06-18-2022 Color (U) Yellow Yellow [facility] Work Phone: Urine glucose detectionon Glucose Ql (U) Normal mg/dl Normal [facility] Work Phone: Urine leukocyte esterase det ection by dipstickon 06-18-2022 Leukocyte esterase Test strip Ql (U) 25 /ul Negative [facility] Work Phone: [phone] Urine pHon 06-18-2022 pH (U) 7.0 [pH] 5.0 - 8.0 [facility] Work Phone: [phone] Urine sediment bacteria coun t by microscopy (number/high power field)on 06-18-2022 Bacteria LM.HPF (Urine sed) [#/Area] 0 /[HPF] None Seen [facility] Work Phone: [phone] Urine specific gravity measu rementon 06-18-2022 Specific gravity (U) [Rel density] 1.005 1.002-1.030 [facility] Work Phone: Urobilinogen Auto test strip Ql (U)on 06-18-2022 Urobilinogen Ql (U) Normal mg/dl Normal [facility] Work Phone: Absolute lymphocyte counton 02-14-2022 Lymphocytes Auto (Unsp spec) [#/Vol] 1.22 10*3/uL 0.83-4.51 [facility] Work Phone: Basophil percentageon 2021 Basophils/100 WBC (Bld) 0.2 % 0-1 [facility] Work Phone: Bilirubin [Mass/Vol] 0.70 mg/dL 0.20-1.00 [facility] Work Phone: Comment on above: For patients on eltr ombopag therapy, use of Dimension [place] TBIL is not recommended. Chloride [Moles/Vol] 107 mmol/L 98-107 [facility] Work Phone: Eosinophils/100 WBC (Bld) 0.0 % 0-5 [facility] Work Phone: Glucose [Mass/Vol] 94 mg/dL 74-106 [facility] Work Phone: Neutrophils (Bld) [#/Vol] 3.5 10*3/uL 2.0-7.7 [facility] Work Phone: Neutrophils/100 WBC (Bld) 66.9 % 47-70 [facility] Work Phone: Potassium [Moles/Vol] 4.3 mmol/L 3.5-5.1 [facility] Work Phone: Protein [Mass/Vol] 7.6 g/dL 6.4-8.2 [facility] Work Phone: Sodium [Moles/Vol] 141 mmol/L 136-145 [facility] Work Phone: WBC (Bld) [#/Vol] 5.3 10*3/uL 4.4-11.0 [facility] Work Phone: Blood erythrocytes count (nu mber/volume)on 02-14-2022 RBC (Bld) [#/Vol] 4.30 10*6/uL 4.6-6.2 [facility] Work Phone: Blood hemoglobin measurement (mass/volume)on 02-14-2022 Hemoglobin (Bld) [Mass/Vol] 14.2 g/dL 13.0-16.5 [facility] Work Phone: Blood lymphocytes/100 leukoc yteson 02-14-2022 Lymphocytes/100 WBC (Bld) 23.2 % 19-41 [facility] Work Phone: Blood monocytes/100 leukocyt eson 02-14-2022 Monocytes/100 WBC (Bld) 9.5 % 0-10 [facility] Work Phone: Blood platelet mean volumeon 02-14-2022 Platelet mean volume (Bld) [Entitic vol] 9.5 fL 6.2-12.0 [facility] Work Phone: Determination of erythrocyte mean corpuscular volume (MCV)on 02-14-2022 MCV (RBC) [Entitic vol] 98.6 fL 80-94 [facility] Work Phone: Hematocrit Auto (Bld) [Volum e fraction]on 02-14-2022 Hematocrit (Bld) [Volume fraction] 42.4 % 40-54 [facility] Work Phone: Laboratory - Chemistry and C hemistry - challengeon 02-14-2022 ALP [Catalytic activity/Vol] 92 U/L 45-117 [facility] Work Phone: ALT [Catalytic activity/Vol] 20 U/L 16-61 [facility] Work Phone: CO2 [Moles/Vol] 29.0 mmol/L 21.0-32.0 [facility] Work Phone: Globulin (S) [Mass/Vol] 3.9 g/dL 2.2-4.2 [facility] Work Phone: Urea nitrogen/Creatinine [Mass ratio] 17.3 mg/mg 10-20 [facility] Work Phone: Laboratory - Hematology and Cell countson 02-14-2022 Erythrocyte distribution width (RBC) [Entitic vol] 46.6 fL 35.1-43.9 [facility] Work Phone: Erythrocyte distribution width (RBC) [Ratio] 12.9 % 11.6-14.6 [facility] Work Phone: Immature granulocytes/100 WBC (Bld) 0.200 % 0.0-0.9 [facility] Work Phone: Comment on above: IG% - Immature Granu locytes (promyelocytes, myelocytes and metamyelocytes) > 1% indicates that a LEFT SHIFT is Present. MCH (RBC) [Entitic mass] 33.0 pg 27.0-32.0 [facility] Work Phone: Nucleated RBC/100 WBC (Bld) [Ratio] 0 % 0-5 [facility] Work Phone: MCHC Auto (RBC) [Mass/Vol]on 02-14-2022 MCHC (RBC) [Mass/Vol] 33.5 g/dL 32-36 [facility] Work Phone: No Panel Informationon 02-14 Estimated GFR (MDRD) Amer 109 mL/min >60 [facility] Work Phone: Comment on above: GFR Calc Estimated GFR (MDRD) Non-Af Amer 90 mL/min >60 [facility] Work Phone: Comment on above: Non- GFR Calc Thyroid Stimulating Hormone (TSH) 1.86 uIU/mL 0.358-3.74 [facility] Work Phone: Vitamin D 25-Hydroxy 56.6 ng/mL [facility] Work Phone: Comment on above: Vitamin D 25(OH) Sta tus Range Deficiency <20 ng/mL (50nmol/L) Insufficiency 20 - 30 ng/mL (50 - 75 nmol/L) Sufficiency 30 - 100 ng/mL (75 - 250 nmol/L) Toxicity >100 ng/mL (>250 nmol/L) Platelets bldon 02-14-2022 Platelets (Bld) [#/Vol] 228 10*3/uL 150-450 [facility] Work Phone: Serum or plasma albumin jovita urement (mass/volume)on 02-14-2022 Albumin [Mass/Vol] 3.7 g/dL 3.2-5.0 [facility] Work Phone: [phone] Serum or plasma albumin/glob ulin mass ratioon 02-14-2022 Albumin/Globulin [Mass ratio] 0.9 {ratio} 0.9-2.4 [facility] Work Phone: Serum or plasma calcium jovita urement (mass/volume)on 02-14-2022 Calcium [Mass/Vol] 8.9 mg/dL 8.5-10.1 [facility] Work Phone: Serum or plasma creatinine m easurement (mass/volume)on 02-14-2022 Creatinine [Mass/Vol] 0.87 mg/dL 0.70-1.30 [facility] Work Phone: Comment on above: The validity of the calculated GFR & GFRAA in patients over 70 years has not been determined. Clinical correlation is essential. Serum or plasma urea nitroge n measurement (mass/volume)on 02-14-2022 Urea nitrogen [Mass/Vol] 15 mg/dL 7-18 [facility] Work Phone: Thin prep Papanicolaou smear with manual screeningon 02-14-2022 Thin prep Papanicolaou smear with manual screening 18 U/L 15-37 [facility] Work Phone: Thin prep Papanicolaou smear with manual screening 5 5-15 [facility] Work Phone: Absolute lymphocyte counton 01-17-2022 Lymphocytes Auto (Unsp spec) [#/Vol] 0.78 10*3/uL 0.83-4.51 [facility] Work Phone: [phone] Basophil percentageon 2021 Basophils/100 WBC (Bld) 0.1 % 0-1 [facility] Work Phone: [phone] Bilirubin [Mass/Vol] 0.60 mg/dL 0.20-1.00 [facility] Work Phone: [phone] Comment on above: For patients on eltr ombopag therapy, use of [place] [place] TBIL is not recommended. Chloride [Moles/Vol] 104 mmol/L 98-107 [facility] Work Phone: Eosinophils/100 WBC (Bld) 0.0 % 0-5 [facility] Work Phone: [phone] Glucose [Mass/Vol] 101 mg/dL 74-106 [facility] Work Phone: [phone] Comment on above: Fasting Glucose resu lt from 100 to 125 mg/dL suggests IMPAIRED HOMEOSTASIS per A.D.A. criteria. Neutrophils (Bld) [#/Vol] 9.4 10*3/uL 2.0-7.7 [facility] Work Phone: [phone] Neutrophils/100 WBC (Bld) 86.0 % 47-70 [facility] Work Phone: [phone] Potassium [Moles/Vol] 4.0 mmol/L 3.5-5.1 [facility] Work Phone: [phone] Protein [Mass/Vol] 7.9 g/dL 6.4-8.2 [facility] Work Phone: [phone] Sodium [Moles/Vol] 135 mmol/L 136-145 [facility] Work Phone: WBC (Bld) [#/Vol] 10.9 10*3/uL 4.4-11.0 [facility] Work Phone: Blood erythrocytes count (nu mber/volume)on 01-17-2022 RBC (Bld) [#/Vol] 4.68 10*6/uL 4.6-6.2 [facility] Work Phone: Blood hemoglobin measurement (mass/volume)on 01-17-2022 Hemoglobin (Bld) [Mass/Vol] 15.3 g/dL 13.0-16.5 [facility] Work Phone: Blood lymphocytes/100 leukoc yteson 01-17-2022 Lymphocytes/100 WBC (Bld) 7.1 % 19-41 [facility] Work Phone: Blood monocytes/100 leukocyt eson 01-17-2022 Monocytes/100 WBC (Bld) 6.3 % 0-10 [facility] Work Phone: Blood platelet mean volumeon 01-17-2022 Platelet mean volume (Bld) [Entitic vol] 9.9 fL 6.2-12.0 [facility] Work Phone: Determination of erythrocyte mean corpuscular volume (MCV)on 01-17-2022 MCV (RBC) [Entitic vol] 98.5 fL 80-94 [facility] Work Phone: Hematocrit Auto (Bld) [Volum e fraction]on 01-17-2022 Hematocrit (Bld) [Volume fraction] 46.1 % 40-54 [facility] Work Phone: [phone] Laboratory - Chemistry and C hemistry - challengeon 01-17-2022 ALP [Catalytic activity/Vol] 122 U/L 45-117 [facility] Work Phone: ALT [Catalytic activity/Vol] 23 U/L 16-61 [facility] Work Phone: [phone] CO2 [Moles/Vol] 23.0 mmol/L 21.0-32.0 [facility] Work Phone: Globulin (S) [Mass/Vol] 4.1 g/dL 2.2-4.2 [facility] Work Phone: Urea nitrogen/Creatinine [Mass ratio] 16.4 mg/mg 10-20 [facility] Work Phone: Laboratory - Hematology and Cell countson 01-17-2022 Erythrocyte distribution width (RBC) [Entitic vol] 46.7 fL 35.1-43.9 [facility] Work Phone: Erythrocyte distribution width (RBC) [Ratio] 13.0 % 11.6-14.6 [facility] Work Phone: Immature granulocytes/100 WBC (Bld) 0.500 % 0.0-0.9 [facility] Work Phone: Comment on above: IG% - Immature Granu locytes (promyelocytes, myelocytes and metamyelocytes) > 1% indicates that a LEFT SHIFT is Present. MCH (RBC) [Entitic mass] 32.7 pg 27.0-32.0 [facility] Work Phone: Nucleated RBC/100 WBC (Bld) [Ratio] 0 % 0-5 [facility] Work Phone: MCHC Auto (RBC) [Mass/Vol]on 01-17-2022 MCHC (RBC) [Mass/Vol] 33.2 g/dL 32-36 [facility] Work Phone: No Panel Informationon 01-17 Estimated GFR (MDRD) Amer 78 mL/min >60 [facility] Work Phone: Comment on above: GFR Calc Estimated GFR (MDRD) Non-Af Amer 64 mL/min >60 [facility] Work Phone: Comment on above: Non- GFR Calc Platelets bldon 01-17-2022 Platelets (Bld) [#/Vol] 224 10*3/uL 150-450 [facility] Work Phone: Serum or plasma albumin jovita urement (mass/volume)on 01-17-2022 Albumin [Mass/Vol] 3.8 g/dL 3.2-5.0 [facility] Work Phone: Serum or plasma albumin/glob ulin mass ratioon 01-17-2022 Albumin/Globulin [Mass ratio] 0.9 {ratio} 0.9-2.4 [facility] Work Phone: Serum or plasma calcium jovita urement (mass/volume)on 01-17-2022 Calcium [Mass/Vol] 8.9 mg/dL 8.5-10.1 [facility] Work Phone: Serum or plasma creatinine m easurement (mass/volume)on 01-17-2022 Creatinine [Mass/Vol] 1.16 mg/dL 0.70-1.30 [facility] Work Phone: Comment on above: The validity of the calculated GFR & GFRAA in patients over 70 years has not been determined. Clinical correlation is essential. Serum or plasma urea nitroge n measurement (mass/volume)on 01-17-2022 Urea nitrogen [Mass/Vol] 19 mg/dL 7-18 [facility] Work Phone: Thin prep Papanicolaou smear with manual screeningon 01-17-2022 Thin prep Papanicolaou smear with manual screening 16 U/L 15-37 [facility] Work Phone: Thin prep Papanicolaou smear with manual screening 8 5-15 [facility] Work Phone: Lower GI hemoglobin IA Ql (S tl) Stool Occult Blood (SUSAN) Positive [facility] Work Phone: No Panel Information Enteric Bacteriology Campylobacter species [facility] Work Phone: Vital Signs Date Time Vital Sign Value Performing Clinician Denisai ap 07-10-2022 15:14-0500 Body height 180.3 cm Brendon Dawson MD Work Phone: [facility] 07-10-2022 15:14-0500 Body temperature 97.7 [degF] Brendon Dawson MD Work Phone: [facility] 07-10-2022 15:14-0500 Body weight 73.48 kg Brendon Dawson MD Work Phone: [facility] 07-10-2022 15:14-0500 Diastolic blood pressure 78 mm[Hg] Brendon Dawson MD Work Phone: [facility] 07-10-2022 15:14-0500 Heart rate 104 /min Brendon Dawson MD Work Phone: [facility] 07-10-2022 15:14-0500 SaO2% (BldA) [Mass fraction] 97 % Brendon Dawson MD Work Phone: [facility] 07-10-2022 15:14-0500 Systolic blood pressure 110 mm[Hg] Brendon Dawson MD Work Phone: [facility] 06-21-2022 16:28-0500 Body temperature 98.4 [degF] Dr. Kyaw Arvizu Work Phone: [facility] Work Phone: 06-21-2022 16:28-0500 Diastolic blood pressure 62 mm[Hg] Dr. Kyaw Arvizu Work Phone: [facility] Work Phone: 06-21-2022 16:28-0500 Heart rate 58 /min Dr. Kyaw Arvizu Work Phone: [facility] Work Phone: 06-21-2022 16:28-0500 Respiratory rate 14 /min Dr. Kyaw Arvizu Work Phone: [facility] Work Phone: 06-21-2022 16:28-0500 SaO2% (BldA) [Mass fraction] 95 % Dr. Kyaw Arvizu Work Phone: [facility] Work Phone: 06-21-2022 16:28-0500 Systolic blood pressure 115 mm[Hg] Dr. Kyaw Arvizu Work Phone: [facility] Work Phone: 06-20-2022 13:28-0500 Body height 182.[address] Kyaw Arvizu Work Phone: [facility] Work Phone: 06-20-2022 13:28-0500 Body weight 74.[address] Kyaw Arvizu Work Phone: [facility] Work Phone: 06-19-2022 05:57-0500 Body mass index (BMI) [Ratio] 22.4 kg/m2 Dr. Kyaw Arvizu Work Phone: [facility] Work Phone: 06-18-2022 19:10-0500 Heart rate 88 /min Dr. Kyaw Arvizu Work Phone: [facility] Work Phone: 06-18-2022 19:10-0500 SaO2% (BldA) [Mass fraction] 99 % Dr. Kyaw Arvizu Work Phone: [facility] Work Phone: 06-18-2022 16:23-0500 Body height 180.[address] Kyaw Arvizu Work Phone: [facility] Work Phone: 06-18-2022 16:23-0500 Body mass index (BMI) [Ratio] 23.8 kg/m2 Dr. Kyaw Arvizu Work Phone: [facility] Work Phone: 06-18-2022 16:23-0500 Body temperature 97.7 [degF] Dr. Kyaw Arvizu Work Phone: [facility] Work Phone: 06-18-2022 16:23-0500 Body weight 77.[address] Kyaw Arvizu Work Phone: [facility] Work Phone: 06-18-2022 16:23-0500 Diastolic blood pressure 77 mm[Hg] Dr. Kyaw Arvizu Work Phone: [facility] Work Phone: 06-18-2022 16:23-0500 Respiratory rate 16 /min Dr. Kyaw Arvizu Work Phone: [facility] Work Phone: 06-18-2022 16:23-0500 Systolic blood pressure 131 mm[Hg] Dr. Kyaw Arvizu Work Phone: [facility] Work Phone: 04-30-2022 12:34-0400 Body temperature 97.6 [degF] Dr. Kyaw Arvizu Work Phone: [facility] Work Phone: 04-30-2022 12:34-0400 Diastolic blood pressure 72 mm[Hg] Dr. Kyaw Arvizu Work Phone: [facility] Work Phone: 04-30-2022 12:34-0400 Heart rate 83 /min Dr. Kyaw Arvizu Work Phone: [facility] Work Phone: 04-30-2022 12:34-0400 Respiratory rate 16 /min Dr. Kyaw Arvizu Work Phone: [facility] Work Phone: 04-30-2022 12:34-0400 SaO2% (BldA) [Mass fraction] 93 % Dr. Kyaw Arvizu Work Phone: [facility] Work Phone: 04-30-2022 12:34-0400 Systolic blood pressure 138 mm[Hg] Dr. Kyaw Arvizu Work Phone: [facility] Work Phone: Encounters Encounter Date Encounter Type Care Provider Facility Start: 08-25-2024 End: 08-25-[address] Kyaw Arvizu MD Work Phone: [facility] Work Phone: Start: 08-25-2024 End: 08-25-[address] Kyaw Arvizu MD -Laboratory, Phy Office 3rd Flr Start: 08-25-2024 End: 08-25-2024 ambulatory Kyaw Arvizu Facility:[facility] Start: 08-18-2024 End: 08-18-[address] Kyaw Arvizu MD -Cat Scan, [facility] Work Phone: Start: 08-18-2024 End: 08-18-2024 ambulatory Kyaw Cyrus Kenan Facility:[facility] Start: 04-21-2024 End: 04-21-2024 ambulatory [facility] Kenan Facility:[facility] Start: 02-20-2024 End: 02-20-2024 ambulatory [facility] Kenan Facility:[facility] Start: 12-28-2023 End: 12-28-2023 ambulatory [facility] Kenan Facility:[facility] Start: 11-14-2023 End: 11-14-2023 ambulatory [facility] Kenan Facility:[facility] Start: 07-10-2022 End: 07-10-2022 ambulatory BRENDON DAWSON Facility:[facility] Start: 07-10-2022 End: 07-10-2022 Patient encounter procedure Brendon Dawson MD Work Phone: General Surgery Comment on above: Partial small bowel obstruction (HCC) (Primary Dx) Start: 06-21-2022 Non-patient / Non-visit Dr. Edward Arvizu Work Phone: [facility] Start: 06-19-2022 End: 06-21-2022 Evaluation and management of inpatient Dr. Kyaw Arvizu Work Phone: [facility]-Progressive Care Unit Start: 06-18-2022 End: 06-18-2022 Emergency department patient visit Dr. Kyaw Arvizu Work Phone: [facility]-Emergency Department Start: 04-30-2022 End: 04-30-[address] Kyaw Arvizu Work Phone: [facility] Start: 02-14-2022 End: 02-14-2022 Patient encounter procedure [facility]-Laboratory Start: 01-17-2022 End: 01-17-2022 Patient encounter procedure [facility]-Cat Scan, [facility] Start: 01-17-2022 End: 01-17-2022 Patient encounter procedure [facility]-Laboratory, Phy Office 3rd Flr Procedures Date Procedure Procedure Detail Performing Clinician Start: 08-25-2024 X-ray of thoracic sp ine, three views Dr. Kyaw Arvizu MD Work Phone: Start: 08-18-2024 Computed tomography of abdomen and pelvis with contrast Dr. Kyaw Arvizu MD Work Phone: Start: 06-20-[address] Kyaw Arvizu Work Phone: Start: 06-19-2022 Diagnostic radiograp hy of abdomen Dr. Kyaw Arvizu Work Phone: Start: 06-19-2022 Plain X-ray abdomen Dr. Kyaw Arvizu Work Phone: Start: 06-19-2022 Computed tomography angiography of abdominal and/or pelvic blood vessel Dr. Kyaw Arvizu Work Phone: Start: 06-18-2022 Computed tomography of abdomen and pelvis with intravenous contrast Dr. Kyaw Arvziu Work Phone: Start: 01-17-2022 Computed tomography of abdomen and pelvis with contrast Clostridium difficil e detection Enteric Bacteriology Lactoferrin measurement Measurement of occul t blood in stool specimen using immunoassay Ova OR parasites identification Plan of Treatment Date Care Activity Detail Author Start: 07-02-2022 ADVANCE DIRECTIVE DISCUSSION ADVANCE DIRECTIVE DISCUSSION [facility] Start: 07-02-2022 DEPRESSION ASSESSMENT DEPRESSION ASSESSMENT [facility] Start: 06-21-2022 Patient discharge [facility] Work Phone: Start: 06-21-2022 [facility] Work Phone: Start: 06-20-2022 [facility] Work Phone: Start: 06-20-2022 Nil by mouth [facility] Work Phone: Start: 06-19-2022 Following clinical pathway protocol [facility] Work Phone: Start: 06-19-2022 Catheterization of vein [facility] Work Phone: Start: 06-19-2022 Incentive spirometry [facility] Work Phone: Start: 06-19-2022 Measuring intake and output [facility] Work Phone: Start: 06-19-2022 Vital signs measurements [facility] Work Phone: Start: 06-19-2022 [facility] Work Phone: Start: 06-19-2022 Admission procedure [facility] Work Phone: Start: 06-19-2022 Ambulation without limitation [facility] Work Phone: Start: 06-19-2022 Assessment of risk of venous thromboembolism [facility] Work Phone: Start: 06-19-2022 [facility] Work Phone: Start: 03-02-2022 Influenza vaccination INFLUENZA (#1) [facility] Start: 12-26-2021 COVID-19 VACCINE (5 - Booster for Moderna series) COVID-19 VACCINE (5 - Booster for Moderna series) [facility] Start: 08-13-2011 DIABETES SCREEN DIABETES SCREEN [facility] Start: 09-16-2008 PNEUMOCOCCAL: 65+ (2 - PCV) PNEUMOCOCCAL: 65+ (2 - PCV) [facility] Start: 1991 SHINGRIX VACCINE (1 of 2) SHINGRIX VACCINE (1 of 2) [facility] Start: 02-01-1960 Urine microalbumin profile DTAP,TDAP,TD (1 - Tdap) [facility] Ova and parasites identified in Unspecified specimen by Light microscopy [facility] Work Phone: Patient Education ED Gastroenter itis, Viral (Adult) ED Vomiting (Adult) ED Abdominal Pain Unkn Cause Male... [facility] Work Phone: Patient referral [facility] Work Phone: Immunizations Immunization Date Immunization Notes Care Provider Gilbert prasad 10-31-2021 Covid (Moderna) Dr. Kyaw Arvizu Work Phone: [facility] 05-17-2021 Covid (Moderna) Dr. Kyaw Arvizu Work Phone: [facility] 04-15-2021 Influenza, high dose seasonal Dr. Kyaw Arvizu MD Work Phone: [facility] 04-15-2021 influenza, high dose seasonal, preservative-free Dr. Kyaw Arvizu Work Phone: [facility] Work Phone: 09-20-2020 tetanus toxoid, redu jonh diphtheria toxoid, and acellular pertussis vaccine, adsorbed [facility] 08-26-2020 Covid (Moderna) Dr. Kyaw Arvizu Work Phone: [facility] 07-29-2020 Covid (Moderna) Dr. Kyaw Arvizu Work Phone: [facility] 03-02-2020 influenza, injectabl e, quadrivalent, preservative free Dr. Kyaw Arvizu MD Work Phone: [facility] 03-02-2020 influenza, seasonal, injectable Dr. Kyaw Arvizu Work Phone: [facility] Work Phone: 12-24-[address] Kyaw Arvizu Work Phone: [facility] 07-22-[address] Kyaw Arvizu Work Phone: [facility] 04-23-2019 influenza, injectabl e, quadrivalent, preservative free Dr. Kyaw Arvizu MD Work Phone: [facility] 04-23-2019 influenza, seasonal, injectable Dr. Kyaw Arvizu Work Phone: [facility] Work Phone: 02-22-2017 influenza, injectabl e, quadrivalent, preservative free Dr. Kyaw Arvizu MD Work Phone: [facility] 02-22-2017 influenza, seasonal, injectable Dr. Kyaw Arvizu Work Phone: [facility] Work Phone: 06-15-2009 novel influenza-H1N1 -09, preservative-free, injectable Dr. Kyaw Arvizu Work Phone: [facility] 09-17-2007 pneumococcal polysaccharide vaccine, 23 valent Brendon Dawson MD Work Phone: [facility] Work Phone: 05-07-2007 influenza, injectabl e, quadrivalent, preservative free Dr. Kyaw Arvizu MD Work Phone: [facility] 05-07-2007 influenza, seasonal, injectable Dr. Kyaw Arvizu Work Phone: [facility] Work Phone: Payers Date Payer Category Payer Self-pay [id number] 2021 Unknown [id number] 2021 Unknown MMO MMO MEDICARE SUPPLEMENT [id number] 2021-Present [phone] [address] [place] [address] Indemnity [id number] 2006 Medicare [id number] 2006 Medicare MEDICARE MEDICAR E A AND B [id number] 2006-Present [phone] [address] [address] [place] [address] Medicare [id number] Unknown [id number] Unknown [id number] Unknown [id number] Unknown [id number] Unknown [id number] Unknown [id number] Unknown [id number] Social History Date Type Detail Facility Start: 09-30-2020 End: 06-19-2022 Tobacco smoking status NHIS Unknown if ever smoked [facility] Work Phone: Start: 1940 Sex Assigned At Male W [facility] Start: 06-19-2022 End: 07-10-2022 Tobacco smoking status NHIS Never smoked tobacco [facility] Start: 07-10-2022 Tobacco use and exposure Smokeless tobacco non-user [facility] Start: 07-10-2022 Alcohol intake Lifetime non-d sola (finding) [facility] Start: 1940 Sex Assigned At Not on file [facility] Start: 09-05-2024 Sex Male (finding) [facility] Goals Date Patient Goal Desired Activity /State Functional Status Date Assessment Result Facility 06-21-2022 Functional status Ambulates;Johnathan r;Bathroom Privilege [facility] Work Phone: 06-21-2022 Functional status Assistive Devices None [facility] Work Phone: Mental Status Date Assessment Result Facility 06-21-2022 Cognitive function Voice/Name [facility] Work Phone: Radiology Diagnostic study note 08-26-2024 Note Date & Type Note Facility 08-26-2024 Radiology Diagnostic study note [facility] Imaging Services [address], [place] [id number] Thoracic Spine 3 Views MR#: [id number] Acct: [id number] Name: EMY PERAZA [facility] Rep #: [id number] : 1940 M 84 From: Mathew Bower MD PCP: Dr. Kyaw Arvizu MD Status: REG C FLORA Study:Thoracic Spine 3 Views Date of Exam: 08/25/24 Exam# [id number] Ordering Dr: Kyaw Arvizu MD PROCEDURE: THORACIC SPINE 3 VIEWS REASON FOR EXAM: Thoracic radiculopathy. TECHNIQUE: AP and lateral view COMPARISON: None. FINDINGS: Normal vertebral heights. No evidence of fracture. Mild multilevel disc space narrowing. Normal alignment. No spondylolisthesis. Hyperinflation of the lungs. RAD/Thoracic Spine 3 Views IMPRESSION: Multilevel disc space narrowing and spondylosis. Reading Location: [id number] CC: Dr. Kyaw Arvizu MD ~ Shoe Associate: Signed [facility] Progress note 07-10-2022 Note Date & Type Note Facility 07-10-2022 Note HNO ID: [id number] Author: Brendon Dawson MD Service: ? Author Type: Physician Type: Progress Notes Filed: 07/14/2022 7:20 AM Note Text: Subjective: Patient recently admitted to [facility] with a partial small bowel obstruction which resolved on its own. Patient currently states his abdomen is soft tolerating a diet moving his bowels. Objective:Blood pressure 110/78, pulse 104, temperature 36.5 ?C (97.7 ?F), height 180.3 cm (5' 11), weight 73.5 kg (162 lb), SpO2 97 %. Abdomen is soft nontender nondistended Assessment: Partial small bowel obstruction Plan: This point we want to just have him gradually increase his activity gradually increase his diet small meals with plenty of fluids like for him to follow back up with me on an as-needed basis. [facility] History of Present illness Narrative 07-10-2022 Brendon Dawson MD - 07/10/2022 3:05 PM EST Note Date & Type Note Facility 07-10-2022 History of Presen t illness Narrative Subjective: Patient recently admitted to [facility] with a partial small bowel obstruction which resolved on its own. Patient currently states his abdomen is soft tolerating a diet moving his bowels. Objective:Blood pressure 110/78, pulse 104, temperature 36.5 C (97.7 F), height 180.3 cm (5' 11), weight 73.5 kg (162 lb), SpO2 97 %. Abdomen is soft nontender nondistended Assessment: Partial small bowel obstruction Plan: This point we want to just have him gradually increase his activity gradually increase his diet small meals with plenty of fluids like for him to follow back up with me on an as-needed basis. documented in this encounter [facility] Evaluation note Note Date & Type Note Facility Evaluation note No assessment information availa ble [facility] Work Phone: Evaluation note Note Date & Type Note Facility Evaluation note Diagnosis Onset Date Acute sinus infection acute [facility] Work Phone: Evaluation note Note Date & Type Note Facility Evaluation note Diagnosis Onset Date Acute sinus infection acute Abdominal pain, bilateral lower quadrant acute Nausea & vomiting acute Partial small bowel obstruction acute [facility] Work Phone: Evaluation note Note Date & Type Note Facility Evaluation note Diagnosis Partial small bowel obstruction (HCC)- Primary Unspecified intestinal obstruction documented in this encounter [facility] Discharge instructions Note Date & Type Note Facility Hospital Discharge instructions Additional Instructions Start a clear liquid diet and advance as tolerated. [facility] Work Phone: Reason for referral (narrative) Note Date & Type Note Facility Reason for referral (narrative) No reason for referral information available [facility] Work Phone: Chief Complaint and Reason for Visit Chief Complaint ABD PAIN Chief Complaint CONCERN FOR SI abd pain Reason for Visit Acute sinus infectio n Chief Complaint CONCERN FOR SI abd pain ABDOMINAL PAIN ABDOMINAL PAIN Reason for Visit Acute sinus infectio n Abdominal pain, bilateral lower quadrant Nausea & vomiting Partial small bowel obstruction Chief Complaint Admit Date ABD PAIN August 18, 2024 11:58am Advance Directives Advance Directive Response Recorded Date/ Time Advance Directives Yes October 02 9:23am Living Will Yes September 27, 2017 10:03am Power of Brick Maker Yes September 27 10:03am Advance Directive Response Recorded Date/ Time Advance Directives Yes October 02 8:23am Living Will No June 18 5:21pm Power of Brick Maker No June 18, 2022 5:21pm Advance Directive Response Recorded Date/ Time Name of Medical Power of Brick Maker KEVIN NEWPILLO HURTADO June 19, 2022 5:57am Advance Directives Yes October 02 8:23am Living Will Yes June 19 5:57am Power of Brick Maker Yes June 19, 2022 5:57am Advance Directive Response Recorded Date/ Time Advance Directives Yes October 02 8:23am Summary Purpose Family History No Family History Records FoundNo Family History Records Found Additional Source Comments Goals (unrecognized section and content) Goals may be documented in a n alternate sectionGoals may be documented in an alternate sectionGoals may be documented in an alternate sectionGoals may be documented in an alternate sectionGoals may be documented in an alternate section Source Comments (unrecognize d section and content) In the event this informatio n is protected by the Federal Confidentiality of Alcohol and Drug Abuse Patient Records regulations: The Federal rules restrict any use of the information to criminally investigate or prosecute any alcohol or drug abuse patient.[facility] Reason for Visit (unrecogniz ed section and content) Reason Comments Follow Up Twisted bowel Care Teams (unrecognized sec tion and content) Salon Manager Relationship Specialty Start Date End Date Kenan Kyaw Bridges PCP - General 08/04/09 Team Status: Active Member Role Status Dates Dr. Kyaw Arvizu MD Primary Care Provider Active Team Status: Inactive Member Role Status Dates Dr. Kyaw Arvizu MD Primary Care Provider Active Start: August 18, 2024 End: August 18, 2024 Dr. Kyaw Arvizu MD Attending Provider Active Start: August 18, 2024 End: August 18, 2024 Dr. Kyaw Arvizu MD Referring Provider Active Start: August 18, 2024 End: August 18, 2024 Team Status: Inactive Member Role Status Dates Dr. Kyaw Arvizu MD Primary Care Provider Active Start: August 25, 2024 End: August 25, 2024 Dr. Kyaw Arvizu MD Attending Provider Active Start: August 25, 2024 End: August 25, 2024 Dr. Kyaw rAvizu MD Referring Provider Active Start: August 25, 2024 End: August 25, 2024 (unrecognized sect ion and content) No Status Records FoundNo Status Records Found INFORMATION SOURCE (unrecogn ized section and content) DATE CREATED AUTHOR 07/14/2022 [facility] DATE CREATED AUTHOR BERNADINE PEGUERO 09/08/2024 [facility] FOR RECORDS PERTAINING TO PATIENTS WHO ARE [...] BE BASED ON THE PRIMARY CLINICAL RECORDS. [employer] provides no warranty or guarantee of the accuracy or completeness of information in this document.
== END | disposition home or self-care (01) ==
LOC: POLAB3 11:21
PROVIDERS: PCP Family Medicine Geriatric Medicine; Visit Provider Family Medicine Geriatric Medicine
DX: E05.90 Thyrotoxicosis, unspecified without thyrotoxic crisis or storm (principal); E55.9 Vitamin D deficiency, unspecified; R53.83 Other fatigue
CPT/HCPCS: 36415; 80053; 82306; 84443; 85025

== ENCOUNTER → 2025-03-09 | Outpatient (CLI) | payer MEDICARE, OTHER, SELFPAY ==
[2025-03-09 17:43] LABS: Hematocrit 42.6 % (40-54); Hemoglobin 14.3 g/dL (13.0-16.5); Immature Granulocytes Count 0.010 X10^3/uL (0.0-0.0); Mean Corp Hgb Conc 33.6 g/dL (32-36); Mean Corpuscular Volume 97.7 fL (80-94); Mean Platelet Vol. 9.2 fl (6.2-12.0); NRBC Flagged by Analyzer 0 % (0-5); Platelet Count 254 K/mm3 (150-450); RBC Distribution Width CV 13.0 % (11.6-14.6); RBC Distribution Width SD 46.9 fl (35.1-43.9); Red Blood Count 4.36 M/mm3 (4.6-6.2); White Blood Count 5.7 K/mm3 (4.4-11.0)
[2025-03-09 18:16] LABS: AST(SGOT) 19 U/L (<=37); Alanine Aminotransfer ALT/SGPT 10 U/L (<=46); Albumin, Serum 4.1 g/dL (3.4-4.8); Alkaline Phosphatase 106 U/L (40-129); Anion Gap 12 (5-15); BUN 14 mg/dL (4-19); BUN/Creat Ratio 13.7 RATIO (10-20); Calcium,Total 8.7 mg/dL (7.6-11.0); Carbon Dioxide 22.8 mmol/L (21.0-32.0); Chloride 101 mmol/L (98-108); Globulin 3.1 g/dL (2.2-4.2); Glucose 94 mg/dL (70-99); Potassium 4.1 mmol/L (3.3-5.1)
[2025-03-10 01:10] LABS: Xtra Tube Kwok EXTRA TUBE
== END | disposition home or self-care (01) ==
LOC: POLAB3 17:00
PROVIDERS: PCP Family Medicine Geriatric Medicine; Visit Provider Family Medicine Geriatric Medicine
DX: R19.7 Diarrhea, unspecified (principal); R53.83 Other fatigue
CPT/HCPCS: 80053; 82274; 83630; 85025; 87177; 87209; 87493; 87506